=== PATIENT | female | born 1975 | race Two or more races ===

== ENCOUNTER 2020-05-11 10:35 | Outpatient (REF) | payer SELFPAY ==
--- NOTE | 2020-05-11 | MM_ITS ---
EXAMINATION: MM SCREENING DIGITAL BREAST TOMOSYNTHESIS, BILATERAL CLINICAL INFORMATION: Screening. Asymptomatic. Family history breast cancer (mother, aunt, grandmother). The lifetime risk of breast cancer based on the Tyrer-Cuzick Model is 21%. COMPARISON: Mammography: 05/06/2019, 04/30/2018, 12/28/2016 TECHNIQUE: Digital breast tomosynthesis is performed in both the craniocaudal and mediolateral oblique views along with computer-aided detection (CAD). Synthesized 2D images are generated from the tomosynthesis. Additional left CC and right MLO views are provided. FINDINGS: There are scattered areas of fibroglandular density (ACR BI-RADS breast composition Category b). There are no significant masses, abnormal calcifications, or other abnormalities. Parenchymal pattern is similar to prior exams. There is no developing density. No significant changes. MM/MM tomosynthesis screening BI IMPRESSION: No mammographic evidence of malignancy. ASSESSMENT: BI-RADS 1: Negative RECOMMENDATION: Routine annual mammography screening. This patient's information was entered into a reminder system with a target due date for their next mammogram.
== END 2020-05-11 10:36 | disposition home or self-care (01) ==
LOC: HO.MAMMO 10:35
PROVIDERS: PCP Internal Medicine; Visit Provider Internal Medicine
DX: Z12.31 Encounter for screening mammogram for malignant neoplasm of breast (principal)
CPT/HCPCS: 77063; 77067

== ENCOUNTER 2020-09-14 10:17 | Outpatient (REF) | payer OTHER, SELFPAY ==
[2020-09-14 11:02] LABS: MANUAL DIFF FLAG NO
[2020-09-14 11:10] LABS: Basophils Absolute Auto 0.1 X10*3/uL (0.0-0.2); Basophils Percent Auto 0.7 % (0-2); Eosinophils Absolute Auto 0.1 X10*3/uL (0.0-0.4); Eosinophils Percent Auto 0.8 % (0-4); Hematocrit 43.8 % (37-47); Hemoglobin 14.3 g/dl (12.0-16.0); Imm Gran Abs Auto 0.02 X10*3/uL (0.00-0.03); Imm Gran Pct Auto 0.3 % (0.0-0.4); Lymphocytes Absolute Auto 2.1 X10*3/uL (1.2-4.9); Lymphocytes Percent Auto 28.4 % (20-40); Mean Corpuscular HGB Conc 32.6 g/dl (31.0-35.0); Mean Corpuscular Hemoglobin 29.9 pg (27.0-33.0); Mean Corpuscular Volume 91.6 fL (80-98); Mean Platelet Volume 10.9 fL (9.4-12.3); Monocytes Absolute Auto 0.6 X10*3/uL (0.1-1.2); Monocytes Percent Auto 7.4 % (2-11); Neutrophils Absolute Auto 4.7 X10*3/uL (2.0-8.3); Neutrophils Percent Auto 62.4 % (45-73); Platelet Count 270 X10*3/uL (160-400); Red Blood Count 4.78 X10*6/uL (4.20-5.50); Red Cell Distribution Width 14.2 % (11.0-16.0); White Blood Count 7.4 X10*3/uL (4.8-10.8)
[2020-09-14 11:27] LABS: Estimated Average Glucose 88 mg/dL; Hemoglobin A1c % 4.7 %
[2020-09-14 11:29] LABS: Alanine Aminotransferase 11 U/L (0-31); Albumin Level 4.4 g/dL (3.5-5.0); Alkaline Phosphatase 61 U/L (39-117); Anion Gap 13 (12-20); Aspartate Amino Transferase 13 U/L (5-31); Bilirubin Direct 0.3 mg/dL (0.0-0.5); Bilirubin Total 1.1 mg/dL (0.0-1.0); Blood Urea Nitrogen 12 mg/dL (9-16); Calcium 9.4 mg/dL (8.4-10.2); Carbon Dioxide 24 mmol/L (22-29); Chloride 108 mmol/L (96-108); Cholesterol 199 mg/dL; Estimated Glomerular Filt Rate > 60; Glucose Random 99 mg/dL (60-115); HDL Cholesterol 50 mg/dL; LDL Cholesterol Calculated 129 mg/dl; Potassium 4.7 mmol/L (3.3-5.1); Sodium 140 mmol/L (135-145); Total Protein 7.8 g/dL (6.5-8.0); Triglycerides 102 mg/dL
[2020-09-14 11:50] LABS: TSH reflex Free T4 1.44 uIU/mL (0.32-4.0); Vitamin D 25-OH Total 18.8 ng/mL (>30)
== END 2020-09-14 10:18 | disposition home or self-care (01) ==
LOC: HO.LAB 10:17
PROVIDERS: PCP Internal Medicine; Visit Provider Internal Medicine
DX: Z00.00 Encounter for general adult medical examination without abnormal findings (principal)
CPT/HCPCS: 36415; 80048; 80061; 80076; 82306; 83036; 84443; 85025

== ENCOUNTER 2021-07-19 08:55 | Outpatient (REF) | payer OTHER, SELFPAY ==
--- NOTE | ~2021-07-19 | MM_ITS ---
EXAMINATION: MM SCREENING DIGITAL BREAST TOMOSYNTHESIS, BILATERAL CLINICAL INFORMATION: Screening. Asymptomatic. The lifetime risk of breast cancer based on the Tyrer-Cuzick Model is 15%. COMPARISON: Mammography: 05/11/2020, 05/06/2019, 04/30/2018 TECHNIQUE: Digital breast tomosynthesis is performed in both the craniocaudal and mediolateral oblique views along with computer-aided detection (CAD). Synthesized 2D images are generated from the tomosynthesis. FINDINGS: There are scattered areas of fibroglandular density (ACR BI-RADS breast composition Category b). There are no significant masses, abnormal calcifications, or other abnormalities. Parenchymal pattern is similar to prior studies. There is no developing density or architectural abnormality. The axilla and skin contours are unremarkable. No significant changes. MM/MM tomosynthesis screening BI IMPRESSION: No mammographic evidence of malignancy. ASSESSMENT: BI-RADS 1: Negative RECOMMENDATION: Routine annual mammography screening. This patient's information was entered into a reminder system with a target due date for their next mammogram.
== END 2021-07-19 08:56 | disposition home or self-care (01) ==
LOC: HO.MAMMO 08:55
PROVIDERS: PCP Internal Medicine; Visit Provider Internal Medicine
DX: Z12.31 Encounter for screening mammogram for malignant neoplasm of breast (principal)
CPT/HCPCS: 77063; 77067

== ENCOUNTER 2022-07-25 08:52 | Outpatient (REF) | payer OTHER, SELFPAY ==
--- NOTE | ~2022-07-25 | MM_ITS ---
EXAMINATION: MM SCREENING DIGITAL BREAST TOMOSYNTHESIS, BILATERAL CLINICAL INFORMATION: Screening. Asymptomatic. The lifetime risk of breast cancer based on the Tyrer-Cuzick Model is 18%. COMPARISON: Mammography: 07/19/2021, 05/11/2020, 05/06/2019 TECHNIQUE: Digital breast tomosynthesis is performed in both the craniocaudal and mediolateral oblique views along with computer-aided detection (CAD). Synthesized 2D images are generated from the tomosynthesis. Additional right CC view is provided. FINDINGS: There are scattered areas of fibroglandular density (ACR BI-RADS breast composition Category b). There are no significant masses, abnormal calcifications, or other abnormalities. No architectural abnormality or developing density or significant change from prior studies. The axilla are unremarkable. Skin contours are smooth. MM/MM tomosynthesis screening BI IMPRESSION: No mammographic evidence of malignancy. ASSESSMENT: BI-RADS 1: Negative RECOMMENDATION: Routine annual mammography screening. This patient's information was entered into a reminder system with a target due date for their next mammogram.
== END 2022-07-25 08:53 | disposition home or self-care (01) ==
LOC: HO.MAMMO 08:52
PROVIDERS: Visit Provider Internal Medicine
DX: Z12.31 Encounter for screening mammogram for malignant neoplasm of breast (principal)
CPT/HCPCS: 77063; 77067

== ENCOUNTER 2023-01-30 09:10 | Outpatient (REF) | payer OTHER, SELFPAY ==
[2023-01-30 09:28] LABS: MANUAL DIFF FLAG NO
[2023-01-30 09:50] LABS: Basophils Absolute Auto 0.1 X10*3/uL (0.0-0.2); Basophils Percent Auto 0.7 % (0-2); Eosinophils Absolute Auto 0.2 X10*3/uL (0.0-0.4); Eosinophils Percent Auto 2.3 % (0-4); Hematocrit 44.2 % (37.0-47.0); Hemoglobin 14.3 g/dl (12.0-16.0); Imm Gran Abs Auto 0.02 X10*3/uL (0.00-0.03); Imm Gran Pct Auto 0.2 % (0.0-0.4); Lymphocytes Absolute Auto 2.1 X10*3/uL (1.2-4.9); Lymphocytes Percent Auto 24.5 % (20-40); Mean Corpuscular HGB Conc 32.4 g/dl (31.0-35.0); Mean Corpuscular Hemoglobin 29.9 pg (27.0-33.0); Mean Corpuscular Volume 92.3 fL (80.0-98.0); Mean Platelet Volume 10.4 fL (9.4-12.3); Monocytes Absolute Auto 0.6 X10*3/uL (0.1-1.2); Monocytes Percent Auto 7.5 % (2-11); Neutrophils Absolute Auto 5.4 x10*3/uL (2.0-8.3); Neutrophils Percent Auto 64.8 % (45-73); Platelet Count 294 X10*3/uL (160-400); Red Blood Count 4.79 X10*6/uL (4.20-5.50); White Blood Count 8.4 X10*3/uL (4.8-10.8)
[2023-01-30 09:57] LABS: Estimated Average Glucose 91 mg/dL; Hemoglobin A1c % 4.8 % (<6.0)
[2023-01-30 10:28] LABS: Alanine Aminotransferase 11 U/L (0-31); Albumin Level 4.2 g/dL (3.5-5.0); Alkaline Phosphatase 65 U/L (39-117); Anion Gap 14 (12-20); Aspartate Amino Transferase 13 U/L (5-31); Bilirubin Direct 0.2 mg/dL (0.0-0.5); Bilirubin Total 0.9 mg/dL (0.0-1.0); Blood Urea Nitrogen 14 mg/dL (9-16); Calcium 9.6 mg/dL (8.4-10.2); Carbon Dioxide 24 mmol/L (22-29); Chloride 106 mmol/L (96-108); Cholesterol 216 mg/dL (<200); Estimated Glomerular Filt Rate > 60; Glucose Random 93 mg/dL (60-115); HDL Cholesterol 52 mg/dL (>40); LDL Cholesterol Calculated 143 mg/dL (<100); Potassium 4.3 mmol/L (3.3-5.1); Sodium 140 mmol/L (135-145); Total Protein 7.7 g/dL (6.5-8.0); Triglycerides 106 mg/dL (<150)
[2023-01-30 10:46] LABS: Thyroid Stimulating Hormone 2.35 uIU/mL (0.32-4.0)
[2023-02-05 15:29] LABS: Anti Nuclear Antibody Screen NEGATIVE (NEGATIVE)
== END 2023-01-30 09:11 | disposition home or self-care (01) ==
LOC: HO.LAB 09:10
PROVIDERS: PCP Internal Medicine; Visit Provider Internal Medicine
DX: R53.82 Chronic fatigue, unspecified (principal)
CPT/HCPCS: 36415; 80048; 80061; 80076; 83036; 84443; 85025; 86038

== ENCOUNTER 2023-05-07 10:44 | Outpatient (AMB) | payer OTHER, SELFPAY ==
--- NOTE | 2023-05-07 10:48 | A.OFFVIS_ITS ---
Intake Vital Signs 05/07/23 10:50 Height 5 ft 3 in Weight 248 lb 7.375 oz BMI 44.0 BP 112/70 Blood Pressure Location Lt brachial Position Sitting Pulse 80 Pulse Source Pulse Oximeter Temp 97 F Temp Source Skin Pulse Oximetry (%) 98 Oxygen Delivery Method Room Air Intake Visit Reasons: + JIM Intake Note: New pt presents today for +JIM consult. C/o joint pain, fatigue, difficulty staying asleep due to pain, feels the pain in her bones, hip pain. Pain started approx at age 14. Former rheum patient in [place] where she was diagnosed with JIM. States seen by our department 4-5 years ago. 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 C/o joint pain, fatigue, difficulty staying asleep due to pain, feels the pain in her bones, hip pain. Pain started approx at age 14. Former rheum patient in [place] where she was diagnosed with JIM. States seen by our department 4-5 years ago.? Patient snores loudly. Has difficulty falling and staying asleep. Her pain is most severe at night. 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, 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 Female Reproductive History Menstrual Total pregnancies: 3 Ab spontaneous: 1 Review of Systems Const Reports fatigue, Reports headache(s) and Reports weight gain ENT Reports headache(s) Musc Reports arthralgias, Reports joint swelling and Reports stiffness Skin/Breast Reports pruritus and Reports rash Neuro Reports headache(s) Psych Reports abnormal sleep pattern, Reports anxiety and Reports depression Endo Reports fatigue Physical Exam Vital Signs: Last Vital Signs Temp 97 F 05/07/23 10:50 Pulse 80 05/07/23 10:50 BP 112/70 05/07/23 10:50 Pulse Ox 98 05/07/23 10:50 Oxygen Delivery Method Room Air 05/07/23 10:50 BMI result Body Mass Index 44.0 Const General: cooperative, healthy appearing and comfortable Nutritional Appearance: obese morbidly obese Orientation/consciousness: patient oriented x3 Limitations: no limitations HEENT Head: Yes normocephalic and Yes atraumatic Mouth: moist mucous membranes Resp Effort & Inspection: normal respiratory effort and able to speak in complete sentences Auscultation: clear to auscultation bilaterally Cardio Rate: regular rate Rhythm: regular rhythm Skin Other: Dry skin on knuckles General skin exam: no rashes or lesions noted Neuro General: patient oriented x3 Extrem Other: Multiple fibromyalgia tender points Normal nailfold capillaroscopy No active synovitis Results Reviewed Results Reviewed: Labs 03/2022? Positive JIM direct ESR 9 Labs 01/2023? JIM by IFA negative Basic metabolic normal? HbA1c 4.8% CBC unremarkable? TSH 2.35 Collection Date - 03/30/2017)?ANTIBODY TO SS-A ANTIGEN? <1.0? <1.0 - AI?ANTIBODY TO SS-B ANTIBODY? <1.0? <1.0 - AI?Clinical Info: Negative lab? Lab:14-3-3 ETA PROTEIN (Order Date - 03/30/2017) (Collection Date - 03/30/2017)?14-3-3 ETA PROTEIN <0.2? <0.2 - ng/mL?Clinical Info: Negative lab? Lab:CPK (Order Date - 03/30/2017) (Collection Date - 03/30/2017)?CPK? 87? 26-140 - U/L?Clinical Info: Normal lab? Lab:LYME IGM & IGG RFLX WB (Order Date - 03/30/2017) (Collection Date - 03/30/2017)?LYME IGM NEGATIVE? NEGATIVE -?LYME IGG NEGATIVE? NEGATIVE -?Clinical Info: Negative lab? Lab:SCLERODERMA AB (Order Date - 03/30/2017) (Collection Date - 03/30/2017)?SCLERODERMA AB? <1.0? <1.0 - AI?Clinical Info: Negative lab? Lab:DNA,DOUBLE STRANDED AB ([place]) (Order Date - 03/30/2017) (Collection Date - 03/30/2017)?DNA DOUBLE STRANDED? 6 AA <=4 - IU/mL?Clinical Info: Indeterminate lab? Lab:CYCLIC CITRULINATED PEPTIDE AB ([facility]) (Order Date - 03/30/2017) (Collection Date - 03/30/2017)?CYCLIC CITRULINATED PEPTIDE AB <16? <20 - Units?Clinical Info: Negative lab? Assessment & Plan Assessment & Plan (1) JIM positive: Code(s): R76.8 - Other specified abnormal immunological findings in serum Plan: This is a 47-year-old female presents for evaluation of positive JIM. Apparently patient had a positive JIM since 2016. In 2021 I see a positive JIM direct, when JIM was repeated by IFA in 01/2023 it was negative. I do not see any signs of an autoimmune rheumatic disease upon my evaluation. Positive JIM can be seen in up to 20% of the population with no autoimmune rheumatic disease. Follow-up with PCP Plan I spent 25 minutes reviewing patient's chart, evaluating patient, counseling patient and documenting in the chart Coding Level of Care Code New Pt Level 3 (05000) Diagnoses JIM positive R76.8
[2023-05-07 10:50] VITALS: BP 112/70; PULSE 80; TEMP 36.1; O2SAT 98; BMI 44.0
== END 2023-05-07 11:21 | disposition home or self-care (01) ==
PROVIDERS: PCP Internal Medicine; Visit Provider Student in an Organized Health Care Education/Training Program
DX: R76.8 Other specified abnormal immunological findings in serum (principal)
CPT/HCPCS: 99203

== ENCOUNTER → 2023-05-07 10:44 | Outpatient (BNVA) | payer OTHER, SELFPAY | PROVIDERS: PCP Internal Medicine; Visit Provider Student in an Organized Health Care Education/Training Program | DX: R76.8 Other specified abnormal immunological findings in serum (principal) | CPT/HCPCS: 99202 ==

== ENCOUNTER 2023-07-31 08:54 | Outpatient (REF) | payer OTHER, SELFPAY | END 2023-07-31 08:55 | disposition home or self-care (01) | LOC: HO.MAMMO 08:54 | PROVIDERS: PCP Internal Medicine; Visit Provider Internal Medicine | DX: Z12.31 Encounter for screening mammogram for malignant neoplasm of breast (principal) | CPT/HCPCS: 77063; 77067 ==

== ENCOUNTER → 2023-07-31 09:00 | Outpatient (BNV) | payer OTHER, SELFPAY | PROVIDERS: PCP Internal Medicine; Visit Provider Radiology Diagnostic Radiology | DX: Z12.31 Encounter for screening mammogram for malignant neoplasm of breast (principal) | CPT/HCPCS: 77063; 77067 ==

== ENCOUNTER 2024-01-05 09:44 | Outpatient (REF) | payer OTHER, SELFPAY ==
--- NOTE | ~2024-01-05 | XR_ITS ---
EXAMINATION: XR SHOULDER, LEFT CLINICAL INFORMATION: M25.512 - Pain in left shoulder COMPARISON: Shoulder radiographs 06/04/2019 TECHNIQUE: Three views of the shoulder. FINDINGS: No acute fracture or dislocation. Mild osteoarthritis of the shoulder, possibly slightly progressed from prior. Soft tissues are unremarkable. XR/XR shoulder LT min 2V IMPRESSION: Mild osteoarthritis of the shoulder, possibly slightly progressed from prior. Electronically signed by: Ness High MD 02/09/2024 12:42 PM EDT
== END 2024-01-05 09:45 | disposition home or self-care (01) ==
LOC: HO.HOSX 09:44
PROVIDERS: Visit Provider Physician Assistant
DX: M25.512 Pain in left shoulder (principal); M75.82 Other shoulder lesions, left shoulder; M54.2 Cervicalgia; G89.29 Other chronic pain
CPT/HCPCS: 20610; 73030; 99202; J1010

== ENCOUNTER 2024-01-05 15:29 | Outpatient (AMB) | payer OTHER, SELFPAY ==
--- NOTE | 2024-01-05 15:46 | A.OFFVIS_ITS ---
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 She states she has pain in her left shoulder that is aggravated with reaching back, lifting, and sleeping at night. She also reports pain in her neck with turning to the left. She works at [employer]. [facility] Medical History (Updated 01/05/24 @ 15:56 by Mumtaz Gomes PA-C) Angioedema Chronic low back pain Urinary incontinence Pain in joint, multiple sites Fatigue JIM positive Surgical History (System 12/07/23 @ 12:19 by Mamta Rincon) H/O foot surgery No history of previous surgery Family History Mother JIM positive Arthritis Social History (System 12/07/23 @ 12:19 by Mamta Rincon) Household Members: Spouse and Children Alcohol intake: current Alcohol intake frequency: holidays/special occasions only Alcohol type: wine Patient Tobacco Use Status: Never used Tobacco Current occupational status: employed 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, 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 Review of Systems Const All systems reviewed & are unremarkable except as noted in HPI and below Physical Exam Vital Signs: BMI result Body Mass Index 40.7 Const General: cooperative, healthy appearing, comfortable, no acute distress, well developed and alert Orientation/consciousness: patient oriented x3 HEENT Head: Yes normal to inspection, Yes normocephalic and Yes atraumatic Eyes General: appearance normal, both eyes and all related structures Resp Effort & Inspection: normal respiratory effort and able to speak in complete sentences Cardio Rate: regular rate Peripheral pulses: Peripheral pulses 2+ throughout GI Palpation (GI): Soft to palpation Skin Lesions: no lesions Rashes: no rashes Neuro General: patient oriented x3 Extrem Other: Left shoulder: Normal to inspection. Tenderness over the bicipital groove and along the deltoid region of the shoulder. Forward flexion to 175, external rotation to 90, internal rotation to S1. 5/5 RTC strength. Positive O?Abraham?s. NVI. Office Procedures Joint Injection/Aspiration Joint Injection/Aspiration Primary Site: left shoulder Prep: site was prepped using aseptic technique, ethochloride spray was applied and injection warnings given Injected: 80 mg of, DepoMedrol, with 8 mL of, 1% plain lidocaine and in the joint Approach Used: anterolateral Procedure: The patient tolerated the procedure well and there was some relief with the local anesthesia Coding - Glenohumeral/Tronchanteric Bursa/Intraarticular Procedure code (CPT) selection complete Results Reviewed Results Reviewed: Xrays were obtained in the office today and personally reviewed by me of the left shoulder show mild ac oa Assessment & Plan Assessment & Plan (1) Tendonitis of left rotator cuff: Code(s): M75.82 - Other shoulder lesions, left shoulder Category: Medical (2) Myofascial neck pain: Code(s): M54.2 - Cervicalgia Category: Medical Plan We discussed options today, which include steroid injection. The patient did consent to move forward with the left shoulder injection, which was tolerated well. I recommended rest, ice, and elevation and OTC anti-inflammatories as needed for discomfort. If symptoms persist or worsen, patient will contact the office, otherwise follow-up as needed. Orders: Orders XR shoulder LT min 2V 01/05/24 M25.512 - Pain in left shoulder PT Evaluation and Treatment 01/05/24 M75.82 - Other shoulder lesions, left shoulder, M54.2 - Cervicalgia Patient Instructions: Scribed for Mumtaz Gomes PA-C, by Isac Thompson claim review medical director, on 01/05/2024 at 3:30 PM EST.? I, Mumtaz Gomes PA-C, have personally reviewed and agree with the information entered by the scribe. Coding Level of Care Code New Pt Level 3 (43439) Diagnoses Tendonitis of left rotator cuff M75.82 Myofascial neck pain M54.2 CPT Codes Coding - Joint 7: - Glenohumeral/Tronchanteric Bursa/Intraarticular ([id number])
[2024-01-05 15:47] VITALS: BMI 40.7
== END 2024-01-05 16:17 | disposition home or self-care (01) ==
PROVIDERS: PCP Internal Medicine; Visit Provider Physician Assistant
DX: M75.82 Other shoulder lesions, left shoulder (principal); M54.2 Cervicalgia
CPT/HCPCS: 20610; 99203

== ENCOUNTER 2024-06-12 15:02 | Outpatient (REF) | payer OTHER, SELFPAY ==
[2024-06-16 14:26] LABS: H Pylori Breath Test Negative (Negative)
== END 2024-06-12 15:03 | disposition home or self-care (01) ==
LOC: HO.LNP 15:02
PROVIDERS: PCP Internal Medicine; Visit Provider Internal Medicine
DX: K21.9 Gastro-esophageal reflux disease without esophagitis (principal); R19.4 Change in bowel habit; R13.10 Dysphagia, unspecified; R11.10 Vomiting, unspecified; E78.5 Hyperlipidemia, unspecified; Z11.2 Encounter for screening for other bacterial diseases
CPT/HCPCS: 83013; 99202

== ENCOUNTER 2024-06-12 15:02 | Outpatient (AMB) | payer OTHER, SELFPAY ==
--- NOTE | 2024-06-12 15:04 | MHC.OFFVIS ---
Vital Signs 06/12/24 15:05 Height 5 ft 3 in Weight 240 lb 4.862 oz BMI 42.6 BP 140/73 H Blood Pressure Location Lt brachial Position Sitting Pulse 79 Intake Visit Reasons: Gastroesophageal reflux disease (GERD) Intake Note: Aura presents in the office as a new patient for GERD. CC: She is here today because of acid reflux - she diarrhea. She gets a strange feeling - after COVID everything seems to have changed. She gets a hot feeling in her throat after eating or drinking. 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 Describes this as burning sensation coming up to her throat. Has regurgitation occasionally. Sometimes also has sensation of food stuck in throat, has to neisha with liquids. Sx occur at least once a month. Takes PPI as needed. EGD done more than 10 years ago in [place]. Additionally, also has constipation. Reprots for hte past 4-5 years also has been having liquid/mushy stools. NO blood in stool. No unintentional weight loss. No fam hx of CRC. Mother has breast ca. PFSH Medical History Angioedema Chronic low back pain Urinary incontinence Pain in joint, multiple sites Fatigue JIM positive Surgical History History of esophagogastroduodenoscopy (EGD) H/O foot surgery No history of previous surgery Family History Mother IJM positive Arthritis Social History Household Members: Spouse and Children Alcohol intake: current Alcohol intake frequency: holidays/special occasions only Alcohol type: wine Patient Tobacco Use Status: Never used Tobacco Current occupational status: employed Current occupation: [employer], 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 Review of Systems Const All systems reviewed & are unremarkable except as noted in HPI and below Physical Exam Vital Signs: Last Vital Signs Pulse 79 06/12/24 15:05 BP 140/73 H 06/12/24 15:05 BMI result Body Mass Index 42.6 No apparent distress Nonicteric Abdomen soft, nondistended Alert and oriented x3, normal gait Assessment & Plan Assessment & Plan (1) Change in bowel habit: Code(s): R19.4 - Change in bowel habit Category: Medical (2) Dysphagia: Code(s): R13.10 - Dysphagia, unspecified Category: Medical (3) Regurgitation of food: Code(s): R11.10 - Vomiting, unspecified Category: Medical (4) GERD (gastroesophageal reflux disease): Code(s): K21.9 - Gastro-esophageal reflux disease without esophagitis Category: Medical Plan 1. Abd pain/reflux/regurgitation Ddx include GERD, esophagitis, EoE, dysmotility. Plan: - Check H Pylori in office - Labs as below - Barium swallow - Reviewed that PPI not as effective as PRN med. Can take pepcid as needed instead. 2. Change in bowel habits Ddx include IBD, celiac, IBS, microscopic colitis, SIBO, gallstones. Plan: - LAbs as below - EGD/colo to be booked for further evaluation Follow up after scopes Orders: Orders Hemoglobin A1c Today E78.5 - Hyperlipidemia, unspecified Lipid Panel Today E78.5 - Hyperlipidemia, unspecified Calprotectin, Fecal Today R19.4 - Change in bowel habit Liver Panel Today R19.4 - Change in bowel habit FL barium swallow Today R13.10 - Dysphagia, unspecified Transglutaminase IgA Today R19.4 - Change in bowel habit Immunoglobulin A Today R19.4 - Change in bowel habit Medications: New peg 3350-electrolytes 236-22.74-6.74 -5.86 gram (Golytely) as per split prep instructions, until fecal effluent is clear 240 mL PO Q10M 4,000 mL 0RF colonoscopy famotidine (Pepcid) 20 mg PO BEDTIME 90 tabs 0RF Coding Level of Care Code New Pt Level 4 (10505) Complex EM visit Add On G2211 Diagnoses Change in bowel habit R19.4 Dysphagia R13.10 Regurgitation of food R11.10 GERD (gastroesophageal reflux disease) K21.9
[2024-06-12 15:05] VITALS: BP 140/73; PULSE 79; BMI 42.6
== END 2024-06-12 15:51 | disposition home or self-care (01) ==
PROVIDERS: PCP Internal Medicine; Visit Provider Internal Medicine
DX: R19.4 Change in bowel habit (principal); R13.10 Dysphagia, unspecified; R11.10 Vomiting, unspecified; K21.9 Gastro-esophageal reflux disease without esophagitis
CPT/HCPCS: 99204; G2211

== ENCOUNTER 2024-08-21 08:03 | Outpatient (REF) | payer MEDICAID, SELFPAY ==
[2024-08-21 09:01] LABS: Estimated Average Glucose 100 mg/dL; Hemoglobin A1c % 5.1 % (<6.0); Total Hemoglobin (HGBA1C) 3810.5149 umol/L
[2024-08-21 09:13] LABS: Alanine Aminotransferase 12 U/L (0-31); Albumin Level 4.1 g/dL (3.5-5.0); Alkaline Phosphatase 70 U/L (39-117); Aspartate Amino Transferase 15 U/L (5-31); Bilirubin Direct 0.2 mg/dL (0.0-0.5); Bilirubin Total 0.5 mg/dL (0.0-1.0); Cholesterol 222 mg/dL (<200); HDL Cholesterol 68 mg/dL (>40); LDL Cholesterol Calculated 139 mg/dL (<100); Total Protein 7.5 g/dL (6.5-8.0); Triglycerides 78 mg/dL (<150)
[2024-08-22 07:34] LABS: Immunoglobulin A 277 mg/dL (47-310)
[2024-08-24 07:38] LABS: Transglutaminase IgA <1.0 U/mL
== END 2024-08-21 08:04 | disposition home or self-care (01) ==
LOC: HO.LAB 08:03
PROVIDERS: Visit Provider Internal Medicine
DX: E78.5 Hyperlipidemia, unspecified (principal); R19.4 Change in bowel habit
CPT/HCPCS: 36415; 80061; 80076; 82784; 83036; 86364

== ENCOUNTER 2024-08-23 08:42 | Outpatient (REF) | payer MEDICAID, SELFPAY ==
[2024-08-30 20:18] LABS: Calprotectin, Fecal 22 mcg/g
== END 2024-08-23 08:43 | disposition home or self-care (01) ==
LOC: HO.LNP 08:42
PROVIDERS: Visit Provider Internal Medicine
DX: R19.4 Change in bowel habit (principal)
CPT/HCPCS: 83993

== ENCOUNTER 2024-08-24 18:27 | Outpatient (REF) | payer MEDICAID, SELFPAY ==
[2024-08-29 14:54] LABS: HPV Genotype 16 Negative (Negative); HPV Genotype 18 Negative (Negative); HPV High Risk Negative (Negative)
== END 2024-08-24 18:28 | disposition home or self-care (01) ==
LOC: HO.LNP 18:27
PROVIDERS: Visit Provider Internal Medicine
DX: Z12.4 Encounter for screening for malignant neoplasm of cervix (principal); Z11.51 Encounter for screening for human papillomavirus (HPV)
CPT/HCPCS: 87626; 88175

== ENCOUNTER 2024-08-29 14:53 | Outpatient (REF) | payer MEDICAID, SELFPAY ==
--- OUTSIDE RECORDS SUMMARY | 2024-08-29 17:44 | XMS_ITS | Encounter Summary ---
Author Organization [employer] Address [address] [facility] [address] [address] Care Team Providers Care Digital X Ray Service Engineer Name Role Phone Beth Donnelly MD Primary Care Provide r Encounter Details Date Type Department Care Team ([facility] st Contact Info) Description 08/24/2024 Orders Only [facility] MEDICINE [address] [place], [place] [phone] Beth Donnelly MD [address] [place], [place] [phone] Social History Tobacco Use Types Packs/Day Years [...] Care Team (Late st Contact Info) Description 09/01/2024 2:45 PM EDT Office Visit [facility] MEDICINE [address] [place] [address] Beth Donnelly MD [address] [place] [address] 01/30/2025 3:00 PM EDT Office Visit [facility] ADULT DENTAL [address] [place] [address] Alma Tellez documented as of this encounter Procedures Procedure Name Priority Date/Time Associated Diagnosis Comments HPV DNA, LOW/HIGH RISK Routine 08/24/2024 11:34 AM EDT documented in this encounter Results * HPV DNA, Low/High Risk (08/24/2024 11:34 AM EDT) HPV High Risk Negative Negative [facility] HPV Genotype 16 Negative Negative [facility] HPV Genotype 18 Negative Negative [facility] Comment:HPV testing performe d at [facility] (CLIA#[id number]), [address] [place] [address].Testing for HPV was performed using the Tai AMARILIS 6800system. The presence of HPV in the female genital tract isassociated with a number of diseases, including cervicalcarcinoma. The HPV DNA high risk pool tests for HPV 31, 33,35, 39, 45, 51, 52, 56, 58, 59, 66 and 68. The testing forHPV 16 and 18 genotypes has also been performed. A positiveresult indicates detection of nucleic acid sequences fromone or more subtypes, whereas a negative result indicatessuch sequences were not detected. 08/24/2024 11:3 4 AM EDT 08/25/2024 6:50 AM EDT us Beth Gomez MD LAB BLOOD ORDERABLES Final Result [facility] [address] [place] [address] [phone] documented in this encounter Visit Diagnoses Not on filedocumented in this encounter Additional Health Concerns Assessment Noted Time PHQ-9 Depression Total Score: 0 01/21/20 23 3:27 PM EDT documented as of this encounter Care Teams Digital X Ray Service Engineer Relationship Specialty Start Date End Date Beth Donnelly MD [address] [place] [phone] PCP - General Family Medicine 05/01/19 documented as of this encounter
--- OUTSIDE RECORDS SUMMARY | 2024-08-29 17:44 | XMS_ITS | Encounter Summary ---
Author Organization [employer] Address [address] [facility] 7[facility] [place] [address] Care Team Providers Care Air Pollution Compliance Inspector Name Role Phone Beth Donnelly MD Primary Care Provide r Encounter Details Date Type Department Care Team (Latest Contact Info) Description 08/24/2024 Travel Social History Tobacco Use Types Packs/Day Years Used Date Smoking Tobacco: Never Passive Smoke Exposure: Never Smokeless Tobacco: Never Depression Answer Date Recorded Patient Health Questionnaire-9 Score 0 01/20/2023 Housing Stability Answer Date Recorded What is your housing situation today? I have junidavina arreola 03/17/[address] you [...] Description 09/01/2024 2:45 PM EDT Office Visit [facility] MEDICINE [address] [place] [address] Beth Donnelly MD [address] [place] [address] 01/30/2025 3:00 PM EDT Office Visit [facility] ADULT DENTAL [address] [place] [address] Alma Tellez documented as of this encounter Visit Diagnoses Not on filedocumented in this encounter Additional Health Concerns Assessment Noted Time PHQ-9 Depression Total Score: 0 01/21/20 23 3:27 PM EDT documented as of this encounter Care Teams Air Pollution Compliance Inspector Relationship Specialty Start Date End Date Beth Donnelly MD [address] [place] [address] [phone] PCP - General Family Medicine 05/01/19 documented as of this encounter
--- OUTSIDE RECORDS SUMMARY | 2024-08-29 17:44 | XMS_ITS | Clinical Summary ---
Author Organization [facility] Address [address] [place] [address] Phone Care Team Providers Care Financial Management Consultant Name Role Phone Frankie Ambriz MD Primary Care Provider [phone] Allergies Active Allergy Reactions Criticality Noted Date Comments Ibuprofen Angioedema High 08/20/2024 Medications No known medications Active Problems No known active problems Encounters Date Type Department Care Team Description 08/20/2024 9:44 AM EDT - 08/20/2024 2:10 PM EDT Emergency Emergency [address] [place] [address] Lux Palacios MD RSV infection (Primary Dx); Acute nonintractable headache, unspecified headache type Discharge Disposition: Home or Self Care from Last 3 Months Social History Tobacco Use Types Packs/Day Years Used Date Smoking Tobacco: Never Smokeless Tobacco: Never Tobacco Cessation:Counseling Given: Not Answered Comments Unknown Sex and Gender Information Value Date Recorded Sex Assigned at Female 08/20/2024 10:30 AM EDT Legal Sex Female 7:33 PM EST Gender Identity Female 08/20/2024 10:30 AM EDT Sexual Orientation Straight 08/20/2024 10 :30 AM EDT Obstetrics History Last Filed Vital Signs Vital Sign Reading Time Taken Comments Blood Pressure 149/75 08/20/2024 1:03 PM EDT Pulse 72 08/20/2024 1:03 PM EDT Temperature 36.5 ??C (97.7 ??F) 08/20/2024 1:03 PM ED T Respiratory Rate 17 08/20/2024 1:03 PM EDT Oxygen Saturation 99% 08/20/2024 1:03 PM EDT Inhaled Oxygen Concentration - - Weight 109 kg (240 lb) 08/20/2024 9:21 AM EDT Height 160 cm (5' 3 ) 08/20/2024 9:21 AM EDT Body Mass Index 42.51 08/20/2024 9:21 AM EDT Plan of Treatment Health Maintenance Due Date Last Done Comments Breast Cancer Screening 1974 DTaP,Tdap,and Td Vaccines (1 - Tdap) 1993 Hepatitis B Vaccines (1 of 3 - 19+ 3-dose series) 1993 Cervical Cancer Screening: Pap Smear 08/20/1995 Colorectal Cancer Screening: Colonoscopy 05/02/2022 HIV Screening 05/02/2022 Hepatitis C Screening 05/02/2022 Social Influencers of Health Screening 05/02/2022 Depression Screening 01/21/2024 01/20/2023 COVID-19 Vaccine ( season) 2024 04/28/2021, 07/26/2020, 07/05/2020 Pneumococcal Vaccine: 50+ Years (1 of 1 - PCV) 2024 Zoster Vaccines (1 of 2) 2024 Cholesterol Screening (Lipid Panel) 01/31/2028 01/30/2023 Influenza Vaccine Completed 03/02/2024, , 03/27/2020, Additional [...] 64 Years) Aged Out No longer eligible based on patient's age to complete this topic RSV Immunization Patients Under 20 months Aged Out No longer eligible based on patient's age to complete this topic Varicella Vaccines Aged Out No longer eligible based on patient's age to complete this topic Procedures Procedure Name Priority Date/Time Associated Diagnosis Comments CBC WITH AUTO DIFFERENTIAL STAT 08/20/2024 11:37 AM EDT BASIC METABOLIC PANEL STAT 08/20/2024 11:37 AM EDT CBC AND DIFFERENTIAL STAT 08/20/2024 11:37 AM EDT RESPIRATORY VIRUS PANEL MOLECULAR STUDY STAT 08/20/2024 11:[address] HEAD WO CONTRAST STAT 08/20/2024 1 1:31 AM EDT from Last 3 Months Results * (ABNORMAL) Respiratory virus panel molecular study (08/20/2024 11:37 AM EDT) Adenovirus Detection by PCR Not Detected Not Detected LAB MICROBIOLOGY METHOD 08/20/2024 1:28 PM EDT [facility] Influenza A PCR Not Detected Not Detected LAB MICROBIOLOGY METHOD 08/20/2024 1:28 PM EDT [facility] Influenza B PCR Not Detected Not Detected LAB MICROBIOLOGY METHOD 08/20/2024 1:28 PM EDT [facility] Coronavirus 229E Not Detected Not Detected LAB MICROBIOLOGY METHOD 08/20/2024 1:28 PM EDT [facility] Coronavirus HKU1 Not Detected Not Detected LAB MICROBIOLOGY METHOD 08/20/2024 1:28 PM EDT [facility] Coronavirus OC43 Not Detected Not Detected LAB MICROBIOLOGY METHOD 08/20/2024 1:28 PM EDT [facility] Coronavirus NL63 Not Detected Not Detected LAB MICROBIOLOGY METHOD 08/20/2024 1:28 PM EDT [facility] Parainfluenza Virus 1 Not Detected Not Detected LAB MICROBIOLOGY METHOD 08/20/2024 1:28 PM EDT [facility] Parainfluenza Virus 2 Not Detected Not Detected LAB MICROBIOLOGY METHOD 08/20/2024 1:28 PM EDT [facility] Parainfluenza Virus 3 Not Detected Not Detected LAB MICROBIOLOGY METHOD 08/20/2024 1:28 PM EDT [facility] Parainfluenza Virus 4 Not Detected Not Detected LAB MICROBIOLOGY METHOD 08/20/2024 1:28 PM EDT [facility] RSV PCR Detected(A ) Not Detected LAB MICROBIOLOGY METHOD 08/20/2024 1:28 PM EDT [facility] Human Metapneumovirus A and B Not Detected Not Detected LAB MICROBIOLOGY METHOD 08/20/2024 1:28 PM EDT [facility] Rhinovirus/Entero virus Not Detected Not Detected LAB MICROBIOLOGY METHOD 08/20/2024 1:28 PM EDT [facility] Bordetella pertussis Not Detected Not Detected LAB MICROBIOLOGY METHOD 08/20/2024 1:28 PM EDT [facility] Bordetella parapertussis Not Detected Not Detected LAB MICROBIOLOGY METHOD 08/20/2024 1:28 PM EDT [facility] Mycoplasma pneumo by PCR Not Detected Not Detected LAB MICROBIOLOGY METHOD 08/20/2024 1:28 PM EDT [facility] Chlamydia pneumoniae Not Detected Not Detected LAB MICROBIOLOGY METHOD 08/20/2024 1:28 PM EDT [facility] SARS COV-2 Not Detected Not Detected LAB MICROBIOLOGY METHOD 08/20/2024 1:28 PM EDT [facility] Swab Both anterior nares / Unknown Non-blood Collection / Unknown 08/20/2024 11:37 AM EDT 08/20/2024 12:10 PM EDT [facility] - 08/20/2024 1:28 PM EDT Testing was performed using the Outcome Referrals Respiratory Pathogen PCR Assay. All results must be correlated with the clinical findings. Results should not be used as the sole basis for diagnosis. False Negative results may occur from the presence of sequence variants in the region targeted by the assay or the presence of inhibitors. Results may be affected by concurrent antiviral/antimicrobial therapy or levels of organisms that are below the limit of detection. us Reynold TRUJILLO LAB MICROBIOLOGY - GENERAL ORDER SANG Final Result [facility] [address] [place] [address], * (ABNORMAL) CBC auto differential (08/20/2024 11:37 AM EDT) Pathologist [facility] WBC 7.3 4.8 - 10.8 K/mcL LAB HEMETOLOGY METHOD 08/20/2024 12:15 PM EDT [facility] RBC 5.10(H) 3.80 - 4.80 M/mcL LAB HEMETOLOGY METHOD 08/20/2024 12:15 PM EDT [facility] Hemoglobin 15.1 11.5 - 16.0 g/dL LAB HEMETOLOGY METHOD 08/20/2024 12:15 PM EDT [facility] Hematocrit 47.2(H) 35.0 - 47.0 % LAB HEMETOLOGY METHOD 08/20/2024 12:15 PM EDT [facility] MCV 93.3 79.0 - 98.0 FL LAB HEMETOLOGY METHOD 08/20/2024 12:15 PM EDT [facility] MCH 29.8 27.0 - 32.0 pcg LAB HEMETOLOGY METHOD 08/20/2024 12:15 PM EDT [facility] MCHC 32.0 32.0 - 37.0 g/dL LAB HEMETOLOGY METHOD 08/20/2024 12:15 PM EDT [facility] RDW 13.8 11.0 - 15.0 % LAB HEMETOLOGY METHOD 08/20/2024 12:15 PM EDT [facility] Platelets 253 130 - 400 K/mcL LAB [facility]EMETOLOGY [facility] MPV 11.5(H) 7.0 - 11.0 FL LAB HEMETOLOGY METHOD 08/20[facility]2024 [facility] NRBC 0.0 <1.0 % LAB HEMETOLOGY METHOD 08/20/2024 12:15 PM [facility] NRBC Absolute 0.00 <0.10 K/mcL LAB HEMETOLOGY METHOD 08/20/2024 12:15 PM [facility] Neutrophils Relative 66.3 % LAB HEMETOLOGY METHOD 08/20/2024 12:15 PM [facility] Lymphocytes Relative 23.6 % LAB HEMETOLOGY METHOD 08/20/2024 12:15 PM [facility] Monocytes Relative 7.7 % LAB HEMETOLOGY METHOD 08/20/2024 12:15 PM [facility] Eosinophils Relative 1.6 % LAB HEMETOLOGY METHOD 08/20/2024 12:15 PM [facility] Basophils Relative 0.5 % LAB HEMETOLOGY METHOD 08/20/2024 12:15 PM [facility] Immature Granulocytes Relative 0.3 % LAB HEMETOLOGY METHOD 08/20/2024 12:15 PM [facility] Neutrophils Absolute 4.83 1.50 - 7.00 K/mcL LAB HEMETOLOGY METHOD 08/20/2024 12:15 PM EDT [facility] Lymphocytes Absolute 1.72 1.00 - 5.00 K/mcL LAB HEMETOLOGY METHOD 08/20[facility]24 [facility] Monocytes Absolute 0.56 0.20 - 1.00 K/mcL LAB HEMETOLOGY METHOD 08/20/2024 12:15 PM [facility] Eosinophils Absolute 0.12 0.00 - 0.50 K/mcL LAB HEMETOLOGY METHOD 08/20/2024 12:15 PM EDT [facility] Basophils Absolute 0.04 0.00 - 0.20 K/mcL LAB HEMETOLOGY METHOD 08/20/2024 12:15 PM EDT [facility] Immature Granulocytes Absolute 0.02 0.00 - 0.03 K/mcL LAB HEMETOLOGY METHOD 08/20/2024 12:15 PM EDT [facility] Blood Venous blood specimen / Unknown Venipuncture / Unknown 08/20/2024 11:37 AM EDT 08/20/2024 12:09 PM EDT us Reynold TRUJILLO LAB BLOOD ORDERABLES Final Resul t [facility] [address] [place] [address], * (ABNORMAL) Basic metabolic panel (08/20/2024 11:37 AM EDT) Sodium 136 133 - 145 mmol/L LAB CHEMISTRY METHOD 08/20/2024 12:38 PM [facility] Potassium 4.3 3.5 - 5.5 mmol/L LAB CHEMISTRY METHOD 08/20/2024 12:38 PM [facility] Chloride 105 96 - 110 mmol/L LAB CHEMISTRY METHOD 08/20/2024 12:38 PM [facility] CO2 27 21 - 32 mmol/L LAB CHEMISTRY METHOD 08/20/2024 12:38 PM [facility] Anion Gap 4 3 - 11 LAB CHEMISTRY METHOD 08/20/2024 12:38 PM [facility] Glucose 101(H) 70 - 100 mg/dL LAB CHEMISTRY METHOD 08/20/2024 12:38 PM [facility] BUN 12 5 - 25 mg/dL LAB CHEMISTRY METHOD 08/20/2024 12:38 PM [facility] Creatinine 0.70 0.50 - 1.10 mg/dL LAB CHEMISTRY METHOD 08/20/2024 12:38 PM EDT [facility] eGFR 106 >=60 mL/min/1. 73m2 LAB CHEMISTRY METHOD 08/20/2024 12:38 PM EDT [facility] Comment:Calculation based on the??Chronic Kidney Disease Epidemiology Collaboration (CKD-EPI) equation refit??without adjustment for race. BUN/Creatinine Ratio 17.1 LAB CHEMISTRY METHOD 08/20/2024 12:38 PM EDT [facility] Calcium 10.0 8.5 - 10.5 mg/dL LAB CHEMISTRY METHOD 08/20/2024 12:38 PM EDT [facility] Blood Venous blood specimen / Unknown Venipuncture / Unknown 08/20/2024 11:37 AM EDT 08/20/2024 12:09 PM EDT us Reynold TRUJILLO LAB BLOOD ORDERABLES Final Resul t [facility] [address] [place] [address], * CT Head wo Contrast (08/20/2024 11:31 AM EDT) Anatomical Region Laterality Modality Head and Neck Computed Tomogra phy 08/20/2024 11:5 0 AM EDT Impressions 08/20/2024 11:55 AM EDT Impression: 1. Cerebral volume loss, particularly in the frontal lobes, appearing more than would be expected for the stated age. 2. No acute hemorrhage or intracranial mass effect. 3. Sinusitis. Telerad RONNIE ([id number]) -------- FINAL REPORT -------- Dictated By: Lilia Agarwal Dictated Date: 08/20/2024 11:50 ET Assigned Physician: Lilia Agarwal Reviewed and Electronically Signed By: Lilia Agarwal Signed Date: 08/20/2024 11:55 ET Workstation ID: [id number] Transcribed By: Self Edit Transcribed Date: 08/20/2024 11:50 ET Narrative 08/20/2024 11:55 AM EDT History: New headache. Comparison: No comparison imaging at this institution. Technique: Contiguous axial images were obtained at 2.5 mm intervals through the posterior fossa and at 5 mm intervals through the remainder of the brain without intravenous contrast. DLP: 808.85 mGy/cm GE LightSpeed VCT Iterative reconstruction technique Findings: The ventricular system is normal in size and configuration. Leon-white differentiation is maintained. There are cortical involutional changes, particularly in the frontal lobes, which are more than would be expected for the stated age. No abnormal intra- or extra-axial masses or fluid collections are seen. There is no evidence of acute intracranial hemorrhage. Mucoperiosteal thickening is seen within the sphenoid and partially imaged left maxillary sinuses. The left ethmoid sinus is nearly completely opacified. The mastoids are well pneumatized. The calvarium is intact. Procedure Note Lilia Agarwal MD - 08/20/2024 History: New headache. Comparison: No comparison imaging at this institution. Technique: Contiguous axial images were obtained at 2.5 mm intervalsthrough the posterior fossa and at 5 mm intervals through the remainder ofthe brain without intravenous contrast. DLP: 808.85 mGy/cm GE LightSpeed VCT Iterative reconstruction technique Findings: The ventricular system is normal in size and configuration. Leon- whitedifferentiation is maintained. There are cortical involutional changes,particularly in the frontal lobes, which are more than would be expectedfor the stated age. No abnormal intra- or extra-axial masses or fluid collections are seen.There is no evidence of acute intracranial hemorrhage. Mucoperiosteal thickening is seen within the sphenoid and partially imagedleft maxillary sinuses. The left ethmoid sinus is nearly completelyopacified. The mastoids are well pneumatized. The calvarium is intact. IMPRESSION: Impression: 1. Cerebral volume loss, particularly in the frontal lobes, appearing morethan would be expected for the stated age. 2. No acute hemorrhage or intracranial mass effect. 3. [place] ([id number]) -------- FINAL REPORT -------- Dictated By: Lilia Agarwal Dictated Date: 08/20/2024 11:50 ET Assigned Physician: Lilia Agarwal Reviewed and Electronically Signed By: Lilia Agarwal Signed Date: 08/20/2024 11:55 ET Workstation ID: [id number] Transcribed By: Self Edit Transcribed Date: 08/20/2024 11:50 ET Reynold TRUJILLO IMG CT PROCEDURES Final Result from Last 3 Months Additional Health Concerns Infection Onset Date Last Indicated RSV 08/20/2024 08/20/2024 Insurance PLAN Care Teams Financial Management Consultant Relationship Specialty Start Date End Date Frankie Ambriz MD [address] [phone] PCP - General Gastroenterology 11/25/16
--- OUTSIDE RECORDS SUMMARY | 2024-08-29 17:44 | XMS_ITS | Encounter Summary ---
Author Organization [employer] Address [address] [place] [phone] Care Team Providers Care Pc Tech Name Role Phone Beth Donnelly MD Primary Care Provide r Reason for Visit * Reason Comments Pre-visit Planning (Unable to reach for PVP screening, LVM) Encounter Details Date Type Department Care Team ([facility] st Contact Info) Description 08/24/2024 Patient Outreach [facility] [address] [place], [place] [phone] Beth Donnelly MD [address] [place], [place] [phone] Pre-visit Planning ((Unable to reach for PVP screening, LVM)) Social History Tobacco Use Types Packs/Day Years [...] AM EDT documented as of this encounter Progress Notes * Paula Eldridge - 08/24/2024 10:21 AM EDT CC Paula. Placed outbound call to patient to complete pre-visit planning. No answer at this time. Patient name and were not confirmed. CC left voicemail requesting return call. Direct contact information provided. documented in this encounter Plan of Treatment Upcoming Encounters Date Type Department Care Team (Late st Contact Info) Description 09/01/2024 2:45 PM EDT Office Visit [facility] [address] [place] [phone] Beth Donnelly MD [address] [place] [phone] 01/30/2025 3:00 PM EDT Office Visit [facility] ADULT DENTAL [address] [place] [phone] Alma Tellez documented as of this encounter Visit Diagnoses Not on filedocumented in this encounter Additional Health Concerns Assessment Noted Time PHQ-9 Depression Total Score: 0 01/21/20 23 3:27 PM EDT documented as of this encounter Care Teams Pc Tech Relationship Specialty Start Date End Date Beth Donnelly MD [address] [place] [phone] PCP - General Family Medicine 05/01/19 documented as of this encounter
--- OUTSIDE RECORDS SUMMARY | 2024-08-29 17:44 | XMS_ITS | Encounter Summary ---
Author Organization [facility] Address [address] [place] [phone] Care Team Providers Care Valve And Regulator Repairer Name Role Phone Beth Donnelly MD Primary Care Provide r Encounter Details Date Type Department Care Team (Latest Contact Info) Description 07/28/2021 Abstract [facility] Dental, Provider, DDS Social History [...] Care Team ( st Contact Info) Description 09/01/2024 2:45 PM EDT Office Visit [facility] [address] [place] [address] Beth Donnelly MD [address] [place] [address] 01/30/2025 3:00 PM EDT Office Visit [facility] ADULT [facility] [address] [place], [place] [phone] Alma Tellez documented as of this encounter Visit Diagnoses Not on filedocumented in this encounter Care Teams Valve And Regulator Repairer Relationship Specialty Start Date End Date Beth Donnelly MD [address] [place] [address] PCP - General Family Medicine 05/01/19 documented as of this encounter
--- OUTSIDE RECORDS SUMMARY | 2024-08-29 17:44 | XMS_ITS | Clinical Summary ---
Author Organization [employer] Address [address] [place] [address] [address], [place] [address] Care Team Providers Care Vocal Teacher Name Role Phone Beth Donnelly MD Primary Care Provide r Allergies Active Allergy Reactions Criticality Noted Date Comments Aspirin 02/18/2016 Other reaction(s): Bruising Ibuprofen 12/03/2023 Prednisone 11/23/2017 Other reaction(s): Rash, Rash Medications famotidine (Pepcid) 20 MG tabletIndicatio ns:Gastroesopha geal reflux disease, unspecified whether esophagitis present Take 1 tablet (20 mg) by mouth 2 times daily. 60 tablet 11 12/03/19 24 025 Active Additional Information Patient not taking.Reported on 07/25/2024 methocarbamol (Robaxin) 750 MG tabletIndicatio ns:Chronic midline low back pain with left-sided sciatica Take 1 tablet (750 mg) by mouth 4 times daily for 10 days. 40 tablet 12/03/19 24 Active cyclobenzaprine (Flexeril) 10 MG tablet Take 1 tablet (10 mg) by mouth 3 times daily for 20 days. 60 tablet 06/26/19 25 Active losartan-hydroC HLOROthiazide (Hyzaar) 50-12.5 MG tabletIndicatio ns:Uncontrolled hypertension Take 1 tablet by mouth Once per day. 30 tablet 11 08/25/19 25 026 Active Blood Pressure Monitoring (Blood Pressure Cuff) miscIndications :Uncontrolled hypertension 1 each Once daily. 1 each 08/25/19 25 Active Blood Pressure Monitoring (Blood Pressure Cuff) miscIndications :Uncontrolled hypertension 1 each Once daily. 1 each 08/25/19 025 Discontinued Hospital, Clinic, or Other Facility Administered Medication Ordered Dose Route Frequency Start Date End Date Status cloNIDine (Catapres) tablet 0.2 mgIndications:Uncontrolled hypertension 0.2 mg PO Once 08/24/2024 08/24/2024 Ended Active Problems Problem Noted Date Diagnosed Date Uncontrolled hypertension 08/24/2024 Assessment & Plan (08/24/2024 12:32 PM EDT): Patient diagnosed with hypertension today I will give at office clonidine 0.2 mg blood pressure was recheck and it went down to 159/100 I advised low-sodium diet and weight reduction I will start her on p.o. combination of losartan hydrochlorothiazide 50/12.5 mg daily I will also prescribe for her blood pressure monitor, I instructed her to log her BP and plan is if blood pressure is not at goal to increase the dose to 100/25 mg, she has coming appointment with me for a physical ED precautions were reviewed with patient, if he starts experiencing chest pain, shortness of breath, dizziness, palpitations, weakness or numbness to go to the emergency room immediately Pap smear for cervical cancer screening 08/25/19 Assessment & Plan (08/24/2024 12:31 PM EDT): Pap and pelvic exam done today patient will be contacted with results Chronic left shoulder pain 12/03/2023 Dermatitis of face 12/03/2023 GERD (gastroesophageal reflux disease) Assessment & Plan (12/03/2023 1:18 PM EDT): [...] Encounters Date Type Department Care Team Description 08/24/2024 10:15 AM EDT Procedure Visit [address] [address] Beth Donnelly MD Uncontrolled hypertension (Primary Dx); Pap smear for cervical cancer screening 08/24/2024 Orders Only [address] [address] Beth Donnelly MD 08/24/2024 Patient Outreach [address] [address] Beth Donnelly MD Pre-visit Planning ((Unable to reach for PVP screening, LVM)) 08/24/2024 Travel 07/25/2024 1:00 PM EST Office Visit [facility] [address] [place] [address] Alma Tellez Dental plaque (Primary Dx); Dental calculus; Encounter for dental examination 07/13/[address] [address] Beth Donnelly MD No Show 06/26/2024 11:20 AM EST Office Visit [facility] [address] [place] [phone] Name, MD Cameron Neck pain, chronic (Primary [...] Sign Reading Time Taken Comments Blood Pressure 159/100 08/24/2024 11:20 AM EDT Pulse 77 08/24/2024 10:27 AM EDT Temperature 35.4 ??C (95.7 ??F) 08/24/2024 10:27 AM E DT Respiratory Rate 16 08/24/2024 10:27 AM EDT Oxygen Saturation 98% 08/24/2024 10:27 AM EDT Inhaled Oxygen Concentration - - Weight 112 kg (246 lb) 08/24/2024 10:27 AM EDT Height 160 cm (5' 3 ) 08/24/2024 10:27 AM EDT Body Mass Index 43.58 08/24/2024 10:27 AM EDT Plan of Treatment Upcoming Encounters Date Type Department Care Team (Late st Contact Info) Description 09/01/2024 2:45 PM EDT Office Visit [facility] [address] [place] [address] Beth Donnelly MD [address] [place] [address] 01/30/2025 3:00 PM EDT Office Visit [facility] [address] [place] [address] Alma Tellez Health Maintenance Due Date Last Done Comments CT Colonography 1974 Colonoscopy 1974 Colorectal Cancer Screening 1974 FIT DNA/Cologuard 1974 FIT 1974 FOBT 1974 Sigmoidoscopy 1974 Family Planning (PISQ) 1989 Hepatitis C Screening 1992 DTaP/Tdap/Td Vaccines (1 - Tdap) 1993 Hepatitis B Vaccines (1 of 3 - 19+ 3-dose series) 1993 Pap Smear 08/20/1995 Depression Screening 01/21/2024 01/20/2023, 01/21/20 23 COVID-19 Vaccine ( season) 2024 04/28/2021, 07/26/2020, 07/05/2020 Dental X-Ray: Full Mouth 07/29/2024 07/28/2021, 01/30 Mammogram 07/30/2024 07/31/2023, 07/02, 07/25/2022, Additional history exists Pneumococcal Vaccine: 50+ Years (1 of 1 - PCV) 2024 Zoster Vaccines (1 of 2) 2024 SDOH Screening 11/22/2024 11/23/2023 Dental X-Ray: Bitewings 11/25/2024 11/25/19 24, 07/28/2021, 10/11/2018, Additional history exists Dental Oral Exam 01/23/2025 07/25/2024, , 07/28/2021, Additional history exists Dental Prophylaxis 01/23/2025 07/25/2024, 0 11/25/2023, 04/20/2022, Additional history exists Alcohol/Substance Use Screening 08/24/2025 08/24/2024 Tobacco Screening 08/24/2025 08/24/2024 Lipid Panel 01/31/2028 01/30/2023 Cervical Cancer Screening 08/24/2029 HPV/Cotest 08/24/2029 08/24/2024, 07/20/2019 RSV Patients and Patients Aged 60 years [...] Diagnosis Comments HPV DNA, LOW/HIGH RISK Routine 11:34 AM EDT COMPREHENSIVE PERIODONTAL EVALUATION - NEW OR ESTABLISHED [...] Routine 07/28/2021 12:00 AM EST ZZZ HISTORICAL HIV AB/AG Routine 06/24/2019 9:00 AM EST from Last 3 Months or Most Recently Relevant to Health Maintenance Results * HPV DNA, Low/High Risk (08/24/2024 11:34 AM EDT) HPV High Risk Negative Negative [facility] HPV Genotype 16 Negative Negative [facility] HPV Genotype 18 Negative Negative [facility] Comment:HPV testing performe d at [facility] (CLIA#[id number]), [address] [place] [phone].Testing for HPV was performed using the [employer]0system. The presence of HPV in the female [...] BLOOD ORDERABLES Final Result Performing Organization Address [facility] de Phone Number [facility] [address] [place] [phone] * Helicobacter pylori, Urea Breath Test (06/12/2024 4:02 PM EST) H. pylori Breath Test Negative Negative [facility] Comment:Antimicrobials, prot on pump inhibitors and bismuthpreparations are known to suppress H. pylori. Ingestingthese medications within two weeks prior to performing thebreath test may produce negative test results. A positiveresult is still clinically valid. 06/12/2024 4:02 PM EST 06/14/2024 2:45 PM EST us Generic External Data Provider LAB BLOOD ORDERAB LES Final Result Performing Organization Address [facility] de Phone Number [facility] [address] [place] [phone] * BI Mammogram Screening Tomosynthesis Bilateral (07/31/2023 9:12 AM EST) Anatomical Region Laterality Modality Breast Bilateral Mammography 07/31/2023 9:12 AM EST Narrative 08/12/2023 5:48 AM EDT ? [facility] [place] ? [address] ?[place] [address] ? Mammography Report ? Signed ? Patient: Monroe Hernandez,Aura A ? MR#: [id number] ? : 1975 ?Acct:[id number] ? Age/Sex: 47 / F ?ADM Date: /02/24 ? Loc: HO.MAMMO ? Attending Dr: Beth Gomez MD ? Ordering Physician: Beth Donnelly MD ?Results: ?? 1Negative ? Date of Service: 07/31/23 ?Follow Up: 1 Year From Orig ?? inal Mammogram ? Procedure(s): MM tomosynthesis screening BI ?? Accession Number(s): [id number] ? cc: Beth Donnelly MD ? EXAMINATION: [...] by Grace Valladares MD in OV> ? 08/12/2344 ? DD/ 1 ? TD/TT: ? Speech Lang Path Therapist: ? Procedure Note Donotuseinterpreter, Image - 08/12/2023 [place] [facility] [address] [place] [address] Mammography Report Signed Patient: Aura Conti MR#: [id number] : 1975Acct:[id number] Age/Sex: 47 / FADM Date: 07/31/23 Loc: HO.MAMMO Attending Dr: Beth Gomez MD Ordering Physician: Beth Donnelly [facility] 1Negative Date of Service: 07/31/23Follow Up: 1 Year From Orig inal Mammogram Procedure(s): MM tomosynthesis screening BI Accession Number(s): [id number] cc: Beth Donnelly MD EXAMINATION: MM SCREENING [...] signed by Grace Valladares MD in OV> 08/12/23 0544 DD/ 0912 TD/TT: Speech Lang Path Therapist: us Beth Gomez MD IMG BI PROCEDURES Fin al Result * (ABNORMAL) Lipid Panel, Standard (01/30/2023 9:26 AM EDT) Triglycerides 106 <150 mg/dL [facility] Comment:Desirable Triglyceri de: less than 150 mg/dLBorderline High Triglyceride 150-199 mg/dLHigh Triglyceride: 200-499 mg/dLVery High Triglyceride: greater than or equal to 5OO mg/dL Cholesterol 216(H) <200 mg/dL [facility] Comment:Desirable Cholestero l: less than 200 mg/dLBorderline High Cholesterol: 200-239 mg/dLHigh Cholesterol: greater than 239 mg/dL LDL Cholesterol Calculated 143(H) <100 mg/dL [facility] Comment:Desirable LDL: less than 100 mg/dLNear Optimal/Above Optimal LDL: 110- 129 mg/dLBorderline High LDL: 130-159 mg/dLHigh LDL: 160-189 mg/dLVery High LDL: greater than or equal to 190 mg/dL HDL Cholesterol 52 >40 mg/dL [facility] Comment:Desirable HDL: great er than 40 mg/dL Note: This HDL assay may give artificially low results in patients with liver disease. Blood Venous blood specimen / Unknown 01/30/2023 9:26 AM EDT 01/30/2023 9:26 AM EDT us Beth Gomez MD LAB BLOOD ORDERABLES Final Result [facility] [address] [place] [phone] * HIV AB/AG (06/24/2019 9:00 AM EST) [...] detection of this assay. ?? The [employer] Entry Level Drafter HIV Ag/Ab Combo assay result and supplemental assay results should be interpreted in conjunction with the patient's clinical presentation, history and other laboratory results. ??If the results are inconsistent with clinical evidence, additional testing is suggested to confirm the result. 06/24/2019 9:00 AM EST us Beth Gomez MD HISTORICAL/NON ORDERA BLE LABS Final Result [facility] [place] [address], from Last 3 Months or Most Recently Relevant to Health Maintenance Insurance [address] [address] [facility]ID[facility] Care Teams Vocal Teacher Relationship Specialty Start Date End Date Beth Donnelly MD [address] [place] [phone] PCP - General Family Medicine 05/01/19
--- OUTSIDE RECORDS SUMMARY | 2024-08-29 17:44 | XMS_ITS | Encounter Summary ---
Author Organization [employer] Address [address] [facility] [address] [address] Care Team Providers Care Product Development Worker Name Role Phone Beth Donnelly MD Primary Care Provide r Encounter Details Date Type Department Care Team (Latest Contact Info) Description 08/24/2024 10:15 AM EDT Procedure Visit [facility] [address] [place], [place] [phone] Beth Donnelly MD [address] [place], [place] [phone] Uncontrolled hypertension (Primary Dx); Pap smear for cervical cancer screening Social History Tobacco Use Types Packs/Day Years [...] Mass Index 43.58 08/24/2024 10:27 AM EDT documented in this encounter Progress Notes * Beth Gomez MD - 08/24/2024 10:15 AM EDT SUBJECTIVE: Aura Childress is a 49 y.o. year old female who presents for Pap . 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 and she has been having severe headaches, every time she checks her blood pressure with the nurse is high, she also tells me she has been having order appointments with other providers and all the time the blood pressure is high, today she reports she has about headache her blood pressure was 200/107, she currently denies chest pain, shortness of breath, dizziness, palpitation, weakness or numbness Social History Social History Narrative Not on file Patient Active Problem List Diagnosis Spasm of cervical paraspinous muscle Sialoadenitis Edema of face Chronic low back pain Ankle pain Acute back pain with sciatica Angioedema Mixed stress and urge urinary incontinence Chronic fatigue Polyarthralgia Loud snoring Positive JIM (antinuclear antibody) Class 3 severe obesity due to excess calories without serious comorbidity in adult (CMS/HCC) Fibromyalgia Elevated blood pressure reading Chronic left shoulder pain Dermatitis of face GERD (gastroesophageal reflux disease) Heartburn Uncontrolled hypertension Pap smear for cervical cancer screening No family history on file. Review of Systems Constitutional: Negative. HENT: Negative. Respiratory: Negative. Cardiovascular: Negative. Genitourinary: Negative. Neurological: Positive for headaches. OBJECTIVE: Vitals: 08/24/24 1027 08/24/24 1120 BP: (!) 200/107 (!) 159/100 BP Location: Right arm Right arm Patient Position: Sitting Sitting BP Cuff Size: Large adult Large adult Pulse: 77 Resp: 16 Temp: 95.7 ??F (35.4 ??C) TempSrc: Temporal SpO2: 98% Weight: 246 lb (112 kg) Height: 5' 3 (1.6 m) Physical Exam Constitutional: Appearance: Normal appearance. Cardiovascular: Rate and Rhythm: Normal rate and regular rhythm. Pulmonary: Effort: Pulmonary effort is normal. Breath sounds: Normal breath sounds. Abdominal: General: Abdomen is flat. Palpations: Abdomen is soft. Musculoskeletal: Right lower leg: No edema. Left lower leg: No edema. Neurological: Mental Status: She is alert. Follow Up: No follow-ups on file. Current Outpatient Medications on File Prior to Visit Medication Sig Dispense Refill cyclobenzaprine (Flexeril) 10 [...] daily for 10 days. 40tablet 0 No current facility-administered medications on file prior to visit. Problem List Items Addressed This Visit Uncontrolled hypertension - Primary Patient diagnosed with hypertension today I will give at office clonidine 0.2 mg blood pressure wasrecheck and it went down to 159/100 I advised low-sodium diet and weight reduction I will start her on p.o. combination of losartan hydrochlorothiazide 50/12.5 mg daily I will also prescribe for her blood pressure monitor, I instructed her to log her BP and come back for nurse visit in 2 weeks plan is if blood pressure is not at goal to increase the dose to 100/25 mg ED precautions were reviewed with patient, if he starts experiencing chest pain, shortness of breath, dizziness, palpitations, weakness or numbness to go to the emergency room immediately Relevant Medications cloNIDine (Catapres) tablet 0.2 mg (Completed) losartan-hydroCHLOROthiazide (Hyzaar) 50-12.5 MG tablet Blood Pressure Monitoring (Blood Pressure Cuff) misc Pap smear for cervical cancer screening Pap and pelvic exam done today patient will be contacted with results Relevant Orders Pap Smear documented in this encounter Miscellaneous Notes * Assessment & Plan Note - Beth Gomez MD - 08/24/2024 12:31 PM EDT Associated Problem(s): Pap smear for cervical cancer screening Pap and pelvic exam done today patient will be contacted with results * Assessment & Plan Note - Beth Gomez MD - 08/24/2024 12:30 PM EDT Associated Problem(s): Uncontrolled hypertension Patient diagnosed with hypertension today I will give at office clonidine 0.2 mg blood pressure wasrecheck and it went down to 159/100 I [...] to go to the emergency room immediately documented in this encounter Plan of Treatment Upcoming Encounters Date Type Department Care Team (Late st Contact Info) Description 09/01/2024 2:45 PM EDT Office Visit [facility] [address] [place] [address] Beth Donnelly MD [address] [place] [address] 01/30/2025 3:00 PM EDT Office Visit [facility] [address] [place] [phone] Alma Tellez Scheduled Orders Name Type Priority Associated Diagnoses Orde r Schedule Pap Smear Pathology and Cytology Routine Pap smear for cervical cancer screening Ordered: 08/24/2024 documented as of this encounter Visit Diagnoses Diagnosis Uncontrolled hypertension- Primary Pap smear for cervical cancer screening Screening for malignant neoplasm of the cervix documented in this encounter Administered Medications Inactive Administered Medications - up to 3 most recent administrations Medication Order MAR Action Action Date Dose Rate Site cloNIDine (Catapres) tablet 0.2 mg 0.2 mg, Oral, Once, On Thi 08/24/24 at 1030, For 1 doseIndications:Uncontrolled hypertension Given 08/24/2024 10:30 AM EDT 0.2 mg documented in this encounter Additional Health Concerns Assessment Noted Time PHQ-9 Depression Total Score: 0 01/21/20 23 3:27 PM EDT documented as of this encounter Care Teams Product Development Worker Relationship Specialty Start Date End Date Beth Donnelly MD [address] [place] [phone] PCP - General Family Medicine 05/01/19 documented as of this encounter
--- OUTSIDE RECORDS SUMMARY | 2024-08-29 17:45 | XMS_ITS | Encounter Summary ---
Author Organization [facility] Address [address] [place] [phone] Care Team Providers Care Teacher Emotionally Impaired Name Role Phone Beth Donnelly MD Primary Care Provide r Encounter Details Date Type Department Care Team (Latest Contact Info) Description 10/11/2018 Abstract [facility] Dental, Provider, DDS Social History Tobacco [...] Description 09/01/2024 2:45 PM EDT Office Visit [facility] [address] [place] [address] Beth Donnelly MD [address] [place] [address] 01/30/2025 3:00 PM EDT Office Visit [facility] [address] [place], [place] [phone] Alma Tellez documented as of this encounter Visit Diagnoses Not on filedocumented in this encounter Care Teams Teacher Emotionally Impaired Relationship Specialty Start Date End Date Beth Donnelly MD [address] [place], [place] [phone] PCP - General Family Medicine 05/01/19 documented as of this encounter
--- OUTSIDE RECORDS SUMMARY | 2024-08-29 17:45 | XMS_ITS | Encounter Summary ---
Author Organization [facility] [facility] Address [address] [place] [address] Care Team Providers Care Dough Braker Name Role Phone Beth Donnelly MD Primary Care Provide r Encounter Details Date Type Department Care Team (Late st Contact Info) Description 04/22/[address] [facility] [address] [place] [address] Dental, Provider, DDS Social History Tobacco Use [...] Description 09/01/2024 2:45 PM EDT Office Visit [facility] [address] [place] [address] Beth Donnelly MD [address] [place] [address] 01/30/2025 3:00 PM EDT Office Visit [facility] [address] [place] [address] Alma Tellez documented as of this encounter [...] on filedocumented in this encounter Care Teams Dough Braker Relationship Specialty Start Date End Date Beth Donnelly MD [address] [place] [phone] PCP - General Family Medicine 05/01/19 documented as of this encounter
== END 2024-08-29 14:54 | disposition home or self-care (01) ==
LOC: HO.MAMMO 14:53
PROVIDERS: PCP Internal Medicine; Visit Provider Internal Medicine
DX: Z12.31 Encounter for screening mammogram for malignant neoplasm of breast (principal)
CPT/HCPCS: 77063; 77067

== ENCOUNTER → 2024-08-29 15:15 | Outpatient (BNV) | payer MEDICAID, SELFPAY | PROVIDERS: PCP Internal Medicine; Visit Provider Internal Medicine | DX: Z12.31 Encounter for screening mammogram for malignant neoplasm of breast (principal) | CPT/HCPCS: 77063; 77067 ==

== ENCOUNTER 2024-09-05 07:31 | Outpatient (REF) | payer MEDICAID, SELFPAY ==
--- NOTE | ~2024-09-05 | FL_ITS ---
EXAMINATION: XR BARIUM SWALLOW CLINICAL INFORMATION: Trachea COMPARISON: None available. TECHNIQUE: Routine upright barium swallow was performed following oral administration of thick barium and barium coated saltine crackers. Subsequently thin barium was administered in prone lying position. FINDINGS: Following oral administration of thick barium and barium coated saltine crackers or solid food there is normal oral mastication with solid food. There is normal perfusion bolus from the oral cavity through the pharynx, esophagus into stomach without any evidence of obstruction, narrowing or stricture. No extrinsic compression or mass effect seen. The mucosal esophagus is normal. On placing patient in prone position and oral administration of thin barium there is widely patent and distended esophagus without any intrinsic or extrinsic compression. There is no gastroesophageal reflux or hiatal hernia seen in supine and prone position. FLUOROSCOPY TIME: 2 minutes 34 seconds DOSE AREA PRODUCT: 210.6 uGy-m2 (microgray-meter squared) FL/FL barium swallow IMPRESSION: Unremarkable barium swallow exam Electronically signed by: Gera Brown MD 09/05/2024 10:31 AM EDT
--- OUTSIDE RECORDS SUMMARY | 2024-09-05 07:34 | XMS_ITS | Encounter Summary ---
Author Organization [employer] [facility] Address [address] [place] [address] Care Team Providers Care Motion Picture Equipment Supervisor Name Role Phone Beth Donnelly MD Primary Care Provide r Encounter Details Date Type Department Care Team (Latest Contact Info) Description 07/28/2021 Abstract [facility] Dental, Provider, DDS Social History Tobacco [...] Care Team (Late st Contact Info) Description 01/30/2025 3:00 PM EDT Office Visit [facility] [address] [place] [address] Alma Tellez documented as of this encounter Visit Diagnoses Not on filedocumented in this encounter Care Teams Motion Picture Equipment Supervisor Relationship Specialty Start Date End Date Beth Donnelly MD [address] [place] [address] PCP - General Family Medicine 05/01/19 documented as of this encounter
--- OUTSIDE RECORDS SUMMARY | 2024-09-05 07:34 | XMS_ITS | Clinical Summary ---
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 famotidine (Pepcid) 20 MG tabletIndicatio ns:Gastroesopha geal [...] Once daily. 1 each 08/25/19 25 Active venlafaxine XR (Effexor XR) 37.5 MG 24 hr capsuleIndicati ons:Anxiety with depression Take 1 capsule (37.5 mg) by mouth Once per day. Do not crush or chew. 30 capsule 1 09/02/19 25 026 Active Blood Pressure Monitoring (Blood Pressure Cuff) miscIndications :Uncontrolled hypertension 1 each Once daily. 1 each 08/25/19 25 025 Discontinued Hospital, Clinic, or Other Facility Administered Medication Ordered Dose Route Frequency Start Date End Date Status cloNIDine (Catapres) tablet 0.2 mgIndications:Uncontrolled hypertension 0.2 mg PO Once 08/24/2024 08/24/2024 Ended Active Problems Problem Noted Date Diagnosed Date Palpitations 09/01/2024 Assessment & Plan (09/01/2024 4:41 PM EDT): Patient referred to cardiology, TSH will be checked with labs SOB (shortness of breath) 09/01/2024 Assessment & Plan (09/01/2024 4:41 PM EDT): Patient referred to cardiology Primary hypertension 09/01/2024 Assessment & Plan (09/01/2024 4:41 PM EDT): Blood pressure is now under control I advised to continue with mixed pill of losartan with hydrochlorothiazide, I advised low-sodium diet I will refer patient to cardiology Anxiety with depression 09/01/2024 Assessment & Plan (09/01/2024 4:41 PM EDT): Most likely grievingLEE ANN was called today Patient is also having vasomotor symptoms from menopause, I will prescribe her patient venlafaxine to treat both anxiety depression and menopausal symptoms Class 3 severe obesity due t o excess calories with serious comorbidity and body mass index (BMI) of 40.0 to 44.9 in adult 09/01/2024 Tuberculosis screening 09/01/2024 Encounter for preventive care 09/01/2024 Assessment & Plan (09/01/2024 4:40 PM EDT): See HPI Bereavement 09/01/2024 Depression, unspecified 09/01/2024 Assessment & Plan (09/04/2024 9:32 AM EDT): During IBH Consult Aura presenting with depressed mood, Tearful, crying spells , hopelessness, irritable mood, loss of interests/pleasure , sense of isolation/loneliness , isolating, change in appetite or weight overeating, changes in sleep difficulty falling asleep, psychomotor retardation, fatigue/loss of energy, worthlessness, inappropriate/excessive guilt , difficulty concentrating, indecisiveness; for a period of 0-6 mo, for most or all symptoms in the context of . Aura reported the loss of her sister in July 05 this year was devastated and difficult to manage. Pt is coping by keeping herself busy at work and spending time with her family. Pt will follow-up with clinician for grief counseling. Declined OP external referral for now. Pt will continue to embrace her emotions while navigating through her healing process. Uncontrolled hypertension 08/24/2024 Assessment & Plan (08/24/2024 [...] back pain 04/10/2015 Ankle pain 04/10/2015 Encounters * This document contains information received from the source organization and may not represent a complete record from that organization. Date Type Department Care Team Description 09/01/2024 2:45 PM EDT Office Visit [facility] [address] [place] [phone] Beth Donnelly MD Palpitations (Primary Dx); SOB (shortness of breath); Primary hypertension; Chronic left shoulder pain; Anxiety with depression; Class 3 severe obesity due to excess calories with serious comorbidity and body mass index (BMI) of 40.0 to 44.9 in adult ([facility]); Tuberculosis screening; Encounter for preventive care 09/01/2024 Travel 08/30/[address] [address] Nilda Pierre, RN Results 08/24/2024 10:15 AM EDT Procedure Visit [address] [address] Beth Donnelly MD Uncontrolled hypertension (Primary Dx); Pap smear for cervical cancer screening 08/24/2024 Orders Only [address] [address] Beth Donnelly MD 08/24/2024 Patient Outreach [address] [address] Beth Donnelly MD Pre-visit Planning ((Unable to reach for PVP screening, LVM)) 08/24/2024 Travel 07/25/2024 1:00 PM EST Office Visit [facility] [address] [place] [phone] GeoffAlma Dental plaque (Primary Dx); Dental calculus; Encounter for dental examination 07/13/[address] [address] Beth Donnelly MD No Show 06/26/2024 11:20 AM EST Office Visit [facility] [address] [place] [phone] Cameron Monaco MD Neck pain, chronic (Primary Dx); Pain of [...] Answer Date Recorded Patient Health Questionnaire-9 Score 12 09/04/2024 Patient Health Questionnaire-9 Score 12 09/04/2024 Last PHQ-9: Questionnaire Data Not on file 0 09/04/2024 Housing Stability Answer Date Recorded What is [...] Answer Date Recorded Patient Health Questionnaire-2 Score 4 09/04/2024 Internet Access Answer Date Recorded Internet Access [...] Sign Reading Time Taken Comments Blood Pressure 124/79 09/01/2024 2:44 PM EDT Pulse 88 09/01/2024 2:44 PM EDT Temperature 36.2 ??C (97.2 ??F) 09/01/2024 2:44 PM ED T Respiratory Rate 15 09/01/2024 2:44 PM EDT Oxygen Saturation 96% 09/01/2024 2:44 PM EDT Inhaled Oxygen Concentration - - Weight 111 kg (245 lb 9.6 oz) 09/01/2024 2:44 PM EDT Height 160 cm (5' 3 ) 09/01/2024 2:44 PM EDT Body Mass Index 43.51 09/01/2024 2:44 PM EDT Plan of Treatment Upcoming Encounters Date Type Department Care Team (Late st Contact Info) Description 01/30/2025 3:00 PM EDT Office Visit [facility] [address] [place] [address] Alma Tellez Health Maintenance Due Date Last Done Comments CT Colonography 1975 Colonoscopy 1974 Colorectal Cancer Screening 1974 FIT DNA/Cologuard 1974 FIT 1974 FOBT 1974 Sigmoidoscopy 1974 Family Planning (PISQ) 1989 Hepatitis C Screening 1992 DTaP/Tdap/Td Vaccines (1 - Tdap) 1993 Hepatitis B Vaccines (1 of 3 - 19+ 3-dose series) 1993 COVID-19 Vaccine ( - season) 2024 04/28/2021, 07/26/2020, 07/05/2020 Dental X-Ray: Full Mouth 07/29/2024 07/28/2021, 01/30 Pneumococcal Vaccine: 50+ Years (1 of 1 - PCV) 2024 Zoster Vaccines (1 of 2) 2024 SDOH Screening 11/22/2024 11/23/2023 Dental X-Ray: Bitewings 11/25/2024 11/25/19 24, 07/28/2021, 10/11/2018, Additional history exists Dental Oral Exam 01/23/2025 07/25/2024, , 07/28/2021, Additional history exists Dental Prophylaxis 01/23/2025 07/25/2024, 0 11/25/2023, 04/20/2022, Additional history exists Depression Monitoring (PHQ-9) 03/06/2025 09/04/2024, 09/04/2024 Alcohol/Substance Use Screening 08/24/2025 08/24/2024 Mammogram 08/29/2025 08/29/2024, 03/0 07/2023, 07/25/2022, Additional history exists Tobacco Screening 09/01/2025 09/01/2024 Depression Screening 09/04/2025 09/04/2024, 09/05/19 Lipid Panel 01/31/2028 01/30/2023 Cervical Cancer Screening 08/24/2029 HPV/Cotest 08/24/2029 08/24/2024, 07/20/2019 Pap Smear 08/24/2029 08/24/2024 RSV Patients and Patients Aged 60 years [...] Procedure Name Priority Date/Time Associated Diagnosis Comments BI MAMMOGRAM SCREENING TOMOSYNTHESIS BILATERAL Routine 08/29/2024 2:56 PM EDT PAP SMEAR Routine 08/24/2024 11:34 AM EDT Pap smear for cervical cancer screening HPV DNA, LOW/HIGH RISK Routine 11:34 AM [...] RADIOGRAPHIC IMAGES Routine 11/25/2023 3:00 PM EDT LIPID PANEL, STANDARD Routine 01/30/2023 9:26 AM EDT Chronic fatigue INTRAORAL - COMPLETE SERIES OF RADIOGRAPHIC IMAGES Routine 07/28/2021 12:00 AM EST ZZZ HISTORICAL HIV AB/AG Routine 06/24/2019 9:00 AM EST from Last 3 Months or Most Recently Relevant to Health Maintenance Results * BI Mammogram Screening Tomosynthesis Bilateral (08/29/2024 2:56 PM EDT) Anatomical Region Laterality Modality Breast Bilateral Mammography 08/29/2024 2:56 PM EDT Narrative 09/03/2024 8:11 PM EDT ? [facility] ? [address] ?[place] [address] ?[phone] ? Mammography Report ? Signed ? Patient: Monroe,Aura A ?MR#: [id number] ?? [id number] ? : 1975 ?Acct:[id number] ? Age/Sex: 49 / F ?ADM Date: //25 ? Loc: HO.MAMMO ? Attending Dr: Beth Gomez MD ? Ordering Physician: Beth Donnelly MD ?Results: ?? 1Negative ? Date of Service: //25 ?Follow Up: 1 Year From Orig ?? inal Mammogram ? Procedure(s): MM tomosynthesis screening BI ?? Accession Number(s): [id number] ? cc: Beth Donnelly MD ? EXAMINATION: ?? MM SCREENING DIGITAL BREAST TOMOSYNTHESIS, BILATERAL ? CLINICAL INFORMATION: ? Screening. Asymptomatic. ? COMPARISON: ?? Mammography: Comparison is made with available priors ? TECHNIQUE: ?? Digital breast mammography with tomosynthesis is performed in both the ?? craniocaudal and mediolateral oblique views along with computer-aided ?? detection (CAD). ? FINDINGS: ?? There are scattered areas of fibroglandular density (ACR BI-RADS breast ?? composition Category b). ? There are no significant masses, abnormal [...] due date for their next mammogram. ? Electronically signed by: ??Bibi Centeno DO ??09/03/2024 08:08 PM EDT ? Dictated By: ?Bibi Centeno DO ? Signed By: ?<Electronically signed by Bibi Centeno, DO in OV> ? 09/03/24 2008 ? DD/ 1456 ? TD/TT: 08/29/24 1518 ? Box Builder: ? Procedure Note Nilo Rudolph - 09/03/2024 [facility] [address] [place] [address] Dr. Diego, JUAN [address] Mammography Report Signed Patient: MonroeShaAura [facility]#: [id number] : 1975Acct:[id number] Age/Sex: 49 / FADM Date: 08/29/24 Loc: HO.MAMMO Attending Dr: Beth Gomez MD Ordering Physician: Beth Donnelly MDResults: 1Negative Date of Service: 08/29/24Follow Up: 1 Year From Orig ina Mammogram Procedure(s): MM tomosynthesis screening BI Accession Number(s): [id number] cc: Beth Donnelly MD EXAMINATION: MM SCREENING DIGITAL BREAST TOMOSYNTHESIS, BILATERAL CLINICAL INFORMATION: Screening. Asymptomatic. COMPARISON: Mammography: Comparison is made with available priors TECHNIQUE: Digital breast mammography with tomosynthesis is performed in both the craniocaudal and mediolateral oblique views along with computer-aided detection (CAD). FINDINGS: There are scattered areas of fibroglandular density (ACR BI-RADS breast composition Category b). There are no significant masses, abnormal calcifications, [...] target due date for their next mammogram. Electronically signed by: Bibi Centeno DO 09/03/2024 08:08 PM EDT Dictated By: Bibi Centeno DO Signed By: <Electronically signed by Bibi Centeno DO in OV> 09/03/242007 DD/ 1456 TD/TT: 08/29/24 1518 Box Builder: us Beth Gomez MD IMG BI PROCEDURES Rhett elliott Result - Final * HPV DNA, Low/High Risk (08/24/2024 11:34 AM EDT) HPV High Risk Negative Negative [facility] HPV Genotype 16 Negative Negative [facility] HPV Genotype 18 Negative Negative [facility] Comment:HPV testing performe d at [facility] (CLIA#[id number]), [address] [place] [phone].Testing for HPV was performed using the Tai [...] BLOOD ORDERABLES Final Result Performing Organization Address City/State/[facility] Co de Phone Number [facility] [address] [place] [phone] * Pap Smear (08/24/2024 11:34 AM EDT) Swab 08/24/2024 11:3 4 AM EDT 08/25/2024 6:50 AM EDT Gabriele [facility] - 08/30/2024 9:34 AM EDT ----- ------- Name: Aura Childress ? Age/Sex: 49/F ? : 1975 Unit#: [id number] ?? Attend Dr: Beth Donnelly MD ?Re08/24/24 ?Status: DEP REF ? Location: HO.LNP ?Disch: ? ----- ------- SPEC : [id number] ? RECD: 08/25/24 ? STATUS: ??SOUT ? REQ NUM: [id number] ? KAREN: 08/24/24-1134 ? SUBM DR: Beth Donnelly MD ? ENTERED: ??08/25/24 ?SP TYPE: Pap Smr ?OTHR DR: ? ORDERED: ??Pap Smear ? Interpretation ?? Satisfactory for evaluation. ?? Negative for intraepithelial lesion or malignancy. ? HPV High Risk: ??Negative ? HPV Genotyping 16: ??Negative ?? HPV Genotyping 18: ??Negative ?Clinical Information LMP:UNKOWN Previous PAP test:NORMAL Other surgery: Other history: ----- ------- Signed (signature on file) AUREA Yoder ([facility]) 08/30/24 0934 ? ----- ------- ? END OF REPORT ? us Beth Gomez MD LAB CYTOLOGY ORDERABL ES Final Result Performing Organization Address [facility] Co de Phone Number [facility] [address] [place] [phone] * Helicobacter pylori, Urea Breath Test (06/12/2024 4:02 PM EST) Pathologist [facility] H. pylori Breath Test Negative Negative [facility] [...] ORDERAB LES Final Result Performing Organization Address [facility]/ZIP Co de Phone Number [facility] [address] [place] [address] [phone] * (ABNORMAL) Lipid Panel, Standard (01/30/2023 9:26 AM EDT) Triglycerides 106 <150 mg/dL [facility] Comment:Desirable Triglyceri de: less than 150 [...] 190 mg/dL HDL Cholesterol 52 >40 mg/dL [facility] Comment:Desirable HDL: great er than 40 mg/dL Note: This HDL assay may give artificially low results in patients with liver disease. Blood Venous blood specimen / Unknown 01/30/2023 9:26 AM EDT 01/30/2023 9:26 AM EDT Beth Gomez MD LAB BLOOD ORDERABLES Final Result [facility] [address] [place] [address] [phone] * HIV AB/AG (06/24/2019 9:00 AM [...] detection of this assay. ?? The [employer] HIV Ag/Ab Combo assay result and supplemental assay results should be interpreted in conjunction with the patient's clinical presentation, history and other laboratory results. ??If the results are inconsistent with clinical evidence, additional testing is suggested to confirm the result. 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
--- OUTSIDE RECORDS SUMMARY | 2024-09-05 07:34 | XMS_ITS | Encounter Summary ---
Author Organization [employer] Address [address] [place] [id number] Care Team Providers Care Software Release Engineer Name Role Phone Beth Donnelly MD Primary Care Provide r Reason for Referral * Consultation (Routine) - Authorized Specialty Diagnoses / Procedures Referred By Contac t Referred To Contact Nutrition Diagnoses Class 3 severe obesity due to excess calories with serious comorbidity and body mass index (BMI) of 40.0 to 44.9 in adult (CMS/[facility]) Beth Donnelly MD [address] [place] [address] Phone: tel: fax: Referral ID Status Reason Start Date Expiration Date Visits Requested Visits Authorized [id number] Authorized Specialty Services Required 09/01/2024 09/01/2025 1 1 * Consultation (Routine) - Pending Review Specialty Diagnoses / Procedures Referred By Contac t Referred To Contact Orthopaedic Surgery Diagnoses Chronic left shoulder pain Beth Donnelly MD [address] [place] [address] Phone: tel: fax: Referral ID Status Reason Start Date Expiration Date Visits Requested Visits Authorized [id number] Pending Review Specialty Services Required 09/01/2024 09/01/2025 1 1 * Consultation (Routine) - Authorized Specialty Diagnoses / Procedures Referred By Janee t Referred To Contact Cardiology Diagnoses Palpitations SOB (shortness of breath) Primary hypertension Beth Donnelly MD [address] [place] [address] Phone: tel: fax: [facility] Referral ID Status Reason Start Date Expiration Date Visits Requested Visits Authorized [id number] Authorized Specialty Services Required 09/01/2024 09/01/2025 1 1 Reason for Visit * Reason Comments Annual Exam Encounter Details Date Type Department Care Team (Late st Contact Info) Description 09/01/2024 2:45 PM EDT Office Visit [facility] [address] [place] [address] Beth Donnelly MD [address] [place] [phone] Palpitations (Primary Dx); SOB (shortness of breath); Primary hypertension; Chronic left shoulder pain; Anxiety with depression; Class 3 severe obesity due to excess calories with serious comorbidity and body mass index (BMI) of 40.0 to 44.9 in adult (CMS/HCC); Tuberculosis screening; Encounter for preventive care Social History Tobacco Use Types Packs/Day Years [...] Mass Index 43.51 09/01/2024 2:44 PM EDT documented in this encounter Progress Notes * Beth Gomez MD - 09/01/2024 2:45 PM EDT SUBJECTIVE: Aura Childress is a 49 y.o. year old female who presents for Physical . 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 Diet:regular Exercise:sedentary LMP:05/2024 (perimenopause) Pap Smear:up to date Colonoscopy:upcoming appointment 09/07/24 Hospitalizations/Surgeries: none Eye Care:Patient will set up her appointment Dental Care:up to date PMHx:see below Immunizations: COVID Influenza - DUE ? - Acute Concerns: Palpitation with SOB with exertion Anxiety, depression Left shoulder pain persistent, patient already tried physical therapy and local injections Social History Social History Narrative Not on file Patient Active Problem List Diagnosis Spasm of cervical paraspinous muscle Sialoadenitis Edema of face Chronic low back pain Ankle pain Acute back pain with sciatica Angioedema Mixed stress and urge urinary incontinence Chronic fatigue Polyarthralgia Loud snoring Positive JIM (antinuclear antibody) Class 3 severe obesity due to excess calories without serious comorbidity in adult ([facility]) Fibromyalgia Elevated blood pressure reading Chronic left shoulder pain Dermatitis of face GERD (gastroesophageal reflux disease) Heartburn Uncontrolled hypertension Pap smear for cervical cancer screening Palpitations SOB (shortness of breath) Primary hypertension Anxiety with depression Class 3 severe obesity due to excess calories with serious comorbidity and body mass index (BMI) of40.0 to 44.9 in adult ([facility]) Tuberculosis screening Encounter for preventive care No family history on file. Review of Systems Constitutional: Negative. HENT: Negative. Respiratory: Positive for shortness of breath. Negative for apnea, cough, choking, chest tightness,wheezing and stridor. Cardiovascular: Positive for palpitations. Negative for chest pain and leg swelling. Musculoskeletal: Positive for arthralgias and myalgias. OBJECTIVE: Vitals: 09/01/24 1444 BP: 124/79 BP Location: Right arm Patient Position: Sitting BP Cuff Size: Adult Pulse: 88 Resp: 15 Temp: 97.2 ??F (36.2 ??C) TempSrc: Temporal SpO2: 96% Weight: 245 lb 9.6 oz (111 kg) Height: 5' 3 (1.6 m) Physical Exam Constitutional: Appearance: Normal appearance. Cardiovascular: Rate and Rhythm: Normal rate and regular rhythm. Pulmonary: Effort: Pulmonary effort is normal. Breath sounds: Normal breath sounds. Abdominal: General: Abdomen is flat. Palpations: Abdomen is soft. Musculoskeletal: Right lower leg: No edema. Left lower leg: No edema. Neurological: Mental Status: She is alert. Follow Up: Follow up for 6 weeks televisit anxiety with depression . Current Outpatient Medications on File Prior to Visit Medication Sig Dispense Refill Blood Pressure Monitoring (Blood Pressure Cuff) misc 1 each Once daily. 1 each 0 cyclobenzaprine (Flexeril) 10 MG tablet Take 1 tablet (10 mg) by mouth 3 times daily for 20 days. 60 tablet 0 famotidine (Pepcid) 20 MG tablet Take 1 tablet (20 mg) by mouth 2 times daily. (Patient not taking:Reported on 07/25/2024) 60 tablet 11 losartan-hydroCHLOROthiazide (Hyzaar) 50-12.5 MG tablet Take 1 tablet by mouth Once per day. 30 tablet 11 methocarbamol (Robaxin) 750 MG tablet Take 1 tablet (750 mg) by mouth 4 times daily for 10 days. 40tablet 0 No current facility-administered medications on file prior to visit. Problem List Items Addressed This Visit Palpitations - Primary Patient referred to cardiology, TSH will be checked with labs Relevant Orders Referral to Cardiology TSH W/Reflex to FT4 SOB (shortness of breath) Patient referred to cardiology Relevant Orders Referral to Cardiology Primary hypertension Blood pressure is now under control I advised to continue with mixed pill of losartan with hydrochlorothiazide, I advised low-sodium diet I will refer patient to cardiology Relevant Orders Referral to Cardiology Comprehensive Metabolic Panel CBC auto differential Lipid Panel, Standard Chronic left shoulder pain Relevant Orders Referral to Orthopaedic Surgery Anxiety with depression Most likely grieving, [facility] was called today Patient is also having vasomotor symptoms from menopause, I will prescribe her patient venlafaxine to treat both anxiety depression and menopausal symptoms Relevant Medications venlafaxine XR (Effexor XR) 37.5 MG 24 hr capsule Class 3 severe obesity due to excess calories with serious comorbidity and body mass index (BMI) of40.0 to 44.9 in adult ([facility]) Relevant Orders Referral to Nutrition Services, Internal Tuberculosis screening Relevant Orders T-SPOT??.TB Encounter for preventive care See HPI documented in this encounter Miscellaneous Notes * Assessment & Plan Note - Beth Gomez MD - 09/01/2024 4:41 PM EDT Associated Problem(s): SOB (shortness of breath) Patient referred to cardiology * Assessment & Plan Note - Beth Gomez MD - 09/01/2024 4:41 PM EDT Associated Problem(s): Palpitations Patient referred to cardiology, TSH will be checked with labs * Assessment & Plan Note - Beth Gomez MD - 09/01/2024 4:41 PM EDT Associated Problem(s): Primary hypertension Blood pressure is now under control I advised to continue with mixed pill of losartan with hydrochlorothiazide, I advised low-sodium diet I will refer patient to cardiology * Assessment & Plan Note - Beth Gomez MD - 09/01/2024 4:41 PM EDT Associated Problem(s): Anxiety with depression Most likely LEE ANN landeros was called today Patient is also having vasomotor symptoms from menopause, I will prescribe her patient venlafaxine to treat both anxiety depression and menopausal symptoms * Assessment & Plan Note - Beth Gomez MD - 09/01/2024 4:40 PM EDT Associated Problem(s): Encounter for preventive care See HPI documented in this encounter Plan of Treatment Upcoming Encounters Date Type Department Care Team (Late st Contact Info) Description 01/30/2025 3:00 PM EDT Office Visit [facility] [address] [place] [address] Alma Tellez Scheduled Orders Name Type Priority Associated Diagnoses Orde r Schedule Comprehensive Metabolic Panel Lab Routine Primary hypertension Expected: 09/01/2024 (Approximate), Expires: 09/01/2025 CBC auto differential Lab Routine Primary hypertension Expected: 09/01/2024 (Approximate), Expires: 09/01/2025 Lipid Panel, Standard Lab Routine Primary hypertension Expected: 09/01/2024 (Approximate), Expires: 09/01/2025 TSH W/Reflex to FT4 Lab Routine Palpitations Expected: 09/01/2024 (Approximate), Expires: 09/01/2025 T-SPOT??.TB Lab Routine Tuberculosis screening Expected: 09/01/2024 (Approximate), Expires: 09/01/2025 Scheduled Referrals Name Type Priority Associated Diagnoses Orde r Schedule Referral to Cardiology Outpatient Referral Routine Palpitations SOB (shortness of breath) Primary hypertension Expected: 09/01/2024 (Approximate), Expires: 09/01/2025 Referral to Orthopaedic Surgery Outpatient Referral Routine Chronic left shoulder pain Expected: 09/01/2024 (Approximate), Expires: 09/01/2025 Referral to Nutrition Services, Internal Outpatient Referral Routine Class 3 severe obesity due to excess calories with serious comorbidity and body mass index (BMI) of 40.0 to 44.9 in adult ([facility]) Expected: 09/01/2024 (Approximate), Expires: 09/01/2025 documented as of this encounter Visit Diagnoses Diagnosis Palpitations- Primary SOB (shortness of breath) Shortness of breath Primary hypertension Unspecified essential hypertension Chronic left shoulder pain Pain in joint, shoulder region Anxiety with depression Class 3 severe obesity due to excess calories with serious comorbidity and body mass index (BMI) of 40.0 to 44.9 in adult ([facility]) Tuberculosis screening Screening examination for pulmonary tuberculosis Encounter for preventive care documented in this encounter Additional Health Concerns Assessment Noted Time PHQ-9 Depression Total Score: 0 01/21/20 23 3:27 PM EDT documented as of this encounter Care Teams Software Release Engineer Relationship Specialty Start Date End Date Beth Donnelly MD [address] [place] [address] PCP - General Family Medicine 05/01/19 documented as of this encounter
--- OUTSIDE RECORDS SUMMARY | 2024-09-05 07:34 | XMS_ITS | Encounter Summary ---
Author Organization [employer] Address [address] [facility] [address] [place] [address] Care Team Providers Care Community Manager Name Role Phone Beth Donnelly MD Primary Care Provide r Encounter Details Date Type Department Care Team (Latest Contact Info) Description 09/01/2024 Travel Social History Tobacco Use Types Packs/Day [...] Description 01/30/2025 3:00 PM EDT Office Visit [facility] [address] [place] [address] Alma Tellez documented as of this encounter Visit Diagnoses Not on filedocumented in this encounter Additional Health Concerns Assessment Noted Time PHQ-9 Depression Total Score: 0 01/21/20 23 3:27 PM EDT documented as of this encounter Care Teams Community Manager Relationship Specialty Start Date End Date Beth Donnelly MD [address] [place] [address] PCP - General Family Medicine 05/01/19 documented as of this encounter
--- OUTSIDE RECORDS SUMMARY | 2024-09-05 07:34 | XMS_ITS | Encounter Summary ---
Author Organization [employer] [facility] Address [address] [place] [address] Care Team Providers Care Greenkeeper Name Role Phone Beth Donnelly MD Primary Care Provide r Encounter Details Date Type Department Care Team (Latest Contact Info) Description 10/11/2018 Abstract [facility] Dental, Provider, DDS Social History [...] Description 01/30/2025 3:00 PM EDT Office Visit [facility] [address] [place] [address] Alma Tellez documented as of this encounter Visit Diagnoses Not on filedocumented in this encounter Care Teams Greenkeeper Relationship Specialty Start Date End Date Beth Donnelly MD [address] [place] [address] PCP - General Family Medicine 05/01/19 documented as of this encounter
--- OUTSIDE RECORDS SUMMARY | 2024-09-05 07:34 | XMS_ITS | Encounter Summary ---
Author Organization [employer] Address [address] [place] [id number] Care Team Providers Care Appointment Manager Name Role Phone Beth Donnelly MD Primary Care Provide r Encounter Details Date Type Department Care Team (Late st Contact Info) Description 04/22/2022 Abstract [facility] [address] [place] [address] Dental, Provider, DDS Social History Tobacco Use [...] Description 01/30/2025 3:00 PM EDT Office Visit [facility] [address] [place] [address] Alma Tellez documented as of this encounter [...] on filedocumented in this encounter Care Teams Appointment Manager Relationship Specialty Start Date End Date Beth Donnelly MD [address] [place] [address] PCP - General Family Medicine 05/01/19 documented as of this encounter
--- OUTSIDE RECORDS SUMMARY | 2024-09-05 07:34 | XMS_ITS | Clinical Summary ---
Author Organization [facility] Address [address] [place] [address] Phone Care Team Providers Care Individual Pension Consultant Name Role Phone Frankie Ambriz MD Primary Care Provider [phone] Allergies Active Allergy Reactions Criticality Noted Date Comments Ibuprofen Angioedema High 08/20/2024 Medications No known medications Active Problems No known active problems Encounters Date Type Department Care Team Description 08/20/2024 9:44 AM EDT - 08/20/2024 2:10 PM EDT [facility] Emergency [address] [place] [address] Lux Palacios MD RSV infection [...] age to complete this topic Meningococcal B Vaccine Aged Out No l onger eligible based on patient's age to complete [...] LAB MICROBIOLOGY METHOD 08/20/2024 1:28 PM EDT [facility] Influenza A PCR Not Detected Not Detected LAB MICROBIOLOGY METHOD 08/20/2024 1:28 PM EDT [facility] Influenza B PCR Not Detected Not Detected LAB MICROBIOLOGY METHOD 08/20/2024 1:28 PM EDT [facility] Coronavirus 229E Not Detected Not Detected LAB MICROBIOLOGY METHOD 08/20/2024 1:28 PM EDT [facility] Coronavirus HKU1 Not Detected Not Detected LAB MICROBIOLOGY METHOD 08/20/2024 1:28 PM EDT [facility] Coronavirus OC43 Not Detected Not Detected LAB MICROBIOLOGY METHOD 08/20/2024 1:28 PM EDT [facility] Coronavirus NL63 Not Detected Not Detected LAB MICROBIOLOGY METHOD 08/20/2024 1:28 PM EDT [facility] Parainfluenza Virus 1 Not Detected Not Detected LAB MICROBIOLOGY METHOD 08/20/2024 1:28 PM EDT [facility] Parainfluenza Virus 2 Not Detected Not Detected LAB MICROBIOLOGY METHOD 08/20/2024 1:28 PM EDT [facility] Parainfluenza Virus 3 Not Detected Not Detected LAB MICROBIOLOGY METHOD 08/20/2024 1:28 PM EDT [facility] Parainfluenza Virus 4 Not Detected Not Detected LAB MICROBIOLOGY METHOD 08/20/2024 1:28 PM EDT [facility] RSV PCR Detected(A ) Not Detected LAB MICROBIOLOGY METHOD 08/20/2024 1:28 PM EDT [facility] Human Metapneumovirus A and B Not Detected Not Detected LAB MICROBIOLOGY METHOD 08/20/2024 1:28 PM EDT [facility] Rhinovirus/Entero virus Not Detected Not Detected LAB MICROBIOLOGY METHOD 08/20/2024 1:28 PM EDT [facility] Bordetella pertussis Not Detected Not Detected LAB MICROBIOLOGY METHOD 08/20/2024 1:28 PM EDT [facility] Bordetella parapertussis Not Detected Not Detected LAB MICROBIOLOGY METHOD 08/20/2024 1:28 PM EDT [facility] Mycoplasma pneumo by PCR Not Detected Not Detected LAB MICROBIOLOGY METHOD 08/20/2024 1:28 PM EDT [facility] Chlamydia pneumoniae Not Detected Not Detected LAB MICROBIOLOGY METHOD 08/20/2024 1:28 PM EDT [facility] SARS COV-2 Not Detected Not Detected LAB MICROBIOLOGY METHOD 08/20/2024 1:28 PM EDT [facility] Swab Both anterior nares / Unknown Non-blood Collection / Unknown 08/20/2024 11:37 AM EDT 08/20/2024 12:10 PM EDT [facility] - 08/20/2024 1:28 PM EDT Testing was performed using the Cerephex Respiratory Pathogen PCR Assay. All results must [...] MICROBIOLOGY - GENERAL ORDER SANG Final Result [facility] [address] [place] [address], * (ABNORMAL) CBC auto differential (08/20/2024 11:37 AM EDT) Pathologist [facility] WBC 7.3 4.8 - 10.8 K/mcL LAB HEMETOLOGY METHOD 08/20/2024 12:15 PM EDT [facility] RBC 5.10(H) 3.80 - 4.80 M/mcL LAB HEMETOLOGY METHOD 08/20/2024 12:15 PM EDT [facility] Hemoglobin 15.1 11.5 - 16.0 g/dL LAB HEMETOLOGY METHOD 08/20/2024 12:15 PM EDT [facility] Hematocrit 47.2(H) 35.0 - 47.0 % LAB HEMETOLOGY METHOD 08/20/2024 12:15 PM EDT [facility] MCV 93.3 79.0 - 98.0 FL LAB HEMETOLOGY METHOD 08/20/2024 12:15 PM EDT [facility] MCH 29.8 27.0 - 32.0 pcg LAB HEMETOLOGY METHOD 08/20/2024 12:15 PM EDT [facility] MCHC 32.0 32.0 - 37.0 g/dL LAB HEMETOLOGY METHOD 08/20/2024 12:15 PM EDT [facility] RDW 13.8 11.0 - 15.0 % LAB HEMETOLOGY METHOD 08/20/2024 12:15 PM EDT [facility] Platelets 253 130 - 400 K/mcL LAB HEMETOLOGY METHOD 08/20/2024 12:15 PM EDT [facility] MPV 11.5(H) 7.0 - 11.0 FL LAB HEMETOLOGY METHOD 08/20/2024 12:15 PM EDT [facility] NRBC 0.0 <1.0 % LAB HEMETOLOGY METHOD 08/20/2024 12:15 PM EDT [facility] NRBC Absolute 0.00 <0.10 K/mcL LAB HEMETOLOGY METHOD 08/20/2024 12:15 PM EDT [facility] Neutrophils Relative 66.3 % LAB HEMETOLOGY METHOD 08/20/2024 12:15 PM EDT [facility] Lymphocytes Relative 23.6 % LAB HEMETOLOGY METHOD 08/20/2024 12:15 PM EDT [facility] Monocytes Relative 7.7 % LAB HEMETOLOGY METHOD 08/20/2024 12:15 PM EDT [facility] Eosinophils Relative 1.6 % LAB HEMETOLOGY METHOD 08/20/2024 12:15 PM EDT [facility] Basophils Relative 0.5 % LAB HEMETOLOGY METHOD 08/20/2024 12:15 PM EDT [facility] Immature Granulocytes Relative 0.3 % LAB HEMETOLOGY METHOD 08/20/2024 12:15 PM EDT [facility] Neutrophils Absolute 4.83 1.50 - 7.00 K/mcL LAB HEMETOLOGY METHOD 08/20/2024 12:15 PM EDT [facility] Lymphocytes Absolute 1.72 1.00 - 5.00 K/mcL LAB HEMETOLOGY METHOD 08/20/2024 12:15 PM EDT [facility] Monocytes Absolute 0.56 0.20 - 1.00 K/mcL LAB HEMETOLOGY METHOD 08/20/2024 12:15 PM EDT [facility] Eosinophils Absolute 0.12 0.00 - 0.50 K/mcL LAB HEMETOLOGY METHOD 08/20/2024 12:15 PM EDT [facility] Basophils Absolute 0.04 0.00 - 0.20 K/mcL LAB HEMETOLOGY METHOD 08/20/2024 12:15 PM EDT [facility] Immature Granulocytes Absolute 0.02 0.00 - 0.03 K/mcL LAB HEMETOLOGY METHOD 08/20/2024 12:15 PM EDT [facility] Blood Venous blood specimen / Unknown Venipuncture / Unknown 08/20/2024 11:37 AM EDT 08/20/2024 12:09 PM EDT us Reynold TRUJ[facility]O LAB BLOOD ORDERABLES Final Resul t [facility] [address] [place] [address], [place] [phone] * (ABNORMAL) Basic metabolic panel (08/20/2024 11:37 AM EDT) Sodium 136 133 - 145 mmol/L LAB CHEMISTRY METHOD 08/20/2024 12:[address] [facility] Potassium 4.3 3.5 - 5.5 mmol/L LAB CHEMISTRY METHOD 08/20/2024 12:[address] [facility] Chloride 105 96 - 110 mmol/L LAB CHEMISTRY METHOD 08/20/2024 12:[address] [facility] CO2 27 21 - 32 mmol/L LAB CHEMISTRY METHOD 08/20/2024 12:[address] [facility] Anion Gap 4 3 - 11 LAB CHEMISTRY METHOD 08/20/2024 12:[address] [facility] Glucose 101(H) 70 - 100 mg/dL LAB CHEMISTRY METHOD 08/20/2024 12:[address] [facility] BUN 12 5 - 25 mg/dL LAB CHEMISTRY METHOD 08/20/2024 12:[address] [facility] Creatinine 0.70 0.50 - 1.10 mg/dL LAB CHEMISTRY METHOD 08/20/2024 12:38 PM EDT [facility] eGFR 106 >=60 mL/min/1. 73m2 LAB CHEMISTRY METHOD 08/20/2024 12:38 PM EDT [facility] Comment:Calculation based on the??Chronic Kidney Disease Epidemiology Collaboration (CKD-EPI) equation refit??without adjustment for race. BUN/Creatinine Ratio 17.1 LAB CHEMISTRY METHOD 08/20/2024 12:38 PM EDT [facility] Calcium 10.0 8.5 - 10.5 mg/dL LAB CHEMISTRY METHOD 08/20/2024 12:38 PM EDT [facility] Blood Venous blood specimen / Unknown Venipuncture / Unknown 08/20/2024 11:37 AM EDT 08/20/2024 12:09 PM EDT us [facility]old TRUJILL[facility] LAB BLOOD ORDERABLES Final Resul t [facility] [address] [place] [address], * CT Head wo Contrast (08/20/2024 11:31 AM EDT) Anatomical Region Laterality Modality Head and Neck Computed Tomogra phy 08/20/2024 11:5 0 AM EDT Impressions 08/20/2024 11:55 AM EDT Impression: 1. Cerebral volume loss, particularly in the frontal lobes, appearing more than would be expected for the stated age. 2. No acute hemorrhage or intracranial mass effect. 3. Sinusitis. Telekishore TRUJILLO ([id number]) -------- FINAL REPORT -------- Dictated By: Lilia Agarwal Dictated Date: 08/20/2024 11:50 ET Assigned Physician: Lilia Agarwal Reviewed and Electronically Signed By: Lilia Agarwal Signed Date: 08/20/2024 11:55 ET Workstation ID: [id number] Transcribed By: Self Edit Transcribed Date: 08/20/2024 [...] or intracranial mass effect. 3. Sinusitis[place] ([id number]) -------- FINAL REPORT -------- Dictated By: Lilia Agarwal Dictated Date: 08/20/2024 11:50 ET Assigned Physician: Lilia Agarwal Reviewed and Electronically Signed By: Lilia Agarwal Signed Date: 08/20/2024 11:55 ET Workstation ID: [id number] Transcribed By: Self Edit Transcribed Date: 08/20/2024 11:50 ET [facility]old TRUJILLO IMG CT PROCEDURES Final Result from Last 3 Months Additional Health Concerns Infection Onset Date Last Indicated RSV 08/20/2024 08/20/2024 [place] [address] Care Teams Individual Pension Consultant Relationship Specialty Start Date End Date Frankie Ambriz MD [address] [address] PCP - General Gastroenterology 11/25/16
== END 2024-09-05 07:32 | disposition home or self-care (01) ==
LOC: HO.XRAY 07:31
PROVIDERS: PCP Internal Medicine; Visit Provider Internal Medicine
DX: R13.10 Dysphagia, unspecified (principal)
CPT/HCPCS: 74220

== ENCOUNTER → 2024-09-05 07:33 | Outpatient (BNV) | payer MEDICAID, SELFPAY | PROVIDERS: PCP Internal Medicine; Visit Provider Radiology Diagnostic Radiology | DX: J39.8 Other specified diseases of upper respiratory tract (principal) | CPT/HCPCS: 74220 ==

== ENCOUNTER 2024-09-13 09:26 | Outpatient (REF) | payer OTHER, SELFPAY ==
--- OUTSIDE RECORDS SUMMARY | 2024-09-13 10:24 | XMS_ITS | Encounter Summary ---
Author Organization [employer] Address [address] [address] Care Team Providers Care Transition Mgr Name Role Phone Beth Donnelly MD Primary Care Provide r Reason for Visit * Reason Onset Date Comments Call Back Request 09/05/2024 Encounter Details Date Type Department Care Team ([facility] st Contact Info) Description 09/05/2024 Telephone [facility] MEDICINE [address] [place], [place] [phone] Beth Donnelly MD [address] [place] [address] Call Back Request Social History Tobacco Use Types Packs/Day Years [...] encounter Miscellaneous Notes * Telephone Encounter - Nilda Pierre RN - 09/12/2024 10:49 AM EDT TC returned to [facility] nurse's line, no answer, left detailed VM advising PCP has reviewed message and has no concerns about pt. Undergoing endoscopy/ colonoscopy and gives clearance to proceed * Telephone Encounter - Nilda Pierre RN - 09/05/2024 3:40 PM EDT TC returned to [facility] and advised of recommendation to delay procedure until PCP can ultimately make decision based on pt.'s condition, they agree to plan Please advise on this when you are back in office next week, thank you! * Telephone Encounter - Brandy Barboza MD - 09/05/2024 3:28 PM EDT Regarding new cardiac?/respiratory? symptoms, please call GI and tell them that I do not have enough information and have not seen the patient in this regard so that I am able to say whether she is on an fairly acceptable condition to undergo a procedure, her PCP should be able to make a better recommendation. Due to proximity of the colonoscopy, I will advise to reschedule until PCP is back and she can make further recommendations, unless it is an emergency. * Telephone Encounter - Nilda Pierre RN - 09/05/2024 10:23 AM EDT Covering provider- please advise Pt. Seen by PCP 09/01/24 and c/o palpitations and sob, PCP placed referral to cardiology however appthas not yet been scheduled, and placed some bloodwork orders that have not yet been done. [facility] inquiring if pt. Can proceed with colonoscopy/ endoscopy on 09/07/24 * Telephone Encounter - Wilfredo Childress - 09/05/2024 10:12 AM EDT TC from Nani with [facility] [place] Dept stating that pt has a colonoscopy and a Upper endoscopy scheduled for 09/07/24. But they noticed that she was referred to cardiology s they are wondering if they are stillclear to proceed. Contact Nani at [phone] Option 5 documented in this encounter Plan of Treatment Upcoming Encounters Date Type Department Care Team (Late st Contact Info) Description 09/27/2024 2:30 PM EDT Immunization [facility] MEDICINE [address] [place] [address] 09/27/2024 3:00 PM EDT Immunization [facility] MEDICINE [address] [place] [address] 10/09/2024 3:00 PM EDT Nutrition [facility] DIABETES/NUTRITION [address] [place] [address] Makayla Weinstein, CONCHA [address] [place] [address] 10/17/2024 2:30 PM EDT Telemedicine [facility] MEDICINE [address] [place] [address] Beth Donnelly MD [address] [place] [address] 01/30/2025 3:00 PM EDT Office Visit [facility] ADULT DENTAL [address] [place] [address] Alma Tellez documented as of this encounter Visit Diagnoses Not on filedocumented in this encounter Additional Health Concerns Assessment Noted Time PHQ-9 Depression Total Score: 12 025 9:20 AM EDT documented as of this encounter Care Teams Transition Mgr Relationship Specialty Start Date End Date Beth Donnelly MD [address] [place] [address] PCP - General Family Medicine 05/01/19 documented as of this encounter
--- OUTSIDE RECORDS SUMMARY | 2024-09-13 10:25 | XMS_ITS | Encounter Summary ---
Author Organization [employer] Address [address] [place] [id number] Care Team Providers Care Leasing Consultant Name Role Phone Beth Donnelly MD Primary Care Provide r Encounter Details Date Type Department Care Team (Latest Contact Info) Description 10/11/2018 Abstract [facility] CONVERSIONS Dental, Provider, DDS Social History [...] Care Team ( st Contact Info) Description 09/27/2024 2:30 PM EDT Immunization [facility] MEDICINE [address] [place] [address] 09/27/2024 3:00 PM EDT Immunization [facility] MEDICINE [address] [place] [address] 10/09/2024 3:00 PM EDT Nutrition [facility] DIABETES/NUTRITION [address] [place] [address] [place] [address] 10/17/2024 2:30 PM EDT Telemedicine [facility] MEDICINE [address] [place] [address] Beth Donnelly MD [address] [place] [address] 01/30/2025 3:00 PM EDT Office Visit [facility] ADULT DENTAL [address] [place], [place] [phone] Alma Tellez documented as of this encounter Visit Diagnoses Not on filedocumented in this encounter Care Teams Leasing Consultant Relationship Specialty Start Date End Date Beth Donnelly MD [address] [place] [address] PCP - General Family Medicine 05/01/19 documented as of this encounter
--- OUTSIDE RECORDS SUMMARY | 2024-09-13 10:25 | XMS_ITS | Clinical Summary ---
Author Organization [facility] Address [address] [place] [address] Phone Care Team Providers Care Digital Campaign Manager Name Role Phone Frankie Ambriz MD Primary Care Provider [phone] Allergies Active Allergy Reactions Criticality Noted Date Comments Ibuprofen Angioedema High 08/20/2024 Medications No known medications Active Problems No known active problems Encounters Date Type Department Care Team Description 08/20/2024 9:44 AM EDT - 08/20/2024 2:[address] [facility] [address] [place] [address] Lux Palacios MD RSV infection [...] LAB MICROBIOLOGY METHOD 08/20/2024 1:28 PM EDT [facility] Influenza A PCR Not Detected Not Detected LAB MICROBIOLOGY METHOD 08/20/2024 1:28 PM EDT [facility] Influenza B PCR Not Detected Not Detected LAB MICROBIOLOGY METHOD 08/20/2024 1:28 PM EDT [facility] Coronavirus 229E Not Detected Not Detected LAB MICROBIOLOGY METHOD 08/20/2024 1:28 PM EDT [facility] Coronavirus HKU1 Not Detected Not Detected LAB MICROBIOLOGY METHOD 08/20/2024 1:28 PM EDT [facility] Coronavirus OC43 Not Detected Not Detected LAB MICROBIOLOGY METHOD 08/20/2024 1:28 PM EDT [facility] Coronavirus NL63 Not Detected Not Detected LAB MICROBIOLOGY METHOD 08/20/2024 1:28 PM EDT [facility] Parainfluenza Virus 1 Not Detected Not Detected LAB MICROBIOLOGY METHOD 08/20/2024 1:28 PM EDT [facility] Parainfluenza Virus 2 Not Detected Not Detected LAB MICROBIOLOGY METHOD 08/20/2024 1:28 PM EDT [facility] Parainfluenza Virus 3 Not Detected Not Detected LAB MICROBIOLOGY METHOD 08/20/2024 1:28 PM EDT [facility] Parainfluenza Virus 4 Not Detected Not Detected LAB MICROBIOLOGY METHOD 08/20/2024 1:28 PM EDT [facility] RSV PCR Detected(A ) Not Detected LAB MICROBIOLOGY METHOD 08/20/2024 1:28 PM EDT [facility] Human Metapneumovirus A and B Not Detected Not Detected LAB MICROBIOLOGY METHOD 08/20/2024 1:28 PM EDT [facility] Rhinovirus/Entero virus Not Detected Not Detected LAB MICROBIOLOGY METHOD 08/20/2024 1:28 PM EDT [facility] Bordetella pertussis Not Detected Not Detected LAB MICROBIOLOGY METHOD 08/20/2024 1:28 PM EDT [facility] Bordetella parapertussis Not Detected Not Detected LAB MICROBIOLOGY METHOD 08/20/2024 1:28 PM EDT [facility] Mycoplasma pneumo by PCR Not Detected Not Detected LAB MICROBIOLOGY METHOD 08/20/2024 1:28 PM EDT [facility] Chlamydia pneumoniae Not Detected Not Detected LAB MICROBIOLOGY METHOD 08/20/2024 1:28 PM EDT [facility] SARS COV-2 Not Detected Not Detected LAB MICROBIOLOGY METHOD 08/20/2024 1:28 PM EDT [facility] Swab Both anterior nares / Unknown Non-blood Collection / Unknown 08/20/2024 11:37 AM EDT 08/20/2024 12:10 PM EDT [facility] - 08/20/2024 1:28 PM EDT Testing was performed using the [employer] Respiratory Pathogen PCR Assay. All results must [...] MICROBIOLOGY - GENERAL ORDER SANG Final Result [facility] [address] [place] [address], * (ABNORMAL) CBC auto differential (08/20/2024 11:37 AM EDT) Pathologist [facility] WBC 7.3 4.8 - 10.8 K/mcL LAB HEMETOLOGY METHOD 08/20/2024 12:15 PM EDT [facility] RBC 5.10(H) 3.80 - 4.80 M/mcL LAB HEMETOLOGY METHOD 08/20/2024 12:15 PM EDT [facility] Hemoglobin 15.1 11.5 - 16.0 g/dL LAB HEMETOLOGY METHOD 08/20/2024 12:15 PM EDT [facility] Hematocrit 47.2(H) 35.0 - 47.0 % LAB HEMETOLOGY METHOD 08/20/2024 12:15 PM EDT [facility] MCV 93.3 79.0 - 98.0 FL LAB HEMETOLOGY METHOD 08/20/2024 12:15 PM EDT [facility] MCH 29.8 27.0 - 32.0 pcg LAB HEMETOLOGY METHOD 08/20/2024 12:15 PM EDT [facility] MCHC 32.0 32.0 - 37.0 g/dL LAB HEMETOLOGY METHOD 08/20/2024 12:15 PM EDT [facility] RDW 13.8 11.0 - 15.0 % LAB HEMETOLOGY METHOD 08/20/2024 12:15 PM EDT [facility] Platelets 253 130 - 400 K/mcL LAB HEMETOLOGY METHOD 08/20/2024 12:15 PM EDT [facility] MPV 11.5(H) 7.0 - 11.0 FL LAB HEMETOLOGY METHOD 08/20/2024 12:15 PM EDT [facility] NRBC 0.0 <1.0 % LAB HEMETOLOGY METHOD 08/20/2024 12:15 PM EDT [facility] NRBC Absolute 0.00 <0.10 K/mcL LAB HEMETOLOGY METHOD 08/20/2024 12:15 PM EDT [facility] Neutrophils Relative 66.3 % LAB HEMETOLOGY METHOD 08/20/2024 12:15 PM EDT [facility] Lymphocytes Relative 23.6 % LAB HEMETOLOGY METHOD 08/20/2024 12:15 PM EDT [facility] Monocytes Relative 7.7 % LAB HEMETOLOGY METHOD 08/20/2024 12:15 PM EDT [facility] Eosinophils Relative 1.6 % LAB HEMETOLOGY METHOD 08/20/2024 12:15 PM EDT [facility] Basophils Relative 0.5 % LAB HEMETOLOGY METHOD 08/20/2024 12:15 PM EDT [facility] Immature Granulocytes Relative 0.3 % LAB HEMETOLOGY METHOD 08/20/2024 12:15 PM EDT [facility] Neutrophils Absolute 4.83 1.50 - 7.00 K/mcL LAB HEMETOLOGY METHOD 08/20/2024 12:15 PM EDT [facility] Lymphocytes Absolute 1.72 1.00 - 5.00 K/mcL LAB HEMETOLOGY METHOD 08/20/2024 12:15 PM EDT [facility] Monocytes Absolute 0.56 0.20 - 1.00 K/mcL LAB HEMETOLOGY METHOD 08/20/2024 12:15 PM EDT [facility] Eosinophils Absolute 0.12 0.00 - 0.50 K/mcL LAB HEMETOLOGY METHOD 08/20/2024 12:15 PM EDT [facility] Basophils Absolute 0.04 0.00 - 0.20 K/mcL LAB HEMETOLOGY METHOD 08/20/2024 12:15 PM EDT [facility] Immature Granulocytes Absolute 0.02 0.00 - 0.03 K/mcL LAB HEMETOLOGY METHOD 08/20/2024 12:15 PM EDT [facility] Blood Venous blood specimen / Unknown Venipuncture / Unknown 08/20/2024 11:37 AM EDT 08/20/2024 12:09 PM EDT us Reynold TRUJILLO LAB BLOOD ORDERABLES Final Resul t [facility] [address] [place] [address], [place] [phone] * (ABNORMAL) Basic metabolic panel (08/20/2024 11:37 AM EDT) Sodium 136 133 - 145 mmol/L LAB CHEMISTRY METHOD 08/20/2024 12:38 PM [facility] Potassium 4.3 3.5 - 5.5 mmol/L LAB CHEMISTRY METHOD 08/20/2024 12:38 PM [facility] Chloride 105 96 - 110 mmol/L LAB CHEMISTRY METHOD 08/20/2024 12:38 PM [facility] CO2 27 21 - 32 mmol/L LAB CHEMISTRY METHOD 08/20/2024 12:38 PM [facility] Anion Gap 4 3 - 11 LAB CHEMISTRY METHOD 08/20/2024 12:38 PM [facility] Glucose 101(H) 70 - 100 mg/dL LAB CHEMISTRY METHOD 08/20/2024 12:38 PM [facility] BUN 12 5 - 25 mg/dL LAB CHEMISTRY METHOD 08/20/2024 12:38 PM [facility] Creatinine 0.70 0.50 - 1.10 mg/dL LAB CHEMISTRY METHOD 08/20/2024 12:38 PM EDT [facility] eGFR 106 >=60 mL/min/1. 73m2 LAB CHEMISTRY METHOD 08/20/2024 12:38 PM EDT [facility] Comment:Calculation based on the??Chronic Kidney Disease Epidemiology Collaboration (CKD-EPI) equation refit??without adjustment for race. BUN/Creatinine Ratio 17.1 LAB CHEMISTRY METHOD 08/20/2024 12:38 PM EDT [facility] Calcium 10.0 8.5 - 10.5 mg/dL LAB CHEMISTRY METHOD 08/20/2024 12:38 PM EDT [facility] Blood Venous blood specimen / Unknown Venipuncture / Unknown 08/20/2024 11:37 AM EDT 08/20/2024 12:09 PM EDT us Reynold TRUJILLO LAB BLOOD ORDERABLES Final Resul t [facility] [address] [place] [address], * CT Head wo Contrast (08/20/2024 11:31 AM EDT) Anatomical Region Laterality Modality Head and Neck Computed Tomogra phy 08/20/2024 11:5 0 AM EDT Impressions 08/20/2024 11:55 AM EDT Impression: 1. Cerebral volume loss, particularly in the frontal lobes, appearing more than would be expected for the stated age. 2. No acute hemorrhage or intracranial mass effect. 3. Sinusitis. Telekishore TRUJILLO ([id number]) -------- FINAL REPORT -------- Dictated By: Lilia Agarwal Dictated Date: 08/20/2024 11:50 ET Assigned Physician: Lilia Agarwal Reviewed and Electronically Signed By: Lilia Agarwal Signed Date: 08/20/2024 11:55 ET Workstation ID: [id number] Transcribed By: Self Edit Transcribed Date: 08/20/2024 [...] or intracranial mass effect. 3. Sinusitis. [place] ([id number]) -------- FINAL REPORT -------- Dictated By: Lilia Agarwal Dictated Date: 08/20/2024 11:50 ET Assigned Physician: Lilia Agarwal Reviewed and Electronically Signed By: Lilia Agarwal Signed Date: 08/20/2024 11:55 ET Workstation ID: [id number] Transcribed By: Self Edit Transcribed Date: 08/20/2024 11:50 ET Reynold TRUJILLO IMG CT PROCEDURES Final Result from Last 3 Months Additional Health Concerns Infection Onset Date Last Indicated RSV 08/20/2024 08/20/2024 Insurance PLAN Care Teams Digital Campaign Manager Relationship Specialty Start Date End Date Frankie Ambriz MD [address] [address] PCP - General Gastroenterology 11/25/16
--- OUTSIDE RECORDS SUMMARY | 2024-09-13 10:25 | XMS_ITS | Encounter Summary ---
Author Organization [email or web address] Address [address] [place] [address] Care Team Providers Care Manager Cosmetic Name Role Phone Beth Donnelly MD Primary Care Provide r Encounter Details Date Type Department Care Team (Late st Contact Info) Description 04/22/2022 Abstract [facility] ADULT DENTAL [address] [place] [address] Dental, Provider, DDS Social History Tobacco Use [...] Info) Description 09/27/2024 2:30 PM EDT Immunization [facility] MEDICINE [address] [place] [address] 09/27/2024 3:00 PM EDT Immunization [facility] MEDICINE [address] [place] [address] 10/09/2024 3:00 PM EDT Nutrition [facility] DIABETES/NUTRITION [address] [place] [address] Makayla Weinstein, CONCHA [address] [place] [address] 10/17/2024 2:30 PM EDT Telemedicine [facility] MEDICINE [address] [place] [address] Beth Donnelly MD [address] [place] [address] 01/30/2025 3:00 PM EDT Office Visit [facility] ADULT DENTAL [address] [place] [address] Alma Tellez documented as of this encounter [...] on filedocumented in this encounter Care Teams Manager Cosmetic Relationship Specialty Start Date End Date Beth Donnelly MD [address] [place] [address] PCP - General Family Medicine 05/01/19 documented as of this encounter
--- OUTSIDE RECORDS SUMMARY | 2024-09-13 10:25 | XMS_ITS | Clinical Summary ---
Author Organization [employer] Address [address] [place] [address] [address] [address] Care Team Providers Care Particle Board Supervisor Name Role Phone Beth Donnelly MD [...] organization. Date Type Department Care Team Description 09/13/2024 Telephone [facility] [address] [place] [address] Beth Donnelly MD 09/05/2024 Orders Only [facility] External Provider, [facility] 09/05/2024 Telephone [facility] [address] [place] [address] Beth Donnelly MD Call Back Request 09/01/2024 2:45 PM EDT Office Visit [address] [address] Beth Donnelly MD Palpitations (Primary Dx); SOB (shortness of breath); Primary hypertension; Chronic left shoulder pain; Anxiety with depression; Class 3 severe obesity due to excess calories with serious comorbidity and body mass index (BMI) of 40.0 to 44.9 in adult; Tuberculosis screening; Encounter for preventive care 09/01/2024 Travel 08/30/[address] [address] Nilda Pierre, RN Results 08/24/2024 10:15 AM EDT Procedure Visit [address] [address] Beth Donnelly MD Uncontrolled hypertension (Primary Dx); Pap smear for cervical cancer screening 08/24/2024 Orders Only [address] [address] Beth Donnelly MD 08/24/2024 Patient Outreach [address] [address] Beth Donnelly MD Pre-visit Planning ((Unable to reach for PVP screening, LVM)) 08/24/2024 Travel 07/25/2024 1:00 PM EST Office Visit [facility] [address] [place] [address] Alma Tellez Dental plaque (Primary Dx); Dental calculus; Encounter for dental examination 07/13/[address] [address] Beth Donnelly MD No Show 06/26/2024 11:20 AM EST Office Visit [facility] [address] [place] [address] Cameron Monaco MD Neck pain, chronic (Primary [...] Info) Description 09/27/2024 2:30 PM EDT Immunization [facility] [address] [place] [address] 09/27/2024 3:00 PM EDT Immunization [facility] [address] [place] [address] 10/09/2024 3:00 PM EDT Nutrition [facility] DIABETES/NUTRITION [address] [place] [address] Makayla Weinstein, RD [address] [place] [address] 10/17/2024 2:30 PM EDT Telemedicine [facility] [address] [place] [address] Beth Donnelly MD [address] [place] [address] 01/30/2025 3:00 PM EDT Office Visit [facility] [address] [place] [address] Alma Tellez Health Maintenance Due Date Last Done Comments CT Colonography 1974 Colonoscopy 1974 Colorectal Cancer Screening 1974 FIT DNA/Cologuard 1974 FIT 1974 FOBT 1974 Sigmoidoscopy 1974 Family Planning (PISQ) 1989 Hepatitis C Screening 1992 DTaP/Tdap/Td Vaccines (1 - Tdap) 1993 Hepatitis B Vaccines (1 of 3 - 19+ 3-dose series) 1993 COVID-19 Vaccine (4 - 2024-25 season) 2024 04/28/2021, 07/26/2020, 07/05/2020 Dental X-Ray: [...] 11/25/2023, 04/20/2022, Additional history exists Depression Monitoring 03/06/2025 09/04/2024, 025 Alcohol/Substance Use Screening 08/24/2025 08/24/2024 Mammogram 08/29/2025 08/29/2024, 03/0 07/2023, 07/25/2022, Additional history exists Tobacco Screening 09/01/2025 09/01/2024 Depression Screening 09/04/2025 09/04/2024, 09/05/19 25 Lipid Panel 01/31/2028 01/30/2023 Cervical Cancer Screening [...] Procedure Name Priority Date/Time Associated Diagnosis Comments FL ESOPHAGUS BARIUM SWALLOW Routine 09/05/2024 7:33 AM EDT BI MAMMOGRAM SCREENING TOMOSYNTHESIS BILATERAL Routine 08/29/2024 [...] :00 PM EST Dental plaque Dental calculus BITEWINGS - 4 RADIOGRAPHIC IMAGES Routine 11/25/2023 3:00 PM EDT LIPID PANEL, STANDARD Routine 01/30/2023 9:26 AM EDT Chronic fatigue INTRAORAL - COMPLETE SERIES OF RADIOGRAPHIC IMAGES Routine 07/28/2021 12:00 AM EST ZZZ HISTORICAL HIV AB/AG Routine 06/24/2019 9:00 AM EST from Last 3 Months or Most Recently Relevant to Health Maintenance Results * FL Esophagus Barium Swallow (09/05/2024 7:33 AM EDT) Anatomical Region Laterality Modality Head, Neck Radiographic Sonal ging 09/05/2024 7:33 AM EDT Narrative 09/05/2024 10:35 AM EDT ? [facility] ?[address] ?[place] [address] ? Fluoroscopy Report ? Signed ? Patient: Monroe,Aura A ?MR#: [id number] ?? [id number] ? : 1975 ?Acct:[id number] ? Age/Sex: 49 / F ?ADM Date: 09/05/24 ? Loc: HO.XRAY ? Attending Dr: Angeles Walker MD ? Ordering Physician: Angeles Walker MD ?? Date of Service: 09/05/24 ?? Procedure(s): FL barium swallow ?? Accession Number(s): [id number] ? cc: Beth Donnelly MD; Angeles Walker MD ? EXAMINATION: ?? XR BARIUM SWALLOW ? CLINICAL INFORMATION: ?? Trachea ? COMPARISON: ?? None available. ? TECHNIQUE: ?? Routine upright barium swallow was performed following oral ?? administration of thick barium and barium coated saltine crackers. ?? Subsequently thin barium was administered in prone lying position. ? FINDINGS: ?? Following oral administration of thick barium and barium coated saltine ?? crackers or solid food there is normal oral mastication with solid ?? food. There is normal perfusion bolus from the oral cavity through the ?? pharynx, esophagus into stomach without any evidence of obstruction, ?? narrowing or stricture. No extrinsic compression or mass effect seen. ?? The mucosal esophagus is normal. ? On placing patient in prone position and oral administration of thin ?? barium there is widely patent and distended esophagus without any ?? intrinsic or extrinsic compression. There is no gastroesophageal reflux ?? or hiatal hernia seen in supine and prone position. ? FLUOROSCOPY TIME: ?? 2 minutes 34 seconds ? DOSE AREA PRODUCT: ?? 210.6 uGy-m2 (microgray-meter squared) ? FL/FL barium swallow ?? IMPRESSION: ?? Unremarkable ??barium swallow exam ? Electronically signed by: ??Gera Stephanie MD ??09/05/2024 10:31 AM EDT RP ? Dictated By: ?Stephanie,Gera S MD ? Signed By: ?<Electronically signed by Gera S Stephanie, MD in OV> ?09/05/24 1031 ? DD/ 0733 ? TD/TT: 09/05/24 0800 ? Warehouse Receiving Supervisor: MSM ? Procedure Note Donotuseinterpreter, Image - 09/05/[address] [address] Fluoroscopy Report Signed Patient: Aura Childress [facility]R#: [id number] : 1975Acct:[id number] Age/Sex: 49 / FADM Date: 09/05/24 Loc: HO.XRAY Attending Dr: Angeles Walker MD Ordering Physician: Angeles Walker MD Date of Service: 09/05/24 Procedure(s): FL barium swallow Accession Number(s): [id number] cc: Beth Donnelly MD; Angeles Walker MD EXAMINATION: XR BARIUM SWALLOW CLINICAL INFORMATION: Trachea COMPARISON: None available. TECHNIQUE: Routine upright barium swallow was performed following oral administration of thick barium and barium coated saltine crackers. Subsequently thin barium was administered in prone lying position. FINDINGS: Following oral administration of thick barium and barium coated saltine crackers or solid food there is normal oral mastication with solid food. There is normal perfusion bolus from the oral cavity through the pharynx, esophagus into stomach without any evidence of obstruction, narrowing or stricture. No extrinsic compression or mass effect seen. The mucosal esophagus is normal. On placing patient in prone position and oral administration of thin barium there is widely patent and distended esophagus without any intrinsic or extrinsic compression. There is no gastroesophageal reflux or hiatal hernia seen in supine and prone position. FLUOROSCOPY TIME: 2 minutes 34 seconds DOSE AREA PRODUCT: 210.6 uGy-m2 (microgray-meter squared) FL/FL barium swallow IMPRESSION: Unremarkable barium swallow exam Electronically signed by: Gera Brown MD 09/05/2024 10:31 AM EDT Dictated By: Gera Brown MD Signed By: <Electronically signed by Gera Brown MD in OV> 09/05/24 1031 DD/ 0733 TD/TT: 09/05/24 0800 Warehouse Receiving Supervisor: MUKESH [facility] External Provider IMG FLU OROSCOPY PROCEDURES Final Result * BI Mammogram Screening Tomosynthesis Bilateral (08/29/2024 2:56 PM EDT) Anatomical Region Laterality Modality Breast Bilateral Mammography 08/29/2024 2:56 PM EDT Narrative 09/03/2024 8:11 PM EDT ? [facility] ? [address] [facility] ?[place] [address] ?[phone] ? Mammography Report ? Signed ? Patient: Monroe,Aura A ?MR#: [id number] ?? [id number] ? : 1975 ?Acct:[id number] ? Age/Sex: 49 / F ?ADM Date: 08/29/24 ? Loc: HO.MAMMO ? Attending Dr: Beth Gomez MD ? Ordering Physician: Beth Donnelly MD ?Results: ?? 1Negative ? Date of Service: 08/29/24 ?Follow Up: 1 Year From Orig ?? inal Mammogram ? Procedure(s): MM tomosynthesis screening BI ?? Accession Number(s): [id number] ? cc: Beth Donnelly MD ? EXAMINATION: [...] by Bibi Centeno, DO in OV> ? 09/03/242007 ? DD/ 1456 ? TD/TT: 08/29/24 1518 ? Warehouse Receiving Supervisor: ? Procedure Note Klaudia, Nilo - 09/03/2024 [facility] [address] [place], [place] [address] Mammography Report Signed Patient: Aura Childress [facility]#: [id number] : 1975Acct:[id number] Age/Sex: 49 / FADM Date: 08/29/24 Loc: HO.MAMMO Attending Dr: Beth Gomez MD Ordering Physician: Beth Donnelly MDResults: 1Negative Date of Service: 08/29/24Follow Up: 1 Year From Orig inal Mammogram Procedure(s): MM tomosynthesis screening BI Accession Number(s): [id number] cc: eBth Donnelly MD EXAMINATION: MM SCREENING DIGITAL BREAST [...] Bibi Centeno DO 09/03/2024 08:08 PM EDT RP Dictated By: Bibi Centeno DO Signed By: <Electronically signed by Bibi Centeno DO in OV> 09/03/242007 DD/ 1456 TD/TT: 08/29/24 1518 Warehouse Receiving Supervisor: us Beth Gomez MD IMG BI PROCEDURES Rhett elliott Result - Final * HPV DNA, Low/High Risk (08/24/2024 11:34 AM EDT) HPV High Risk Negative Negative [facility] HPV Genotype 16 Negative Negative [facility] HPV Genotype 18 Negative Negative [facility] Comment:HPV testing performe d at [facility] (CLIA#[id number]), [address] [place] [address].Testing for HPV was performed using the Tai [...] Gomez MD LAB BLOOD ORDERABLES Final Result [facility] [address] [place] [phone] * Pap Smear (08/24/2024 11:34 AM EDT) Swab 08/24/2024 11:3 4 AM EDT 08/25/2024 6:50 AM EDT Narrative [facility] - 08/30/2024 9:34 AM EDT ----- ------- Name: Aura Childress ? Age/Sex: 49/F ? : 1975 Unit#: [id number] ?? Attend Dr: Beth Donnelly MD ?Re08/24/24 ?Status: DEP REF ? Location: HO.LNP ?Disch: ? ----- ------- SPEC : [id number] ? RECD: 08/25/24 ? STATUS: ??SOUT ? REQ NUM: [id number] ? KAREN: 08/24/24 ? SUBM DR: Beth Donnelly MD ? ENTERED: ??08/25/24 ?SP TYPE: Pap Smr ?OTHR : ? ORDERED: ??Pap Smear ? Interpretation ?? Satisfactory for evaluation. ?? Negative for intraepithelial lesion or malignancy. ? HPV High Risk: ??Negative ? HPV Genotyping 16: ??Negative ?? HPV Genotyping 18: ??Negative ?Clinical Information LMP:UNKOWN Previous PAP test:NORMAL Other surgery: Other history: ----- ------- Signed (signature on file) AUREA Yoder (ASCP) 08/30/24 [id number] ? ----- ------- ? END OF REPORT ? us Beth Gomez MD LAB CYTOLOGY ORDERABL ES Final Result [facility] [address] [place] [address] [phone] * (ABNORMAL) Lipid Panel, Standard (01/30/2023 9:26 AM EDT) Triglycerides 106 <150 mg/dL [facility] Comment:Desirable Triglyceri de: less than 150 mg/dLBorderline High Triglyceride 150-199 mg/dLHigh Triglyceride: 200-499 mg/dLVery High Triglyceride: greater than or equal to 5OO mg/dL Cholesterol 216(H) <200 mg/dL [facility] Comment:Desirable Cholestero l: less than 200 mg/dLBorderline High Cholesterol: 200-239 mg/dLHigh Cholesterol: greater than 239 mg/dL LDL Cholesterol Calculated 143(H) <100 mg/dL [facility] Comment:Desirable LDL: less than 100 mg/dLNear Optimal/Above Optimal LDL: 110- 129 mg/dLBorderline High LDL: 130-159 mg/dLHigh LDL: 160-189 mg/dLVery High LDL: greater than or equal to 190 mg/dL HDL Cholesterol 52 >40 mg/dL [facility] Comment:Desirable HDL: great er than 40 mg/dL Note: This HDL assay may give artificially low results in patients with liver disease. Blood Venous blood specimen / Unknown 01/30/2023 9:26 AM EDT 01/30/2023 9:26 AM EDT us Beth Gomez MD LAB BLOOD ORDERABLES Final Result [facility] [address] [place] [address] [phone] * HIV AB/AG (06/24/2019 9:00 AM EST) [facility] HIV AG/AB NONREACTIVE NR FOUNDATI ON LAB [...] detection of this assay. ?? The [employer] HIV Ag/Ab Combo assay result and supplemental assay results should be interpreted in conjunction with the patient's clinical presentation, history and other laboratory results. ??If the results are inconsistent with clinical evidence, additional testing is suggested to confirm the result. 06/24/2019 9:00 AM EST us Beth Gomez MD HISTORICAL/NON ORDERA BLE LABS Final Result Performing Organization Address City/[facility] Co de Phone Number [facility] [address] from Last 3 Months or Most Recently Relevant to Health Maintenance [id number]MEDICAID) Care Teams Particle Board Supervisor Relationship Specialty Start Date End Date Beth Donnelly MD [address] [place] [phone] PCP - General Family Medicine 05/01/19
--- OUTSIDE RECORDS SUMMARY | 2024-09-13 10:25 | XMS_ITS | Encounter Summary ---
Author Organization [employer] Address [address] [address] Care Team Providers Care Marketing Content Specialist Name Role Phone Beth Donnelly MD Primary Care Provide r Encounter Details Date Type Department Care Team ([facility] st Contact Info) Description 09/13/2024 Telephone [facility] MEDICINE [address] [place], [place] [phone] Beth Donenlly MD [address] [place] [address] Social History Tobacco Use Types Packs/Day Years [...] Telephone Encounter - Nilda Pierre RN - 09/13/2024 9:50 AM EDT TC returned to pt. Advised pt. Message would be sent in regards to having referral sent to an alternative office other than [facility] as pt. Did not prefer their care in the past, and other than [facility] as requested as they don't take pt.'s insurance Please advise if ortho referral from 09/01/24 can be directed to another location or if new referral should be place, thank you! Otherwise, noted pt. Due for tetanus (no record of previous), shingles, pcv, and covid if desired. Pt. Reports she was already informed by the pharmacy that shingles is due and is waiting for a callback to schedule an appt. For it. Informed pt. To come to vaccine clinic for pcv, tetanus and covidif desired and pt. Reports she will do * Telephone Encounter - Jenelle Gamal - 09/13/2024 9:23 AM EDT PT walked in requesting a referral change for ortho. PT does NOT want to go to [address] States that she does not like the care given to her there. PT would also like to know if there is a possibility she left on 09/01/24 without getting a vaccine. documented in this encounter Plan of Treatment Upcoming Encounters Date Type Department Care Team (Late st Contact Info) Description 09/27/2024 2:30 PM EDT Immunization [facility] [address] [place] [address] 09/27/2024 3:00 PM EDT Immunization [facility] [address] [place] [address] 10/09/2024 3:00 PM EDT Nutrition [facility] DIABETES/NUTRITION [address] [place] [phone] [place] [address] 10/17/2024 2:30 PM EDT Telemedicine [facility] MEDICINE [address] [place] [address] Beth Donnelly MD [address] [place] [address] 01/30/2025 3:00 PM EDT Office Visit [facility] ADULT DENTAL [address] [place] [address] Alma Tellez documented as of this encounter Visit Diagnoses Not on filedocumented in this encounter Additional Health Concerns Assessment Noted Time PHQ-9 Depression Total Score: 12 025 9:20 AM EDT documented as of this encounter Care Teams Marketing Content Specialist Relationship Specialty Start Date End Date Beth Donnelly MD [address] [place] [address] PCP - General Family Medicine 05/01/19 documented as of this encounter
--- OUTSIDE RECORDS SUMMARY | 2024-09-13 10:25 | XMS_ITS | Encounter Summary ---
Author Organization [employer] Address [address] [place] [address] [address], [place] [address] Care Team Providers Care Director Of Online Education Name Role Phone Beth Donnelly MD Primary Care Provide r Encounter Details Date Type Department Care Team (Latest Contact Info) Description 07/28/2021 Abstract [facility] Dental, Provider, DDS Social History [...] Info) Description 09/27/2024 2:30 PM EDT Immunization [facility] [address] [place] [phone] 09/27/2024 3:00 PM EDT Immunization [facility] [address] [place] [address] 10/09/2024 3:00 PM EDT Nutrition [facility] DIABETES/NUTRITION [address] [place] [phone] [place] [address] 10/17/2024 2:30 PM EDT Telemedicine [facility] [address] [place] [phone] Beth Donnelly MD [address] [place] [address] 01/30/2025 3:00 PM EDT Office Visit [facility] ADULT DENTAL [address] [place], [place] [phone] Alma Tellez documented as of this encounter Visit Diagnoses Not on filedocumented in this encounter Care Teams Director Of Online Education Relationship Specialty Start Date End Date Beth Donnelly MD [address] [place] [address] PCP - General Family Medicine 05/01/19 documented as of this encounter
[2024-09-13 11:15] LABS: MANUAL DIFF FLAG NO
[2024-09-13 11:34] LABS: Basophils Percent Auto 0.4 % (0-2); Eosinophils Absolute Auto 0.2 X10*3/uL (0.0-0.4); Eosinophils Percent Auto 2.2 % (0-4); Hematocrit 45.3 % (37.0-47.0); Hemoglobin 15.1 g/dl (12.0-16.0); Imm Gran Abs Auto 0.02 X10*3/uL (0.00-0.03); Imm Gran Pct Auto 0.3 % (0.0-0.4); Lymphocytes Percent Auto 28.7 % (20-40); Mean Corpuscular HGB Conc 33.3 g/dl (31.0-35.0); Mean Corpuscular Hemoglobin 29.7 pg (27.0-33.0); Mean Corpuscular Volume 89.2 fL (80.0-98.0); Monocytes Absolute Auto 0.5 X10*3/uL (0.1-1.2); Monocytes Percent Auto 7.6 % (2-11); Neutrophils Absolute Auto 4.2 x10*3/uL (2.0-8.3); Neutrophils Percent Auto 60.8 % (45-73); Platelet Count 281 X10*3/uL (160-400); Red Blood Count 5.08 X10*6/uL (4.20-5.50); Red Cell Distribution Width 13.8 % (11.0-16.0); White Blood Count 6.9 X10*3/uL (4.8-10.8)
[2024-09-13 11:50] LABS: Alanine Aminotransferase 19 U/L (0-31); Albumin Level 4.3 g/dL (3.5-5.0); Alkaline Phosphatase 71 U/L (39-117); Anion Gap 13 (12-20); Aspartate Amino Transferase 28 U/L (5-31); Bilirubin Total 0.7 mg/dL (0.0-1.0); Blood Urea Nitrogen 14 mg/dL (9-16); Calcium 9.8 mg/dL (8.4-10.2); Carbon Dioxide 24 mmol/L (22-29); Chloride 106 mmol/L (96-108); Cholesterol 212 mg/dL (<200); Estimated Glomerular Filt Rate > 60; Glucose Random 95 mg/dL (60-115); HDL Cholesterol 51 mg/dL (>40); LDL Cholesterol Calculated 137 mg/dL (<100); Potassium 3.7 mmol/L (3.3-5.1); Sodium 139 mmol/L (135-145); Total Protein 7.7 g/dL (6.5-8.0); Triglycerides 122 mg/dL (<150)
[2024-09-13 12:09] LABS: TSH reflex Free T4 2.13 uIU/mL (0.32-4.0)
[2024-09-16 10:07] LABS: TS Negative Control Passed; TS Panel A 0; TS Panel B 0; TS Positive Control Passed; TSpotTB Negative (Negative)
== END 2024-09-13 09:27 | disposition home or self-care (01) ==
LOC: HO.HHCL 09:26
PROVIDERS: Visit Provider Internal Medicine
DX: I10 Essential (primary) hypertension (principal); R00.2 Palpitations; Z11.1 Encounter for screening for respiratory tuberculosis
CPT/HCPCS: 36415; 80053; 80061; 84443; 85025; 86481

== ENCOUNTER 2024-10-12 07:54 | Day surgery (SDC) | payer OTHER, SELFPAY ==
--- OUTSIDE RECORDS SUMMARY | 2024-08-10 16:25 | XMS_ITS | Encounter Summary ---
Author Organization [employer] Address [address] [place] [id number] Care Team Providers Care Senior Linux Unix Engineer Name Role Phone Beth Donnelly MD Primary Care Provide r Encounter Details Date Type Department Care Team (Latest Contact Info) Description 10/11/2018 Abstract [facility] Dental, Provider, DDS Social History Tobacco Use Types Packs/Day Years Used Date Smoking Tobacco: Never Assessed Comments Unknown Sex and Gender Information Value Date Recorded Sex Assigned at Female 03/30/2022 10:28 AM EDT Legal Sex Female 10:28 AM EDT Gender Identity Female 03/30/2022 10:28 AM EDT Sexual Orientation Straight 03/30/2022 10 :28 AM EDT documented as of this encounter Plan of Treatment Upcoming Encounters Date Type Department Care Team ( st Contact Info) Description 08/24/2024 10:15 AM EDT Procedure Visit [facility] [address] [place] [id number] Beth Donnelly MD [address] [place] [phone] 09/01/2024 2:45 PM EDT Office Visit [facility] [address] [place] [id number] Beth Donnelly MD [address] [place] [phone] 01/30/2025 3:00 PM EDT Office Visit [facility] [address] [place] [address] [place] [address] Alma Tellez documented as of this encounter Visit Diagnoses Not on filedocumented in this encounter Care Teams Senior Linux Unix Engineer Relationship Specialty Start Date End Date Beth Donnelly MD [address] [place] [address] PCP - General Family Medicine 05/01/19 documented as of this encounter
--- OUTSIDE RECORDS SUMMARY | 2024-08-10 16:25 | XMS_ITS | Encounter Summary ---
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 Name Role Phone Beth Donnelly MD Primary Care Provide r Reason for Visit * Reason Comments Routine Cleaning Encounter Details Date Type Department Care Team (Late st Contact Info) Description 07/25/2024 1:00 PM EST Office Visit [facility] [address] [place] [address] Alma Tellez Dental plaque (Primary Dx); Dental calculus; Encounter for dental examination Social History Tobacco Use Types Packs/Day Years Used Date Smoking Tobacco: Never Passive Smoke Exposure: Never Smokeless Tobacco: Never Depression Answer Date Recorded Patient Health Questionnaire-9 Score 0 01/20/2023 Housing Stability Answer Date Recorded What is your housing situation today? I have juni arreola 03/17/[address] you li ve. Do you have problems with any of the following? None of the above 03/17/2023 Food Insecurity Answer Date Recorded Within the past 12 months, y ou worried that your food would run out before you got money to buy more: Never True 03/17/2023 Within the past 12 months,th e food you bought just didn't last and you didn't have enough money to get more: Never True Transportation Answer Date Recorded In the past 12 months, has l ack of transportation kept you from medical appts, meetings, work or from getting things needed for daily living? No 03/17/2023 Utilities Answer Date Recorded In the past 12 months, has t he electric, gas, oil or water company threatened to shut off services in your home? No 03/17/2023 Depression Answer Date Recorded Patient Health Questionnaire-2 Score 0 01/20/2023 Internet Access Answer Date Recorded Internet Access Q1 Yes 01/31/2024 Internet Access Q2 Not on file 01/31/2024 Comments Unknown Sex and Gender Information Value Date Recorded Sex Assigned at Female 03/30/2022 10:28 AM EDT Legal Sex Female 10:28 AM EDT Gender Identity Female 03/30/2022 10:28 AM EDT Sexual Orientation Straight 03/30/2022 10 :28 AM EDT documented as of this encounter Last Filed Vital Signs Vital Sign Reading Time Taken Comments Blood Pressure 132/76 07/25/2024 12:59 PM EST Pulse - - Temperature - - Respiratory Rate - - Oxygen Saturation - - Inhaled Oxygen Concentration - - Weight - - Height - - Body Mass Index - - documented in this encounter Progress Notes * Alma Tellez - 07/25/2024 1:00 PM EST Patient ID: Aura Childress is a 48 y.o. female. Time Out: Timeout Date: 07/25/24, Timeout Time: 1300 (prophy and exam adult dental) Location: [facility] Tooth: Maxilla and Mandible Procedure: Exam and Prophylaxis Verified the above with patient, clinical assistant professor, and provider. Confirmed via patient's chart, intraorally and by radiographs. It Coordinator: not applicable Medical Hx: Vitals: Blood pressure 132/76. Medications, Med Hx reviewed with patient and updated in chart. Treatment Provided Dental procedures in this visit D1110 - PROPHYLAXIS - ADULT (Completed) Service provider: Alma Tellez [place] provider: Ivonne Rivera DDS D9450 - CASE PRESENTATION, DETAILED AND EXTENSIVE TREATMENT PLANNING (Completed) Service provider: Alma Tellez [place] provider: Ivonne Rivera DDS [id number] - ORAL HYGIENE INSTRUCTIONS (Completed) Service provider: Alma Tellez [place] provider: Ivonne Rivera DDS Instruments Used: Ultrasonic Scalers, Hand Scalers, and Prophy angle Fluoride: N/A Oral Cancer Screening: No lesions Head/Neck Exam: No Lesions Calculus: Moderate and Localized Plaque: Moderate and Generalized Stain: Light and Generalized Bleeding: Moderate and Localized Gingiva: Erythematous OH: Fair Perio Chart: Not Completed - patient not due Exam with Dr. Garvey Oral hygiene instructions provided to patient including brushing technique and flossing. Recommendations: [place] two times daily, modified avilez technique, Floss daily, Electric toothbrush, Soft bristle toothbrush, [place] Tongue, Anti-sensitivity toothpaste Recall Frequency: 6 mo NV: 6mrc, exam Hygienist: Alma Tellez RDH Cosigned by Ivonne Rivera DDS at 07/25/2024 2:31 PM EST Associated attestation - Ivonne Rivera DDS - 07/25/2024 2:31 PM EST I have reviewed the documentation and dental procedures made by the rendering provider, Alma Tellez RDH , and approve their chart entries for this visit. Ivonne Rivera DDS * Ivonne Rivera DDS - 07/25/2024 1:00 PM EST Dental procedures in this visit D1110 - PROPHYLAXIS - ADULT (Completed) Service provider: Alma Tellez Billing provider: Ivonne Rivera DDS D9450 - CASE PRESENTATION, DETAILED AND EXTENSIVE TREATMENT PLANNING (Completed) Service provider: Alma Tellez Billing provider: Ivonne Rivera DDS D1330 - ORAL HYGIENE INSTRUCTIONS (Completed) Service provider: Alma Tellez Billing provider: Ivonne Rivera DDS [id number] - PERIODIC ORAL EVALUATION - ESTABLISHED PATIENT (Completed) Service provider: Ivonne Rivera DDS Billing provider: Ivonne Rivera DDS [id number] - COMPREHENSIVE PERIODONTAL EVALUATION - NEW OR ESTABLISHED PATIENT (Completed) Service provider: Ivonne Rivera DDS Billing provider: Ivonne Rivera DDS Patient ID: Aura Childress is a 48 y.o. female. Time Out: Timeout Date: 07/25/24, Timeout Time: 1300 (prophy and exam adult dental) Location: [facility] Tooth: Maxilla and Mandible Procedure: Exam and Prophylaxis Verified the above with patient, clinical assistant professor, and provider. Confirmed via patient's chart, intraorally and by radiographs. It Coordinator: not applicable Chief Complaint Patient presents with Routine Cleaning Medical Hx: Vitals: Blood pressure 132/76. Past Medical History: Diagnosis Date Known health problems: none Medications: Outpatient Encounter Medications as of 07/25/2024 Medication Sig Dispense Refill cyclobenzaprine (Flexeril) 10 MG tablet Take 1 tablet (10 mg) by mouth 3 times daily for 20 days. 60 tablet 0 famotidine (Pepcid) 20 MG tablet Take 1 tablet (20 mg) by mouth 2 times daily. (Patient not taking:Reported on 07/25/2024) 60 tablet 11 methocarbamol (Robaxin) 750 MG tablet Take 1 tablet (750 mg) by mouth 4 times daily for 10 days. 40tablet 0 No facility-administered encounter medications on file as of 07/25/2024. Objective HPI Soft Tissue Exam No findings documented this visit Head and Neck Exam: Lymph Nodes, Lips, Palate, Buccal Mucosa, Floor of Mouth, Tongue, Tonsils, Alveolar Ridges, Oropharynx, Salivary Ducts, and Vestibules - no significant findings observed OCS: negative Dental Exam Radiographic Interpretation: Associated radiographs for today's visit were reviewed and finding(s) were discussed with the patient. Findings include: moderate dental plaque and calculus, no cavities, sensitivity - pt using Crest sensitivity toothpaste- for the last year. Pt to try another brand -3 mo Hard Tissue Exam: No decay Perio Dx: fair OH Oral Cancer Risk: Low Risk Oral Hygiene Instructions: [place] two times daily, modified avilez technique, Floss daily, Soft bristle toothbrush, [place] Tongue Caries Risk Assessment: Low- no risk factor Assessment/Plan 6 mo periodic exam PAD and perio eval Patient tolerated procedure well, all questions answered and expressed understanding. Dismissed in good condition. NV: 6 mo periodic exam PAD and perio eval Follow Up Specialist: Alma Tellez Dentist: Ivonne Rivera DDS documented in this encounter Plan of Treatment Upcoming Encounters Date Type Department Care Team (Late st Contact Info) Description 08/24/2024 10:15 AM EDT Procedure Visit [facility] [address] [place] [address] Beth Donnelly MD [address] [place] [address] 09/01/2024 2:45 PM EDT Office Visit [facility] [address] [place] [address] Beth Donnelly MD [address] [place] [address] 01/30/2025 3:00 PM EDT Office Visit [facility] [address] [place] [address] Alma Tellez Scheduled Orders Name Type Priority Associated Diagnoses Orde r Schedule PROPHYLAXIS - ADULT Dental Routine 1 Occ urrences starting 07/25/2024 PERIODIC ORAL EVALUATION - ESTABLISHED PATIENT Dental Routine 1 Occurren tammie starting 07/25/2024 BITEWINGS - 4 RADIOGRAPHIC IMAGES Dental Routine 1 Occurrence s starting 07/25/2024 INTRAORAL - PERIAPICAL FIRST RADIOGRAPHIC IMAGE Dental Routine 1 Occur rences starting 07/25/2024 INTRAORAL - PERIAPICAL EACH ADDITIONAL RADIOGRAPHIC IMAGE Dental Routine 1 Occurrences starting 07/25/2024 INTRAORAL - PERIAPICAL EACH ADDITIONAL RADIOGRAPHIC IMAGE Dental Routine 1 Occurrences starting 07/25/2024 documented as of this encounter Procedures Procedure Name Priority Date/Time Associated Diagnosis Comments PROPHYLAXIS - ADULT Routine 07/25/2024 1 :00 PM EST Dental plaque Dental calculus PERIODIC ORAL EVALUATION - ESTABLISHED PATIENT Routine 07/25/2024 1:00 PM EST Dental plaque Dental calculus Encounter for dental examination ORAL HYGIENE INSTRUCTIONS Routine 2024 1:00 PM EST Dental plaque Dental calculus COMPREHENSIVE PERIODONTAL EVALUATION - NEW OR ESTABLISHED PATIENT Routine 07/25/2024 1:00 PM EST Dental plaque Dental calculus Encounter for dental examination CASE PRESENTATION, DETAILED AND EXTENSIVE TREATMENT PLANNING Routine 07/25/2024 1:00 PM EST documented in this encounter Visit Diagnoses Diagnosis Dental plaque- Primary Accretions on teeth Dental calculus Accretions on teeth Encounter for dental examination documented in this encounter Additional Health Concerns Assessment Noted Time PHQ-9 Depression Total Score: 0 01/21/20 23 3:27 PM EDT documented as of this encounter Care Teams Ice Skating Coach Relationship Specialty Start Date End Date Beth Donnelly MD [address] [place] [id number] PCP - General Family Medicine 05/01/19 documented as of this encounter
--- OUTSIDE RECORDS SUMMARY | 2024-08-10 16:25 | XMS_ITS | Clinical Summary ---
Author Organization [employer] Address [address] [place] [address] Care Team Providers Care Contact Center Engineer Name Role Phone Beth Donnelly MD Primary Care Provide r Allergies Active Allergy Reactions Criticality Noted Date Comments Aspirin 02/18/2016 Other reaction(s): Bruising Ibuprofen 12/03/2023 Prednisone 11/23/2017 Other reaction(s): Rash, Rash Medications famotidine (Pepcid) 20 MG tabletIndication s:Gastroesophage al reflux disease, unspecified whether esophagitis present Take 1 tablet (20 mg) by mouth 2 times daily. 60 tablet 11 4 12/03/19 25 Active Additional Information Patient not taking.Reported on 07/25/2024 methocarbamol (Robaxin) 750 MG tabletIndication s:Chronic midline low back pain with left-sided sciatica Take 1 tablet (750 mg) by mouth 4 times daily for 10 days. 40 tablet 4 Active cyclobenzaprine (Flexeril) 10 MG tablet Take 1 tablet (10 mg) by mouth 3 times daily for 20 days. 60 tablet 5 Active Active Problems Problem Noted Date Diagnosed Date Chronic left shoulder pain 12/03/2023 Dermatitis of face 12/03/2023 GERD (gastroesophageal reflux disease) 4 Assessment & Plan (12/03/2023 1:18 PM EDT): I advise patient to avoid NSAIDs, spicy and acid food, I advise to eat at the same time every day, I advise to elevate the head of the bed and take medications as prescribe Heartburn 12/03/2023 Class 3 severe obesity due t o excess calories without serious comorbidity in adult 05/19/2023 Assessment & Plan (05/19/2023 4:46 PM EST): Today extensive discussion was done about life style modifications I advise healthy diet (low calorie) and cardiovascular exercise Fibromyalgia 05/19/2023 Assessment & Plan (05/19/2023 4:46 PM EST): Patient was educated about multidisciplinary approach for her condition, it was advise cardiovascular exercise, maintain hydration, treat anxiety/depression and take medications as directed I will start cymbalta RTC 4 weeks Elevated blood pressure reading 05/19/2023 Assessment & Plan (05/19/2023 4:45 PM EST): It was advise weight reduction and low Na diet Mixed stress and urge urinary incontinence 01/20 Chronic fatigue 01/20/2023 Polyarthralgia 01/20/2023 Loud snoring 01/20/2023 Positive JIM (antinuclear antibody) 01/20/2023 Spasm of cervical paraspinous muscle 12/21/2022 Sialoadenitis 12/21/2022 Edema of face 12/21/2022 Angioedema 12/21/2022 Acute back pain with sciatica 11/26/2017 Chronic low back pain 04/10/2015 Ankle pain 04/10/2015 Encounters Date Type Department Care Team Description 07/25/2024 1:00 PM EST Office Visit [facility] ADULT DENTAL [address] [place] [address] Alma Tellez Dental plaque (Primary Dx); Dental calculus; Encounter for dental examination 07/13/2024 Telephone [facility] MEDICINE [address] [place] [address] eBth Donnelly MD No Show 06/26/2024 11:20 AM EST Office Visit [facility] [address] [place] [address] Name, MD Cameron Neck pain, chronic (Primary Dx); Pain of upper extremity, unspecified laterality; Fibromyalgia from Last 3 Months Immunizations Name Administration Dates Next Due Influenza Injectable Quadriv alant Preservative Free IIV4 MDCK 09/09/2021,03/27/2020,04/01/2018 Influenza injectable quadriv alent preservative free 04/20/2019,03/21/2015 Social History Tobacco Use Types Packs/Day Years Used Date Smoking Tobacco: Never Passive Smoke Exposure: Never Smokeless Tobacco: Never Tobacco Cessation:Counseling Given: Not Answered Depression Answer Date Recorded Patient Health Questionnaire-9 [...] Orientation Straight 03/30/2022 10 :28 AM EDT Last Filed Vital Signs Vital Sign Reading Time Taken Comments Blood Pressure 132/76 07/25/2024 12:59 PM EST Pulse 85 06/26/2024 11:10 AM EST Temperature 36.8 ??C (98.3 ??F) 06/26/2024 11:[address] Respiratory Rate 16 06/26/2024 11:10 AM EST Oxygen Saturation 97% 06/26/2024 11:10 AM EST Inhaled Oxygen Concentration - - Weight 109 kg (240 lb) 06/26/2024 11:10 AM EST Height 160 cm (5' 3 ) 12/03/2023 9:51 AM EDT Body Mass Index 42.51 12/03/2023 9:51 AM EDT Plan of Treatment Upcoming Encounters Date Type Department Care Team (Late st Contact Info) Description 08/24/2024 10:15 AM EDT Procedure Visit [facility] MEDICINE [address] [place] [address] Beth Donnelly MD [address] [place] [address] 09/01/2024 2:45 PM EDT Office Visit [facility] MEDICINE [address] [place] [address] Beth Donnelly MD [address] [place] [address] 01/30/2025 3:00 PM EDT Office Visit [facility] ADULT DENTAL [address] [place] [address] Alma Tellez Health Maintenance Due Date Last Done Comments CT Colonography 1974 Colonoscopy 1974 Colorectal Cancer Screening 1974 FIT DNA/Cologuard 1974 FIT 1974 FOBT 1974 Sigmoidoscopy 1974 Alcohol/Substance Use Screening 1986 Family Planning (PISQ) 1989 Hepatitis C Screening 1992 DTaP/Tdap/Td Vaccines (1 - Tdap) 1993 Hepatitis B Vaccines (1 of 3 - 19+ 3-dose series) 1993 Pap Smear 08/20/1995 Depression Screening 01/21/2024 01/20/2023, 01/21/20 23 COVID-19 Vaccine ( season) 2024 04/28/2021, 07/26/2020, 07/05/2020 Cervical Cancer Screening 07/20/2024 HPV/Cotest 07/20/2024 07/20/2019 Dental X-Ray: Full Mouth 07/29/2024 07/28/2021, 01/30 Mammogram 07/30/2024 07/31/2023, 07/02, 07/25/2022, Additional history exists Zoster Vaccines (1 of 2) 2024 SDOH Screening 11/22/2024 11/23/2023 Dental X-Ray: Bitewings 11/25/2024 11/25/19 24, 07/28/2021, 10/11/2018, Additional history exists Dental Oral Exam 01/23/2025 07/25/2024, , 07/28/2021, Additional history exists Dental Prophylaxis 01/23/2025 07/25/2024, 0 11/25/2023, 04/20/2022, Additional history exists Tobacco Screening 07/25/2025 07/25/2024 Lipid Panel 01/31/2028 01/30/2023 RSV Patients and Patients Aged 60 years or older (1 - 1-dose 75+ series) 2049 HIV Screening Completed 06/24/2019 Influenza Vaccine Completed 03/02/2024, , 03/27/2020, Additional history exists HIB Vaccines Aged Out No longer eligi ble based on patient's age to complete this topic HPV Vaccines Aged Out No longer eligi ble based on patient's age to complete this topic Hepatitis A Vaccines Aged Out No long er eligible based on patient's age to complete this topic IPV Vaccines Aged Out No longer eligi ble based on patient's age to complete this topic Meningococcal Vaccine Aged Out No caren david eligible based on patient's age to complete this topic Pneumococcal Vaccine: Pediatrics (0 to 5 Years) and At-Risk Patients (6 to 49) Years) Aged Out No longer eligible based on patient's age to complete this topic RSV under 20 months Aged Out No longe r eligible based on patient's age to complete this topic Rotavirus Vaccines Aged Out No longer eligible based on patient's age to complete this topic Procedures Procedure Name Priority Date/Time Associated Diagnosis Comments COMPREHENSIVE PERIODONTAL EVALUATION - NEW OR ESTABLISHED PATIENT Routine 07/25/2024 1:00 PM EST Dental plaque Dental calculus Encounter for dental examination PERIODIC ORAL EVALUATION - ESTABLISHED PATIENT Routine 07/25/2024 1:00 PM EST Dental plaque Dental calculus Encounter for dental examination CASE PRESENTATION, DETAILED AND EXTENSIVE TREATMENT PLANNING Routine 07/25/2024 1:00 PM EST ORAL HYGIENE INSTRUCTIONS Routine 07/25/2024 1:00 PM EST Dental plaque Dental calculus PROPHYLAXIS - ADULT Routine 07/25/2024 1 :00 PM EST Dental plaque Dental calculus HELICOBACTER PYLORI, UREA BREATH TEST Routine 06/12/2024 4:02 PM EST BITEWINGS - 4 RADIOGRAPHIC IMAGES Routine 11/25/2023 3:00 PM EDT BI MAMMOGRAM SCREENING TOMOSYNTHESIS BILATERAL Routine 07/31/2023 9:12 AM EST LIPID PANEL, STANDARD Routine 01/30/2023 9:26 AM EDT Chronic fatigue INTRAORAL - COMPLETE SERIES OF RADIOGRAPHIC IMAGES Routine 07/28/2021 12:00 AM EST ZZZ HISTORICAL HPV MRNA E6/E7 Routine 07/20/2019 10:16 AM EST ZZZ HISTORICAL HIV AB/AG Routine 06/24/2019 9:00 AM EST from Last 3 Months or Most Recently Relevant to Health Maintenance Results * Helicobacter pylori, Urea Breath Test (06/12/2024 4:02 PM EST) H. pylori Breath Test Negative Negative [facility] Comment:Antimicrobials, prot on pump inhibitors and bismuthpreparations are known to suppress H. pylori. Ingestingthese medications within two weeks prior to performing thebreath test may produce negative test results. A positiveresult is still clinically valid. 06/12/2024 4:02 PM EST 06/14/2024 2:45 PM EST us Generic External Data Provider LAB BLOOD ORDERAB LES Final Result [facility] [address] [place] [phone] * BI Mammogram Screening Tomosynthesis Bilateral (07/31/2023 9:12 AM EST) Anatomical Region Laterality Modality Breast Bilateral Mammography 07/31/2023 9:12 AM EST Narrative 08/12/2023 5:48 AM EDT ? [facility] ? [address] ?[place], [place] [address] ? Mammography Report ? Signed ? Patient: Aura Conti ? MR#: [id number] ? : 1975 ?Acct:[id number] ? Age/Sex: 47 / F ?ADM Date: 07/31/23 ? Loc: HO.MAMMO ? Attending Dr: Beth Gomez MD ? Ordering Physician: Beth Donnelly MD ?Results: ?? 1Negative ? Date of Service: 07/31/23 ?Follow Up: 1 Year From Orig ?? inal Mammogram ? Procedure(s): MM tomosynthesis screening BI ?? Accession Number(s): [id number] ? cc: Beth Donnelly MD ? EXAMINATION: ?? MM SCREENING DIGITAL BREAST TOMOSYNTHESIS, BILATERAL ? CLINICAL INFORMATION: ? Screening. Asymptomatic. ? COMPARISON: ?? Mammography: This study is compared with prior exams dating back to ?? 2019. ? TECHNIQUE: ?? Digital breast tomosynthesis is performed in both the craniocaudal and ?? mediolateral oblique views along with computer-aided detection (CAD). ?? Synthesized 2D images are generated from the tomosynthesis. ? FINDINGS: ?? The breasts are almost entirely fatty (ACR BI-RADS breast composition ?? Category a). ? There are no significant masses, abnormal calcifications, or other ?? abnormalities. ? MM/MM tomosynthesis screening BI ?? IMPRESSION: ?? No mammographic evidence of malignancy. ? ASSESSMENT: ? BI-RADS BI-RADS 1 - Negative ? RECOMMENDATION: ?? Routine annual mammography screening. ? 1 year F/U ? This examination should not preclude the clinical evaluation of a ?? suspicious palpable abnormality. ? This patient's information was entered into a reminder system with a ?? target due date for their next mammogram. ? Dictated By: ?Grace Valladares MD ? Signed By: ?<Electronically signed by Grace Valladares MD in OV> ? 08/12/23 0544 ? DD/ 0912 ? TD/TT: ? Pocket Grinder Operator: ? Procedure Note Donmelani, Image - 08/12/2023 [facility] [address] [place] [address] Mammography Report Signed Patient: Aura Conti MR#: [id number] : 1975Acct:[id number] Age/Sex: 47 / FADM Date: 07/31/23 Loc: HO.MAMMO Attending Dr: Beth Gomez MD Ordering Physician: Beth Donnelly MDResults: 1Negative Date of Service: 07/31/23Follow Up: 1 Year From Orig inal Mammogram Procedure(s): MM tomosynthesis screening BI Accession Number(s): [id number] cc: Beth Donnelly MD EXAMINATION: MM SCREENING DIGITAL BREAST TOMOSYNTHESIS, BILATERAL CLINICAL INFORMATION: Screening. Asymptomatic. COMPARISON: Mammography: This study is compared with prior exams dating back to 2019. TECHNIQUE: Digital breast tomosynthesis is performed in both the craniocaudal and mediolateral oblique views along with computer-aided detection (CAD). Synthesized 2D images are generated from the tomosynthesis. FINDINGS: The breasts are almost entirely fatty (ACR BI-RADS breast composition Category a). There are no significant masses, abnormal calcifications, or other abnormalities. MM/MM tomosynthesis screening BI IMPRESSION: No mammographic evidence of malignancy. ASSESSMENT: BI-RADS BI-RADS 1 - Negative RECOMMENDATION: Routine annual mammography screening. 1 year F/U This examination should not preclude the clinical evaluation of a suspicious palpable abnormality. This patient's information was entered into a reminder system with a target due date for their next mammogram. Dictated By: Grace Valladares MD Signed By: <Electronically signed by Grace Valladares MD in OV> 08/12/2344 DD/ 1 TD/TT: Pocket Grinder Operator: us Beth Gomez MD IMG BI PROCEDURES Fin al Result * (ABNORMAL) Lipid Panel, Standard (01/30/2023 9:26 AM EDT) Triglycerides 106 <150 mg/dL [facility] Comment:Desirable Triglyceri de: less than 150 mg/dLBorderline High Triglyceride 150-199 mg/dLHigh Triglyceride: 200-499 mg/dLVery High Triglyceride: greater than or equal to 5OO mg/dL Cholesterol 216(H) <200 mg/dL [facility] Comment:Desirable Cholestero l: less than 200 mg/dLBorderline High Cholesterol: 200-239 mg/dLHigh Cholesterol: greater than 239 mg/dL LDL Cholesterol Calculated 143(H) <100 mg/dL [facility] Comment:Desirable LDL: less than 100 mg/dLNear Optimal/Above Optimal LDL: 110- 129 mg/dLBorderline High LDL: 130-159 mg/dLHigh LDL: 160-189 mg/dLVery High LDL: greater than or equal to 190 mg/dL HDL Cholesterol 52 >40 mg/dL [facility] Comment:Desirable HDL: great er than 40 mg/dL Note: This HDL assay may give artificially low results in patients with liver disease. Blood Venous blood specimen / Unknown 01/30/2023 9:26 AM EDT 01/30/2023 9:26 AM EDT us Beth Gomez MD LAB BLOOD ORDERABLES Final Result Performing Organization Address City/[facility]/ZIP Co de Phone Number [facility] [address] [place] [phone] * HPV mRNA E6/E7 (07/20/2019 10:16 AM EST) HPV mRNA E6/E7 Not Detected NOT DETECTED [facility] Comment: This test was performed using the APTIMA(R) HPV Assay ([employer] This assay detects E6/E7 viral messenger RNA (mRNA) from 14 high-risk HPV types (16,18,31,33,35,39,45,51, 52,56,58,59,66,68). For additional information please refer to: http://education.Marblar/faq/SEV656p9 (This link is being provided for informational/ educational purposes only.) The analytical performance characteristics of this assay have been determined by [employer] [place], [place]. The modifications have not been cleared or approved by the FDA. This assay has been validated pursuant to the CLIA regulations and is used for clinical purposes. Test Performed by [facility], [facility], [address] [place] [address] Eusebio Varma M.D., Ph.D., Director of Laboratories , CLIA [id number] Please note: ??Effective 02/10/2016, HPV testing will be performed using [employer]'s APTIMA test which targets mRNA. Detecting mRNA instead of DNA, as in older methods, offers significant improvements in specificity. 07/20/2019 10:1 6 AM EST us Beth Gomez MD HISTORICAL/NON ORDERA BLE LABS Final Result [facility] [address] * HIV AB/AG (06/24/2019 9:00 AM EST) HIV AG/AB NONREACTIVE [facility] Comment: HIV-1 p24 Ag and/or HIV-1/HIV-2 Ab not detected. ?? A test result that is nonreactive does not exclude the possibility of exposure to or infection with HIV-1 and/or HIV-2. Nonreactive results in this assay for individuals with prior exposure to HIV-1 and/or HIV-2 may be due to antigen and antibody levels that are below the limit of detection of this assay. ?? The [employer] HIV Ag/Ab Combo assay result and supplemental assay results should be interpreted in conjunction with the patient's clinical presentation, history and other laboratory results. ??If the results are inconsistent with clinical evidence, additional testing is suggested to confirm the result. 06/24/2019 9:00 AM EST Beth Gomez MD HISTORICAL/NON ORDERA BLE LABS Final Result [facility] [address] from Last 3 Months or Most Recently Relevant to Health Maintenance Insurance DENTAL - HSN PARTIAL (MEDICAID) Care Teams Contact Center Engineer Relationship Specialty Start Date End Date Beth Donnelly MD [address] [place] [phone] PCP - General Family Medicine 05/01/19
--- OUTSIDE RECORDS SUMMARY | 2024-08-10 16:25 | XMS_ITS | Clinical Summary ---
Author Organization [facility] it Address [address] [place] [address] Care Team Providers Care Tool Specialist Name Role Phone Frankie Ambriz MD Primary Care Provider [phone] Social History Tobacco Use Types Packs/Day Years Used Date Smoking Tobacco: Never Assessed Comments Unknown Sex and Gender Information Value Date Recorded Sex Assigned at Not on file Legal Sex Female 7:33 PM EST Gender Identity Not on file Sexual Orientation Not on file Plan of Treatment Health Maintenance Due Date Last Done Comments Breast Cancer Screening 1974 DTaP,Tdap,and Td Vaccines (1 - Tdap) 1993 Hepatitis B Vaccines (1 of 3 - 19+ 3-dose series) 1993 Cervical Cancer Screening: P ap Smear 08/20/1995 Colorectal Cancer Screening: Colonoscopy 05/02/2022 Depression Screening 05/02/2022 HIV Screening 05/02/2022 Hepatitis C Screening 05/02/2022 Social Influencers of Health Screening 05/02/2022 COVID-19 Vaccine (2023-2 5 season) 2024 Influenza Vaccine (#1) 2024 HIB Vaccines Aged Out No longer eligi [...] on patient's age to complete this topic MMR Vaccines Aged Out No longer eligi ble based on patient's age to complete this topic Meningococcal ACWY Vaccine Aged Out N o longer eligible based on patient's age to complete this topic Meningococcal B Vacine Aged Out No lo nger eligible based on patient's age to complete this topic Pneumococcal Vaccine: Pediat rics (0 to 5 Years) and At-Risk Patients (6 to 64 Years) Aged Out No longer eligible b ased on patient's age to complete this topic RSV Immunization Patients Un shabbir 20 months Aged Out No longer eligible b ased on patient's age to complete this topic Varicella Vaccines Aged Out No longer eligible based on patient's age to complete this topic Care Teams Tool Specialist Relationship Specialty Start Date End Date Frankie Ambriz MD PCP - General Gastroenterology 11/25/16
--- OUTSIDE RECORDS SUMMARY | 2024-08-10 16:25 | XMS_ITS | Encounter Summary ---
Author Organization [employer] Address [address] [place] [address] Care Team Providers Care Briquette Molder Name Role Phone Beth Donnlely MD Primary Care Provide r Reason for Visit * Reason Onset Date Comments No Show 07/13/2024 Encounter Details Date Type Department Care Team ([facility] st Contact Info) Description 07/13/2024 Telephone [facility] MED[facility]INE [address], [place] [phone] Beth Donnelly MD [address] [place] [address] No Show Social History Tobacco Use Types Packs/Day Years [...] AM EDT documented as of this encounter Miscellaneous Notes * Telephone Encounter - Amy Cornejo - 07/13/2024 11:51 AM EST Pt no showed to appt on 07/13/24 documented in this encounter Plan of Treatment Upcoming Encounters Date Type Department Care Team (Late st Contact Info) Description 08/24/2024 10:15 AM EDT Procedure Visit [facility] MED[facility] [address] [place] [phone] Beth Donnelly MD [address] [place] [address] 09/01/2024 2:45 PM EDT Office Visit [facility] MED[facility] [address] [place] [address] Beth Donnelly MD [address] [place] [phone] 01/30/2025 3:00 PM EDT Office Visit [facility] ADULT DENTAL [address] [place] [address] Alma Tellez documented as of this encounter Visit Diagnoses Not on filedocumented in this encounter Additional Health Concerns Assessment Noted Time PHQ-9 Depression Total Score: 0 01/21/20 23 3:27 PM EDT documented as of this encounter Care Teams Briquette Molder Relationship Specialty Start Date End Date Beth Donnelly MD [address] [place] [address] PCP - General Family Medicine 05/01/19 documented as of this encounter
--- OUTSIDE RECORDS SUMMARY | 2024-08-10 16:25 | XMS_ITS | Encounter Summary ---
Author Organization [facility] Address [address] [place] [address] Care Team Providers Care Table Machine Operator Name Role Phone Beth Donnelly MD Primary Care Provide r Encounter Details Date Type Department Care Team (Late st Contact Info) Description 04/22/2022 Abstract [facility] ADULT DENTAL [address] [place] [phone] Dental, Provider, DDS Social History Tobacco Use [...] Description 08/24/2024 10:15 AM EDT Procedure Visit [facility] MEDICINE [address] [place] [phone] Beth Donnelly MD [address] [place] [address] 09/01/2024 2:45 PM EDT Office Visit [facility] MED[facility] [address] [place] [address] Beth Donnelly MD [address] [place] [address] 01/30/2025 3:00 PM EDT Office Visit [facility] ADULT DENTAL [address] [place] [address] Alma Tellez documented as of this encounter Procedures Procedure Name Priority Date/Time Associated Diagnosis Comments 21 O COMPOSITE FILLING Routine 04/22/2022 12:00 AM EST 5 O COMPOSITE FILLING Routine 04/22/2022 12:00 AM EST 4 O COMPOSITE FILLING Routine 04/22/2022 12:00 AM EST 19 MOD AMALGAM FILLING Routine 04/22/2022 12:00 AM EST 31 MODB AMALGAM FILLING Routine 04/22/2022 12:00 AM EST 30 AMALGAM FILLING Routine 04/22/2022 12:00 AM EST 20 O AMALGAM FILLING Routine 04/22/2022 12:00 AM EST 18 DO AMALGAM FILLING Routine 04/22/2022 12:00 AM EST 15 O AMALGAM FILLING Routine 04/22/2022 12:00 AM EST 14 LO AMALGAM FILLING Routine 04/22/2022 12:00 AM EST 3 LO AMALGAM FILLING Routine 04/22/2022 12:00 AM EST 2 O AMALGAM FILLING Routine 04/22/2022 12:00 AM EST documented in this encounter Visit Diagnoses Not on filedocumented in this encounter Care Teams Table Machine Operator Relationship Specialty Start Date End Date Beth Donnelly MD [address] [place] [address] PCP - General Family Medicine 05/01/19 documented as of this encounter
--- OUTSIDE RECORDS SUMMARY | 2024-08-10 16:25 | XMS_ITS | Encounter Summary ---
Author Organization [employer] Address [address] [place] [address] Care Team Providers Care Materials And Corrosion Engineer Name Role Phone Beth Donnelyl MD Primary Care Provide r Encounter Details Date Type Department Care Team (Latest Contact Info) Description 07/28/2021 Abstract [facility] CONVERSIONS Dental, Provider, DDS Social History Tobacco [...] Description 08/24/2024 10:15 AM EDT Procedure Visit [facility] MEDICINE [address] [place] [phone] Beth Donnelly MD [address] [place] [phone] 09/01/2024 2:45 PM EDT Office Visit [facility] MEDICINE [address] [place] [address] Beth Donnelly MD [address] [place] [address] 01/30/2025 3:00 PM EDT Office Visit [facility] [address] [place] [address] Alma Tellez documented as of this encounter Visit Diagnoses Not on filedocumented in this encounter Care Teams Materials And Corrosion Engineer Relationship Specialty Start Date End Date Beth Donnelly MD [address] [place] [address] PCP - General Family Medicine 05/01/19 documented as of this encounter
[2024-09-05 09:08] VITALS: BMI 42.6
--- NOTE | 2024-09-06 08:31 | HO.ANESPROP2 ---
Documented by User: Nena Weinstein NP 10/11/24 10:32 HPI - Anesthesia Eval Consult details Narrative: 49yo F for Upper Endoscopy and Colonoscopy, 10/12/24 [facility] Active Problems Active Problems: All Active Problems GERD (gastroesophageal reflux disease) (Acute) Regurgitation of food (Acute) Change in bowel habit (Acute) Hyperlipidemia (Acute) Dysphagia (Acute) Myofascial neck pain (Acute) Tendonitis of left rotator cuff (Acute) JIM positive (Acute) Past Medical History Medical History Angioedema Chronic low back pain Urinary incontinence Pain in joint, multiple sites Fatigue JIM positive Family History Family History Mother JIM positive Arthritis Surgical History Surgical History History of esophagogastroduodenoscopy (EGD) H/O foot surgery Social History Social History Household Members: Spouse and Children Are you a primary health care marketing specialist to a significant other at home: No Do you presently have visiting nurse or other home services: No Alcohol intake: current Alcohol intake frequency: holidays/special occasions only Alcohol type: wine Patient Tobacco Use Status: Never used Tobacco Have you been hit, kicked, punched, or otherwise hurt by someone within the past year? 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 Allergies Allergy/AdvReac Type Severity Reaction Status Date / Time aspirin Allergy Unknown bruising Verified 10/12/24 08:40 Home Medications ?Medication ?Instructions ?Recorded ?Confirmed ?Last Taken ?Type acetaminophen 325 mg tablet 325 mg PO QID PRN Pain 06/12/24 09/05/24 Unknown History (Tylenol) Exam Height,Weight and Vital Signs: Height 5 ft 3 in Weight 109 kg Pertinent Lab Results Pertinent Lab Results: Laboratory Tests 09/13/24 09:28 WBC 6.9 Hgb 15.1 Hct 45.3 Plt Count 281 Sodium 139 Potassium 3.7 Chloride 106 Carbon Dioxide 24 BUN 14 Creatinine 0.73 Assessment and Plan Assessment Anesthesia Assessment: Chart Reviewed Documented by User: Dhruv Stover MD 10/12/24 08:53 [facility] Past Medical History Medical History Angioedema Chronic low back pain Urinary incontinence Pain in joint, multiple sites Fatigue JIM positive Functional capacity: independent ambulation Patient : No Family History Family History Mother JIM positive Arthritis Family history of problems with anesthesia: No Surgical History Surgical History History of esophagogastroduodenoscopy (EGD) H/O foot surgery History of Problems with Anesthesia: No Social History Social History Household Members: Spouse and Children Are you a primary health care marketing specialist to a significant other at home: No Do you presently have visiting nurse or other home services: No Alcohol intake: current Alcohol intake frequency: holidays/special occasions only Alcohol type: wine Patient Tobacco Use Status: Never used Tobacco Have you been hit, kicked, punched, or otherwise hurt by someone within the past year? 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 Meds Allergies Allergy/AdvReac Type Severity Reaction Status Date / Time aspirin Allergy Unknown bruising Verified 10/12/24 08:40 Home Medications ?Medication ?Instructions ?Recorded ?Confirmed ?Last Taken ?Type acetaminophen 325 mg tablet 325 mg PO QID PRN Pain 06/12/24 09/05/24 Unknown History (Tylenol) Exam Airway Mallampati Class: II TM Dist: >3cm Neck ROM: Full Loose/Missing/Broken Teeth: No Heart: rrr Lungs: cta Assessment and Plan Final Anesthetic Review Family History of Problems with Anesthesia: No History of Problems with Anesthesia: No NPO: Yes ASA Class: II Final Preanesthetic Review: No Changes in Pt Med Stat, Meds/Allgs Chart Reviewed, Consent Obtained/Reviewed and Anes Risks/Benef Reviewed Patient Risk: Low Procedure Risk: Low Anesthetic Plan Anesthetic Plan: MAC: Disposition: Standard PACU
[2024-10-12] MEDS: Lactated Ringers 1,000 ML 100 ML IVCONT (08:31)
[2024-10-12 08:42] LABS: UPreg QC Valid YES; Urine Pregnancy NEGATIVE (NEGATIVE)
[2024-10-12 08:46] VITALS: BP 134/67; PULSE 90; RESP 18; TEMP 36.7; O2SAT 100
--- NOTE | 2024-10-12 09:04 | MHC.SHP ---
Pre-Procedural Eval Section A - 24 Hr Update-Section A only Date of Service: 10/12/24 Section B - Complete if H&P > 30 days Chief Complaint: Change in bowel habit,dysphagia Details of Present Illness: Angioedema Chronic low back pain Urinary incontinence Pain in joint, multiple sites Fatigue JIM positive Surgical History History of esophagogastroduodenoscopy (EGD) H/O foot surgery No history of previous surgery Present Medications: see Short Stay Collaborative assessment Allergies: Allergies Allergy/AdvReac Type Severity Reaction Status Date / Time aspirin Allergy Unknown bruising Verified 10/12/24 08:40 Review of Systems Review of Systems Comment: Ten point ROS negative Exam Exam Comment: Gen appear: No acute distress HEENT: no icterus Chest: No overt resp distress Abd: soft, nontender, nondistended Psych: Stable affect, answering questions appropriately Neuro: A/Ox3 noted to move all extremities spontaneously Ext: no peripheral edema Plan Diagnosis/Plan: Unchanged I have reviewed the history and physical and performed a pertinent physical examination on my patient. No changes have occurred unless specified. Time Spent With Patient Time: Total time managing care of this patient today ____ minutes.
--- NOTE | 2024-10-12 09:54 | P.OPN-COLO_ITS ---
Colonoscopy Operative Note Operative Note Date of Service: 10/12/24 Narrative: Procedure: Upper endoscopy and colonoscopy Indication: Abd pain, dysphagia, change in bowel habits Endoscopist: Angeles Walker MD Anesthesia Provider: Jordyn Mera CRNA Anesthesia type: MAC Instrument: GIF-H190 and PCF-H190L EGD Procedure:?? The procedure, indications, preparation and potential complications were reviewed with the patient, who indicated understanding and gave written informed consent to proceed. The endoscope was introduced through the mouth, and advanced to the 2nd part of the duodenum. The mucosa was carefully examined on slow withdrawal of the endoscope. The patient tolerated the procedure well. There were no immediate complications.? EGD Findings:? * Esophagus:? Normal esophageal mucosa was noted. The Z-line was at 35 slightly displaced upwards with the diaphragmatic pinch at 36 cm. Cold forceps biopsies were taken from middle and lower esophagus to rule out eosinophilic esophagitis. * Stomach:? Normal gastric mucosa. Retroflexion was performed in the cardia. Random cold forceps biopsies were taken from the stomach. * Duodenum:? Mild erythema and edema of duodenal bulb. Cold forceps biopsies were taken from the duodenal bulb and 2nd portion of the duodenum to rule out celiac sprue. Additional intervention: Soft tip Savary wire was introduced through the biopsy channel of the gastroscope and advanced to the antrum. ?The gastroscope was then backed out. ?Savary Diogenes bougie was advanced over the guidewire and the esophagus was dilated to 18 mm with resistance felt. ?On relook, mild heme was n oted at 15 cm confirming successful dilation. ? Colonoscopy Procedure:? The patient was then turned for the colonoscopy. A digital rectal exam was performed which was normal.? A distal attachment cap was affixed to the tip of the scope and the colonoscope was then inserted through the anus and advanced through the colon and advanced to the cecum at 70 cm and terminal ileum.? Appendiceal orifice and ileocecal valve were identified. Mucosa was carefully examined under high definition white light as the instrument was slowly withdrawn in a retrograde panoramic fashion. Retroflexion was performed in ascending colon and rectum. The procedure was not difficult. The quality of the prep was BBPS: 2+3+3 = adequate Withdrawal time 7 minutes Limitations: No limitations Findings: Mucosa: Normal colon and terminal ileum mucosa. Cold forceps biopsies were taken from right and left side of the colon to rule out microscopic colitis. Protruding lesions: * Small internal hemorrhoids without stigmata of recent bleeding. Excavated lesions: * Mild diverticulosis in the sigmoid colon. Impression: 1. Cricopharyngeal stenosis (dilation) 2. Normal esophageal mucosa (biopsy) 3. Hiatal hernia 4. Normal stomach (biopsy) 5. Duodenitis (biopsy) 6. Normal colon and terminal ileum mucosa (biopsy) 7. Diverticulosis 8. Internal hemorrhoids Recommendations:?? * Follow-up path results * Avoid NSAIDs * H Pylori treatment if biopsies + * EGD was done off ppi. Resume famotidine daily x 8-12 weeks for duodenitis. * Repeat colonoscopy for asymptomatic CRC screening in 10 years.
[2024-10-12 09:56] VITALS: BP 119/75; PULSE 83; RESP 14; TEMP 36.4; O2SAT 99
[2024-10-12 10:01] VITALS: BP 106/65; PULSE 75; RESP 14; O2SAT 99
[2024-10-12 10:05] VITALS: BP 118/77; PULSE 79; RESP 18; O2SAT 99
[2024-10-12 10:20] VITALS: BP 120/78; PULSE 80; RESP 18; TEMP 36.6; O2SAT 99
[2024-10-12] MEDS: Acetaminophen 325 MG TABLET 975 MG PO (10:34)
[2024-10-12] MEDS: Mag&Al/Sim/Diphenhyd/Lidocaine 10 ML ORAL.SUSP PO (10:34)
== END 2024-10-12 11:10 | disposition home or self-care (01) ==
PROVIDERS: Nurse Practitioner; PCP Internal Medicine; Visit Provider Internal Medicine
PROC: (CPT 45380; principal; 2024-10-12 10:20)
DX: R19.4 Change in bowel habit (principal); K64.8 Other hemorrhoids; K57.30 Diverticulosis of large intestine without perforation or abscess without bleeding; K22.9 Disease of esophagus, unspecified; K29.80 Duodenitis without bleeding; K44.9 Diaphragmatic hernia without obstruction or gangrene; R13.10 Dysphagia, unspecified; R11.10 Vomiting, unspecified; K21.9 Gastro-esophageal reflux disease without esophagitis; E78.5 Hyperlipidemia, unspecified
CPT/HCPCS: 45380; 43248; 43239; 81025; 88305; 88313; C1769; J2003; J2250; J2704

== ENCOUNTER → 2024-10-12 07:54 | Outpatient (BNV) | payer OTHER, SELFPAY | PROVIDERS: PCP Internal Medicine; Visit Provider Internal Medicine | DX: R13.10 Dysphagia, unspecified (principal); J39.2 Other diseases of pharynx; R10.9 Unspecified abdominal pain; R19.4 Change in bowel habit; K57.30 Diverticulosis of large intestine without perforation or abscess without bleeding; K64.8 Other hemorrhoids | CPT/HCPCS: 43239; 43248; 45380 ==

== ENCOUNTER 2024-12-04 13:43 | Outpatient (AMB) | payer OTHER, SELFPAY ==
--- NOTE | 2024-12-04 13:46 | MHC.OFFVIS ---
Vital Signs 12/04/24 13:49 Height 5 ft 3 in Weight 231 lb 7.766 oz BMI 41.0 BP 124/76 Blood Pressure Location Lt brachial Position Sitting Pulse 83 Intake Visit Reasons: f/u double Intake Note: Aura presents in the office as a follow up EGD and COLO. CC: She states that after procedure she had a pain in the left side of her face. She states that she does not have the pains but her teeth are sensitive on the left side. She had the dentist check because the pain is too much. Crisis Clinician Required: No Allergies aspirin Allergy (Unknown, Verified 12/04/24 13:50) bruising HPI Comments Details: 48 y.o F with longstanding hx of reflux sx. Describes this as burning sensation coming up to her throat. Has regurgitation occasionally. Sometimes also has sensation of food stuck in throat, has to neisha with liquids. Sx occur at least once a month. Takes PPI as needed. EGD done more than 10 years ago in [place]. Additionally, also has constipation. Reprots for hte past 4-5 years also has been having liquid/mushy stools. NO blood in stool. No unintentional weight loss. No fam hx of CRC. Mother has breast ca. 10/12/24: EGD/colo 1. Cricopharyngeal stenosis (dilation) 2. Normal esophageal mucosa (biopsy) 3. Hiatal hernia 4. Normal stomach (biopsy) 5. Duodenitis (biopsy) 6. Normal colon and terminal ileum mucosa (biopsy) 7. Diverticulosis 8. Internal hemorrhoids Path: A. Duodenum, biopsy: Duodenal mucosa within normal limits. B. Esophagus, lower, biopsy: - Cardiac-type mucosa with moderate chronic inactive inflammation; no intestinal metaplasia seen. - Squamous epithelium within normal limits. C. Esophagus, middle, biopsy: Squamous epithelium within normal limits; no inflammation seen. D. Colon, right, biopsy: Colonic mucosa within normal limits. E. Colon, left, biopsy: Colonic mucosa within normal limits. 12/04/24: Here for post procedure follow up. Reports post-procedural jaw pain x 2 weeks. Did not have any external signs such as redness or swelling. She even consulted dentist, no findings. Pain possibly anesthesia-related. Otherwise dysphagia is now resolved. EGD and colo findings reviewed. Bx normal. Mainly here for obesity management. Has started seeing a pick and shovel man through [facility] and has been started on phenteramine without any significant response. Interested in referral for bariatric program. [facility] Medical History (Updated 12/04/24 @ 14:15 by Angeles Walker MD) Angioedema Chronic low back pain Urinary incontinence Pain in joint, multiple sites Fatigue JIM positive Surgical History (Updated 12/04/24 @ 13:49 by TRUDY Alicia) Hx of colonoscopy History of esophagogastroduodenoscopy (EGD) H/O foot surgery Family History Mother JIM positive Arthritis Social History Household Members: Spouse and Children Are you a primary care management coordinator to a significant other at home: No Do you presently have visiting nurse or other home services: No Alcohol intake: current Alcohol intake frequency: holidays/special occasions only Alcohol type: wine Patient Tobacco Use Status: Never used Tobacco Current occupational status: employed 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, 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 No endoscopic or histological evidence of gerd. Can cont pepcid PRN for heartburn. Pt also interested in bariatric program referral. Plan: - Continue Pepcid, adjust diet for reflux. - Bariatric program referral made - Repeat colo in 10 years for asymptomatic colorectal ca screening PRN follow up Orders: Referrals Bariatric Surgery Referral E66.01 - Morbid (severe) obesity due to excess calories Coding Level of Care Code Est Pt Level 3 (58778) Diagnoses Obesity, morbid, BMI 40.0-49.9 E66.01 Dysphagia R13.10 Change in bowel habit R19.4
[2024-12-04 13:49] VITALS: BP 124/76; PULSE 83; BMI 41.0
--- OUTSIDE RECORDS SUMMARY | 2024-12-04 14:12 | XMS_ITS | Clinical Summary ---
Author Organization [facility] Address [address] [place] [address] Phone Care Team Providers Care A Class Lineman Name Role Phone Beth Donnelly MD Primary Care Provide r Allergies Active Allergy Reactions Criticality Noted Date Comments Ibuprofen Angioedema High 08/20/2024 Medications No known medications Active Problems No known active problems Encounters Date Type Department Care Team Description 11/27/2024 3:00 PM EDT Consult Orthopedic Surgery [facility] [address] [phone] Lisa Mir PA Calcific tendinitis of left shoulder (Primary Dx); Pain in left shoulder; Arthritis of left acromioclavicular joint from Last 3 Months Social History Tobacco [...] 72 08/20/2024 1:03 PM EDT Temperature 36.5 C (97.7 F) 08/20/2024 1:03 PM EDT Respiratory Rate 17 08/20/2024 1:03 PM EDT Oxygen Saturation 99% 08/20/2024 1:03 PM EDT Inhaled Oxygen Concentration - - Weight 109 kg (240 lb) 08/20/2024 9:21 AM EDT Height 160 cm (5' 3 ) 11/27/2024 3:09 PM EDT Body Mass Index 42.51 08/20/2024 9:21 AM EDT Plan of Treatment Health Maintenance Due Date Last Done Comments Breast Cancer Screening 1974 DTaP,Tdap,and Td Vaccines (1 - Tdap) 1993 Hepatitis B Vaccines (1 of 3 - 19+ 3-dose series) 1993 Colorectal Cancer Screening: Colonoscopy 05/02/2022 HIV Screening 05/02/2022 Hepatitis C Screening 05/02/2022 Social Influencers of Health Screening 05/02/2022 COVID-19 Vaccine (4 - season) 2024 04/28/2021, 07/26/2020, 07/05/2020 Pneumococcal Vaccine: 50+ Years (1 of 1 - PCV) 2024 Zoster Vaccines (2 of 2) 11/22/2024 09/27/2024 Influenza Vaccine (#1) 2025 , 09/09/2021, 03/27/2020, Additional history exists Depression Screening 09/04/2025 09/04/2024 Hypertension/CHF/CAD Annual BMP Blood Test 09/13/2025 09/13/2024, 08/20/2024 Cervical Cancer Screening: Pap Smear 08/25/2027 08/24/2024 Cholesterol Screening (Lipid Panel) 09/13/2029 09/13/2024, 01/30/2023 HIB Vaccines Aged Out No longer eligi [...] 5 Years) and At-Risk Patients (6 to 49 Years) Aged Out No longer eligible based on patient's age to complete this topic RSV Immunization Patients Under 20 months Aged Out No longer eligible based on patient's age to complete this topic Varicella Vaccines Aged Out No longer eligible based on patient's age to complete this topic Procedures Procedure Name Priority Date/Time Associated Diagnosis Comments XR SHOULDER 2+ VIEWS LEFT Routine 11/27/2024 3:05 PM EDT Pain in left shoulder BASIC METABOLIC PANEL STAT 08/20/2024 11:37 AM EDT from Last 3 Months or Most Recently Relevant to Health Maintenance Results * XR Shoulder 2+ Views Left (11/27/2024 3:05 PM EDT) Anatomical Region Laterality Modality Upper Extremities, Shoulder Left Comp uted Radiography Narrative 11/27/2024 3:07 PM EDT 4 view x-rays of the left shoulder done today showed no acute fracture or dislocation. There is moderate to severe degenerative changes at the acromioclavicular joint. No major degenerative changes at the glenohumeral joint. There is evidence of radiopaque density superior to the greater tuberosity consistent with calcific tendinitis. Impression: Moderate to severe degenerative changes at the AC joint, evidence of calcific tendinitis Lisa TRUJILLO IM XR PROCEDURES Final Result * (ABNORMAL) Basic metabolic panel (08/20/2024 11:37 AM EDT) Sodium 136 133 - 145 mmol/L LAB CHEMISTRY METHOD 08/20/2024 12:38 PM EDT [facility] Potassium 4.3 3.5 - 5.5 mmol/L LAB CHEMISTRY METHOD 08/20/2024 12:38 PM EDT [facility] Chloride 105 96 - 110 mmol/L LAB CHEMISTRY METHOD 08/20/2024 12:38 PM EDT [facility] CO2 27 21 - 32 mmol/L LAB CHEMISTRY METHOD 08/20/2024 12:38 PM EDT [facility] Anion Gap 4 3 - 11 LAB CHEMISTRY METHOD 08/20/2024 12:38 PM T [facility] Glucose 101(H) 70 - 100 mg/dL LAB CHEMISTRY METHOD 08/20/2024 12:38 PM T [facility] BUN 12 5 - 25 mg/dL LAB CHEMISTRY METHOD 08/20/2024 12:38 PM EDT [facility] Creatinine 0.70 0.50 - 1.10 mg/dL LAB CHEMISTRY METHOD 08/20/2024 12:38 PM EDT [facility] eGFR 106 >=60 mL/min/1. 73m2 LAB CHEMISTRY METHOD 08/20/2024 12:38 PM T [facility] Comment:Calculation based on the Chronic Kidney Disease Epidemiology Collaboration (CKD-EPI) equation refit without adjustment for race. BUN/Creatinine Ratio 17.1 LAB CHEMISTRY METHOD 08/20/2024 12:38 PM T [facility] Calcium 10.0 8.5 - 10.5 mg/dL LAB CHEMISTRY METHOD 08/20/2024 12:38 PM [facility] Blood Venous blood specimen / Unknown Venipuncture / Unknown 08/20/2024 11:37 AM EDT 08/20/2024 12:09 PM EDT Reynold Nugent PA LAB BLOOD ORDERABLES Final Resul t [facility] [address] [place] [address], from Last 3 Months or Most Recently Relevant to Health Maintenance Insurance [facility] [employer] Care Teams A Class Lineman Relationship Specialty Start Date End Date Beth Donnelly MD [address] [place] [phone] PCP - General Internal Medicine 10/05/24
--- OUTSIDE RECORDS SUMMARY | 2024-12-04 14:12 | XMS_ITS | Clinical Summary ---
Author Organization [employer] Address [address] [place] [address] 7 [place] [address] Care Team Providers Care Adult Basic Education Teacher Name Role Phone Beth Donnelly MD Primary Care Provide r Allergies Active Allergy Reactions Criticality Noted Date Comments Aspirin 02/18/2016 Other reaction(s): Bruising Ibuprofen 12/03/2023 Prednisone 11/23/2017 Other reaction(s): Rash, Rash Medications * This document contains information received from the source organization and may not represent a complete record from that organization. methocarbamol (Robaxin) 750 MG tabletIndications :Chronic midline low back pain with left-sided sciatica Take 1 tablet (750 mg) by mouth 4 times daily for 10 days. 40 tablet 4 Active losartan-hydroCHL OROthiazide (Hyzaar) 50-12.5 MG tabletIndications :Uncontrolled hypertension Take 1 tablet by mouth Once per day. 30 tablet 11 5 08/25/19 26 Active Blood Pressure Monitoring (Blood Pressure Cuff) miscIndications:U ncontrolled hypertension 1 each Once daily. 1 each 5 Active famotidine (Pepcid) 20 MG tabletIndications :Gastroesophageal reflux disease, unspecified whether esophagitis present Take 1 tablet (20 mg) by mouth 2 times daily. 60 tablet 11 5 10/18/19 26 Active phentermine 15 MG capsuleIndication s:Class 3 severe obesity due to excess calories with serious comorbidity and body mass index (BMI) of 40.0 to 44.9 in adult Take 1 capsule (15 mg) by mouth before breakfast. 30 capsule 1 5 12/17/19 25 Active topiramate (Topamax) 25 MG tabletIndications :Class 3 severe obesity due to excess calories with serious comorbidity and body mass index (BMI) of 40.0 to 44.9 in adult Take 1 tablet (25 mg) by mouth Once per day. 30 tablet 1 5 10/18/19 26 Active acetaminophen (Tylenol 8 Hour) 650 MG ER tabletIndications :Impacted third molar tooth,Pain, dental Take 1 tablet (650 mg) by mouth every 8 (eight) hours if needed for mild pain. Do not crush, chew, or split. 30 tablet 5 Active amoxicillin (Amoxil) 500 MG capsuleIndication s:Impacted third molar tooth,Pain, dental Take 1 capsule (500 mg) by mouth every 8 (eight) hours for 7 days. 21 capsule 5 11/07/19 25 Active Problems Problem Noted Date Diagnosed Date Impacted third molar tooth 10/30/2024 Pain, dental 10/30/2024 Palpitations 09/01/2024 Assessment & Plan (09/01/2024 4:41 [...] Anxiety with depression 09/01/2024 Assessment & Plan (10/17/2024 4:37 PM EDT): Continue to follow with therapist We will reassess the necessity of medication on next appointments Assessment & Plan (09/01/2024 4:41 PM EDT): Most likely LEE ANN landeros was called today Patient is also having vasomotor symptoms from menopause, I will prescribe her patient venlafaxine to treat both anxiety depression and menopausal symptoms Class 3 severe obesity due t o excess calories with serious comorbidity and body mass index (BMI) of 40.0 to 44.9 in adult 09/01/2024 Assessment & Plan (10/17/2024 4:37 PM EDT): Patient encouraged to continue with healthy diet and exercise I prescribed for her today phentermine 15 mg, side effects were reviewed with patient I also prescribed Topamax 25 mg daily and side effects were also reviewed with her I will follow-up with her in about 6 to 8 weeks in person to monitor her weight Tuberculosis screening 09/01/2024 Encounter for preventive care [...] GERD (gastroesophageal reflux disease) Assessment & Plan (10/17/2024 4:37 PM EDT): I advise patient to avoid NSAIDs, spicy and acid food, I advise to eat at the same time every day, I advise to elevate the head of the bed and take medications as prescribe Assessment & Plan (12/03/2023 1:18 PM EDT): [...] Encounters Date Type Department Care Team Description 10/30/2024 3:00 PM EDT Office Visit [facility] [address] [place] [phone] Lencho Peres DDS Impacted third molar tooth (Primary Dx); Pain, dental; Uncontrolled hypertension 10/20/2024 Telephone [facility] [address] [place] [phone] Beth Donnelly MD Medication Question 10/17/2024 2:30 PM EDT Telemedicine [address] [phone] Beth Donnelly MD Gastroesophageal reflux disease, unspecified whether esophagitis present; Anxiety with depression; Class 3 severe obesity due to excess calories with serious comorbidity and body mass index (BMI) of 40.0 to 44.9 in adult 10/17/2024 Travel 10/17/2024 Telephone [facility] [address] [place] [address] [phone] Chanel Hudson Offer additional support for services 10/12/2024 Orders Only GENERIC EXTERNAL DATA DEPARTMENT Provider, Generic External Data 10/09/2024 3:00 PM EDT Nutrition [facility] DIABETES/NUTRITION [address] [place] [phone] Class 3 severe obesity due to excess calories with serious comorbidity and body mass index (BMI) of 40.0 to 44.9 in adult 10/09/2024 Travel 10/09/2024 Telephone [facility] [address] [place] [phone] Beth Donnelly MD call back needed 09/27/2024 Refill [facility] [address] [place] [address] Beth Donnelly MD Anxiety with depression 09/13/2024 Telephone [facility] [address] [place] [phone] Beth Donnelly MD 09/05/2024 Orders Only [facility] External Provider, [facility] 09/05/2024 Telephone [facility] [address] [place] [address] Beth Donnelly MD Call Back Request from Last 3 Months Immunizations Immunization Administration Dates Next Due Influenza Injectable Quadriv alant Preservative Free IIV4 MDCK 09/09/2021,03/27/2020,04/01/2018 Influenza injectable quadriv alent preservative free 04/20/2019,03/21/2015 Influenza, seasonal, injecta ble, preservative free 03/02/2024 Zoster, Recombinant 09/27/2024 Social History Tobacco Use Types Packs/Day Years Used Date Smoking Tobacco: Never Passive Smoke Exposure: Never Smokeless Tobacco: Never Tobacco Cessation:Counseling Given: Not Answered Alcohol Use Standard Drinks/Week Comments Defer 0 (1 standard drink = 0.6 oz pur e alcohol) Depression Answer Date Recorded Patient Health Questionnaire-9 [...] Sign Reading Time Taken Comments Blood Pressure 132/74 10/30/2024 3:28 PM EDT Pulse 66 10/30/2024 3:28 PM EDT Temperature 36.2 C (97.2 F) 09/01/2024 2:44 PM EDT Respiratory Rate 15 09/01/2024 2:44 PM EDT Oxygen Saturation 96% 09/01/2024 2:44 PM EDT Inhaled Oxygen Concentration - - Weight 110 kg (243 lb) 10/10/2024 11:42 AM EDT Height 160 cm (5' 3 ) 10/10/2024 11:42 AM EDT Body Mass Index 43.05 10/10/2024 11:42 AM EDT Plan of Treatment Upcoming Encounters Date Type Department Care Team (Late st Contact Info) Description 12/06/2024 3:00 PM EDT Nurse Only [facility] [address] [place] [phone] 01/30/2025 3:00 PM EDT Office Visit [facility] [address] [place] [address] Alma Tellez Health Maintenance Due Date Last Done Comments CT Colonography 1975 Colonoscopy 1975 Colorectal Cancer Screening 1975 FIT DNA/Cologuard 1975 FIT 1975 FOBT 1975 Sigmoidoscopy 1975 Disability Screening 1974 Family Planning (PISQ) 1989 Hepatitis C Screening 1992 DTaP/Tdap/Td Vaccines (1 - Tdap) 1993 Hepatitis B Vaccines (1 of 3 - 19+ 3-dose series) 1993 COVID-19 Vaccine (4 - 2023- season) 2024 04/28/2021, 07/26/2020, 07/05/2020 Pneumococcal Vaccine: 50+ Years (1 of 1 - PCV) 2024 SDOH Screening 11/22/2024 11/23/2023 Zoster Vaccines (2 of 2) 11/22/2024 09/27/2024 Dental X-Ray: Bitewings 11/25/2024 11/25/19 24, 07/28/2021, 10/11/2018, Additional history exists Dental Oral Exam 01/23/2025 07/25/2024, , 07/28/2021, Additional history exists Dental Prophylaxis 01/23/2025 07/25/2024, 0 11/25/2023, 04/20/2022, Additional history exists Influenza Vaccine (#1) 2025 , 09/09/2021, 03/27/2020, Additional history exists Depression Monitoring 03/06/2025 09/04/2024, 025 Alcohol/Substance Use Screening 08/24/2025 08/24/2024 Mammogram 08/29/2025 08/29/2024, 03/0 07/2023, 07/25/2022, Additional history exists Tobacco Screening 10/30/2025 10/30/2024 Dental X-Ray: Full Mouth 11/01/2027 025, 07/28/2021, 02/18/2016 Cervical Cancer Screening 08/24/2029 HPV/Cotest 08/24/2029 08/24/2024, 07/20/2019 Pap Smear 08/24/2029 08/24/2024 Lipid Panel 09/13/2029 09/13/2024, 01/30/2023 RSV Patients and Patients Aged 60 years or older (1 - 1-dose 75+ series) 2049 HIV Screening Completed 06/24/2019 HIB Vaccines Aged Out No longer eligi [...] Procedure Name Priority Date/Time Associated Diagnosis Comments CASE PRESENTATION, DETAILED AND EXTENSIVE TREATMENT PLANNING Routine 10/30/2024 3:00 PM EDT PANORAMIC RADIOGRAPHIC IMAGE Routine 10/30/2024 3:00 PM EDT 20 LIMITED ORAL EVALUATION - PROBLEM FOCUSED Routine 10/30/2024 3:00 PM EDT HEMATOXYLIN AND EOSIN STAIN Routine 10/12/2024 9:38 AM EDT HCG, QL, URINE Routine 10/12/2024 8:30 AM EDT T-SPOT(R).TB Routine 09/13/2024 9:28 AM EDT Tuberculosis screening TSH W/REFLEX TO FT4 Routine 09/13/2024 9 :28 AM EDT Palpitations LIPID PANEL, STANDARD Routine 09/13/2024 9:28 AM EDT Primary hypertension CBC WITH AUTO DIFFERENTIAL Routine 09/13/2024 9:28 AM EDT Primary hypertension COMPREHENSIVE METABOLIC PANEL Routine 09/13/2024 9:28 AM EDT Primary hypertension FL ESOPHAGUS BARIUM SWALLOW Routine 09/05/2024 7:33 AM EDT BI MAMMOGRAM SCREENING TOMOSYNTHESIS BILATERAL Routine 08/29/2024 2:56 PM EDT HPV DNA, LOW/HIGH RISK Routine 08/24/2024 11:34 AM EDT PAP SMEAR Routine 08/24/2024 11:34 AM EDT Pap smear for cervical cancer screening PROPHYLAXIS - ADULT Routine 07/25/2024 1 :00 PM EST Dental plaque Dental calculus PERIODIC ORAL EVALUATION - ESTABLISHED PATIENT Routine 07/25/2024 1:00 PM EST Dental plaque Dental calculus Encounter for dental examination BITEWINGS - 4 RADIOGRAPHIC IMAGES Routine 11/25/2023 3:00 PM EDT ZZZ HISTORICAL HIV AB/AG Routine 06/24/2019 9:00 AM EST from Last 3 Months or Most Recently Relevant to Health Maintenance Results * Hematoxylin and Eosin Stain (10/12/2024 9:38 AM EDT) 10/12/2024 9:38 AM EDT 10/12/2024 10:40 AM EDT [facility] - 10/16/2024 11:37 AM EDT ----- ------- Name: Aura Childress Age/Sex: 49/F : 1975 Unit#: [id number] Attend Dr: Angeles Walker MD Re10/12/24 Status: [facility] Location: [facility] Disch: ----- ------- SPEC : [id number] RECD: 10/12/24 STATUS: SHANA MATHEWS NUM: [id number] KAREN: 10/12/[address] [facility] [address]: Angeles Walker MD ENTERED: 10/12/24 SP TYPE: Surgical OTHR DR: Beth Donnelly MD ORDERED: HE Stain/15, Gross Micro L4/5, Special st. 2/, AB/PAS/2 Diagnosis A. Duodenum, biopsy: Duodenal mucosa within normal limits. B. Esophagus, lower, biopsy: - Cardiac-type mucosa with moderate chronic inactive inflammation; no intestinal metaplasia seen. - Squamous epithelium within normal limits. C. Esophagus, middle, biopsy: Squamous epithelium within normal limits; no inflammation seen. D. Colon, right, biopsy: Colonic mucosa within normal limits. E. Colon, left, biopsy: Colonic mucosa within normal limits. Clinical History Pre-Op Dx: Change in bowel habit, dysphagia Post-Op Dx: UES stenosis 15 cm., duodenitis, diverticulosis Microscopic Description A-E. Microscopic sections examined. No metaplastic changes are seen, supported by AB/PAS stains (A and B) Material Received A. Duodenum bx's B. Lower esophagus bx's C. Middle esophagus bx's D. Right sided colon bx's E. Left sided colon bx's Gross Description Received in five parts. Part A: Received in formalin labeled duodenum bx's are 4 tsai-pink irregular tissue fragments ranging from 0.2-0.3 cm, submitted in toto in a cassette labeled A. Part B: Received in formalin labeled lower esophagus bx's are 4 swenson-tsai irregular and rectangular tissue fragments ranging from 0.2-0.35 cm, submitted in toto in a cassette labeled B. CONTINUED ON NEXT PAGE ----- ------- Name: Aura Childress/Sex: 49/[facility] 1975 [id number]#: [id number] Attend Dr: Angeles Walker MD Re10/12/24 Status: [facility] Location: [facility] Disch: ----- ------- SPEC : [id number] RECD: 10/12/24-0 STATUS: SHANA MATHEWS NUM: [id number] KAREN: 10/12/24-[address] [facility] [address]: Angeles Walker MD ENTERED: 10/12/24-1123 SP TYPE: Surgical OTHR DR: Beth Donnelly MD ORDERED: HE Stain/15, Gross Micro L4/5, Special st. 2/2, AB/PAS/2 Gross Description (Continued) Part C: Received in formalin labeled middle esophagus bx's are 2 swenson-pink irregular tissue fragments each measuring 0.25 cm, submitted in toto in a cassette labeled C. Part D: Received in formalin labeled right sided colon bx's are 2 tsai-pink irregular tissue fragments each measuring 0.35 cm, submitted in toto in a cassette labeled D. Part E: Received in formalin labeled left sided colon bx's are 3 tsai irregular and rectangular tissue fragments ranging from 0.25-0.4 cm, submitted in toto in a cassette labeled E. CEDS Special studies ordered and performed: AB/PAS stains on A and B Copies To: Beth Donnelly MD [address] [phone] Angeles Walker MD [facility] [address] [place] [phone] [email or web address] ------- Signed (signature on file) Enrike Huitron MD 10/16/24 1137 ----- ------- END OF REPORT Generic External Data Provider LAB BLOOD ORDERAB LES Final Result Performing Organization Address [facility] Co de Phone Number [facility] [address] [place] [phone] * HCG, Qualitative, Urine (10/12/2024 8:30 AM EDT) [facility] Urine NEGATIVE NEGATIVE [facility] Comment:This test was develo ped to detect early . Falsenegative results may occur after the 5th - 7th week ofpregnancy when using this test method. If clinicallyindicated, consider a serum hCG. 10/12/2024 8:30 AM EDT 10/12/2024 8:36 AM EDT [employer] External Data Provider LAB URINE ORDERAB LES Final Result Performing Organization Address [facility] Co de Phone Number [facility] [address] [place] [phone] * T-SPOT??.TB (09/13/2024 9:28 AM EDT) Pathologist [facility] T Spot TB Negative Negative [facility] Comment:A negative test resu lt does not exclude the possibilityof exposure to or infection with Mycobacteriumtuberculosis (M. tuberculosis). Patients with recentexposure to TB infected individuals exhibiting anegative T-SPOT.TB result should be considered forretesting within 6 weeks or if other relevant clinicalsymptoms indicate. Results from T-SPOT.TB testing mustbe used in conjunction with each individual'sepidemiological history, current medical status,and results of other diagnostic evaluations.The T-SPOT.TB test is qualitative and results arereported as positive, borderline, or negative, giventhat the test controls perform as expected. In linewith the Centers for Disease Control and Prevention's2010 recommendation to report quantitative measurementsalongside the qualitative result, the laboratoryprovides spot counts for informational purposes only.The T-SPOT.TB test should not be interpreted as aquantitative test. TS PANEL A 0 [facility] TS PANEL B 0 [facility] Negative Control Passed [facility] Positive Control Passed [facility] Comment:For additional infor jessica, please refer tohttp://education.Wello/faq/YKE994(This link is being provided for informational/educational purposes only.)REPORT COMMENT:REC'D IN CHYTHIS TEST WAS PERFORMED AT:[employer] [id number] [place] [phone] BLACKWELL MD,PHD 09/13/2024 9:28 AM EDT 09/13/2024 11:10 AM EDT us Beth Gomez MD LAB BLOOD ORDERABLES Final Result [facility] [address] [place] [address] [phone] * TSH W/Reflex to FT4 (09/13/2024 9:28 AM EDT) TSH reflex Free T4 2.13 0.32 - 4.0 uIU/mL [facility] Blood Venous blood specimen / Unknown 09/13/2024 9:28 AM EDT 09/13/2024 11:10 AM EDT us Beth Gomez MD LAB BLOOD ORDERABLES Final Result [facility] [address] [place] [phone] * CBC auto differential (09/13/2024 9:28 AM EDT) White Blood Count 6.9 4.8 - 10.8 X10*3/uL [facility] Red Blood Count 5.08 4.20 - 5.50 X10*6/uL [facility] Hemoglobin 15.1 12.0 - 16.0 g/dl [facility] Hematocrit 45.3 37.0 - 47.0 % [facility] Mean Corpuscular Volume 89.2 80.0 - 98.0 fL [facility] Mean Corpuscular Hemoglobin 29.7 27.0 - 33.0 pg [facility] Mean Corpuscular HGB Conc 33.3 31.0 - 35.0 g/dl [facility] Red Cell Distribution Width 13.8 11.0 - 16.0 % [facility] Platelet Count 281 160 - 400 X10*3/uL [facility] Mean Platelet Volume 11.0 9.4 - 12.3 fL [facility] Neutrophils Percent Auto 60.8 45 - 73 % [facility] Imm Gran Pct Auto 0.3 0.0 - 0.4 % [facility] Lymphocytes Percent Auto 28.7 20 - 40 % [facility] Monocytes Percent Auto 7.6 2 - 11 % [facility] Eosinophils Percent Auto 2.2 0 - 4 % [facility] Basophils Percent Auto 0.4 0 - 2 % [facility] NRBC Pct Auto 0.0 0.0 - 0.2 /100WBC [facility] Neutrophils Absolute Auto 4.2 2.0 - 8.3 x10*3/uL [facility] Imm Gran Abs Auto 0.02 0.00 - 0.03 X10*3/uL [facility] Lymphocytes Absolute Auto 2.0 1.2 - 4.9 X10*3/uL [facility] Monocytes Absolute Auto 0.5 0.1 - 1.2 X10*3/uL [facility] Eosinophils Absolute Auto 0.2 0.0 - 0.4 X10*3/uL [facility] Basophils Absolute Auto 0.0 0.0 - 0.2 X10*3/uL [facility] NRBC Abs Auto 0.000 0.0 - 0.012 X10*3/uL [facility] Blood Venous blood specimen / Unknown 09/13/2024 9:28 AM EDT 09/13/2024 11:10 AM EDT us Beth Gomez MD LAB BLOOD ORDERABLES Final Result [facility] [address], [place] [phone] * (ABNORMAL) Lipid Panel, Standard (09/13/2024 9:28 AM EDT) Triglycerides 122 <150 mg/dL [facility] Comment:Desirable Triglyceri de: less than 150 mg/dLBorderline High Triglyceride 150-199 mg/dLHigh Triglyceride: 200-499 mg/dLVery High Triglyceride: greater than or equal to 5OO mg/dL Cholesterol 212(H) <200 mg/dL [facility] Comment:Desirable Cholestero l: less than 200 mg/dLBorderline High Cholesterol: 200-239 mg/dLHigh Cholesterol: greater than 239 mg/dL LDL Cholesterol Calculated 137(H) <100 mg/dL [facility] Comment:Desirable LDL: less than 100 mg/dLNear Optimal/Above Optimal LDL: 110- 129 mg/dLBorderline High LDL: 130-159 mg/dLHigh LDL: 160-189 mg/dLVery High LDL: greater than or equal to 190 mg/dL HDL Cholesterol 51 >40 mg/dL [facility] Comment:Desirable HDL: great er than 40 mg/dL Note: This HDL assay may give artificially low results in patients with liver disease. Blood Venous blood specimen / Unknown 09/13/2024 9:28 AM EDT 09/13/2024 11:10 AM EDT us Beth Gomez MD LAB BLOOD ORDERABLES Final Result [facility] [address] [place] [phone] * Comprehensive Metabolic Panel (09/13/2024 9:28 AM EDT) Sodium 139 135 - 145 mmol/L [facility] Potassium 3.7 3.3 - 5.1 mmol/L [facility] Chloride 106 96 - 108 mmol/L [facility] Carbon Dioxide 24 22 - 29 mmol/L [facility] Anion Gap 13 12 - 20 [facility] Urea Nitrogen (BUN) 14 9 - 16 mg/dL [facility] Creatinine, Serum 0.73 0.5 - 1.4 mg/dL [facility] Estimated Glomerular Filt Rate >60 [facility] Comment:Chronic Kidney Disea se: Estimated GFR < 60 mL/min/1.41f3Mxawow Kidney Disease: Estimated GFR < 15 mL/min/1.73m2 Glucose 95 60 - 115 mg/dL [facility] Calcium 9.8 8.4 - 10.2 mg/dL [facility] Bilirubin, Total 0.7 0.0 - 1.0 mg/dL [facility] Aspartate Amino Transferase 28 5 - 31 U/L [facility] Alanine Aminotransferase 19 0 - 31 U/L [facility] Total Protein 7.7 6.5 - 8.0 g/dL [facility] Albumin Level 4.3 3.5 - 5.0 g/dL [facility] Alkaline Phosphatase 71 39 - 117 U/L [facility] Blood Venous blood specimen / Unknown 09/13/2024 9:28 AM EDT 09/13/2024 11:10 AM EDT us Beth Gomez MD LAB BLOOD ORDERABLES Final Result [facility] [address] [place] [phone] * FL Esophagus Barium Swallow (09/05/2024 7:33 AM EDT) Anatomical Region Laterality Modality Head, Neck Radiographic Sonal ging 09/05/2024 7:33 AM EDT Narrative 09/05/2024 10:35 AM EDT [address] [address] Fluoroscopy Report Signed Patient: Aura Childress MR#: [id number] : 1975 Acct:[id number] Age/Sex: 49 / F ADM Date: 09/05/24 Loc: HO.XRAY Attending Dr: Angeles Walker MD Ordering Physician: Angeles Walker MD Date of Service: 09/05/24 Procedure(s): FL barium swallow Accession Number(s): [id number] cc: Beth Donnelly MD; Angeles Walker MD [...] Gera Brown MD 09/05/2024 10:31 AM EDT RP Dictated By: Gera Brown MD Signed By: <Electronically signed by Gera Brown MD in OV> 09/05/24 1031 DD/ 0733 TD/TT: 09/05/24 0800 [employer] Officer: MUKESH Procedure Note Donotuseinterpreter, Image - 09/05/[address] [address] Fluoroscopy Report Signed Patient: Aura Childress AMR#: [id number] : 1975Acct:[id number] Age/Sex: 49 / FADM Date: 09/05/24 Loc: ERIC Attending Dr: Angeles Walker MD Ordering Physician: Angeles Walker MD Date of Service: 09/05/24 Procedure(s): FL barium swallow Accession Number(s): [id number] cc: Beth Donnelly MD; Angeles Walker MD [...] Gera Brown MD 09/05/2024 10:31 AM EDT RP Dictated By: Gera Brown MD Signed By: <Electronically signed by Gera Brown MD in OV> 09/05/24 1031 DD/ 0733 TD/TT: 09/05/24 0800 [employer] Officer: MUKESH [facility] External Provider IMG FLU OROSCOPY PROCEDURES Final Result * BI Mammogram Screening Tomosynthesis Bilateral (08/29/2024 2:56 PM EDT) Anatomical Region Laterality Modality Breast Bilateral Mammography 08/29/2024 2:56 PM EDT Narrative 09/03/2024 8:[address] PM [address]T [address] [place] [address] Mammography Report Signed Patient: Aura Childress MR#: [id number] : 1975 Acct:[id number] Age/Sex: 49 / F ADM Date: 08/29/24 Loc: HO.MAMMO Attending Dr: Beth Gomez MD Ordering Physician: Beth Donnelly MD Results: 1Negative Date of Service: 08/29/24 Follow Up: 1 Year From Orig ina Mammogram Procedure(s): MM tomosynthesis screening BI Accession Number(s): [id number] cc: Beth Donnelly MD EXAMINATION: MM SCREENING [...] OV> 09/03/242007 DD/ 1456 TD/TT: 08/29/24 1518 [employer] Officer: Procedure Note Donotuseinterpreter, Image - 09/03/2024 [place] [facility] [address] [place] [address] Mammography Report Signed Patient: Aura Childress AMR#: [id number] : 1975Acct:[id number] Age/Sex: 49 / FADM Date: 08/29/24 Loc: HO.MAMMO Attending Dr: Beth Gomez MD Ordering Physician: Beth Donnelly MDResults: 1Negative Date of Service: 08/29/24Follow Up: 1 Year From Orig inal Mammogram Procedure(s): MM tomosynthesis screening BI Accession Number(s): [id number] cc: Beth Donnelly MD EXAMINATION: MM SCREENING [...] 09/03/2024 08:08 PM EDT RP Dictated By: Tyminski,Bibi DO Signed By: <Electronically signed by Bibi Centeno DO in OV> 09/03/242007 DD/ 1456 TD/TT: 08/29/24 1518 [employer] Officer: us Beth Gomez MD IMG BI PROCEDURES Rhett elliott Result - Final * HPV DNA, Low/High Risk (08/24/2024 11:34 AM EDT) HPV High Risk Negative Negative [facility] HPV Genotype 16 Negative Negative [facility] HPV Genotype 18 Negative Negative [facility] [facility] Comment:HPV testing performe d at [facility] (CLIA#[id number]), [address] [place] [address].Testing for HPV was performed using the [employer] AMARILIS 6800system. The presence of HPV in [...] Gomez MD LAB BLOOD ORDERABLES Final Result [facility] [address] [place] [phone] * Pap Smear (08/24/2024 11:34 AM EDT) Swab 08/24/2024 11:3 4 AM EDT 08/25/2024 6:50 AM EDT Narrative [facility] - 08/30/2024 9:34 AM EDT ----- ------- Name: Aura Childress Age/Sex: 49/F : 1975 Unit#: [id number] Attend Dr: Beth Donnelly MD Re08/24/24 Status: DEP REF Location: [facility] Disch: ----- ------- SPEC : [id number] RECD: 08/25/24 STATUS: SHANA MATHEWS NUM: [id number] KAREN: 08/24/24-[address] [facility] [address]: Beth Donnelly MD ENTERED: 08/25/2472 SP TYPE: Pap Smr OTHR DR: ORDERED: Pap Smear Interpretation Satisfactory for evaluation. Negative for intraepithelial lesion or malignancy. HPV High Risk: Negative HPV Genotyping 16: Negative HPV Genotyping 18: Negative Clinical Information LMP:UNKOWN Previous PAP test:NORMAL Other surgery: Other history: ----- ------- Signed (signature on file) AUREA Yoder (ASCP) 08/30/24 0934 ----- ------- END OF REPORT Beth Gomez MD LAB CYTOLOGY ORDERABL ES Final Result Performing Organization Address [facility]/ZIP Co de Phone Number [facility] [address] [place] [address] [phone] * HIV AB/AG (06/24/2019 9:00 AM EST) [facility] HIV AG/AB NONREACTIVE NR [facility] Comment: HIV-1 p24 Ag and/or HIV-1/HIV-2 Ab not detected. A test result that is nonreactive does not exclude the possibility of exposure to or infection with HIV-1 and/or HIV-2. Nonreactive results in this assay for individuals with prior exposure to HIV-1 and/or HIV-2 may be due to antigen and antibody levels that are below the limit of detection of this assay. The [employer] HIV Ag/Ab Combo assay result and supplemental assay results should be interpreted in conjunction with the patient's clinical presentation, history and other laboratory results. If the results are inconsistent with clinical evidence, additional testing is suggested to confirm the result. 06/24/2019 9:00 AM EST Beth Gomez MD HISTORICAL/NON ORDERA BLE LABS Final Result Performing Organization Address City/[facility]/ZIP Co de Phone Number [facility] [address] from Last 3 Months or Most Recently Relevant to Health Maintenance [place] [address] [place] [address] [facility] - [facility] PARTIAL (MEDICAID) Care Teams Adult Basic Education Teacher Relationship Specialty Start Date End Date Beth Donnelly MD [address] [place] [phone] PCP - General Family Medicine 05/01/19
== END 2024-12-04 14:51 | disposition home or self-care (01) ==
LOC: HO.HGI 13:44
PROVIDERS: PCP Internal Medicine; Visit Provider Internal Medicine
DX: E66.01 Morbid (severe) obesity due to excess calories (principal); R13.10 Dysphagia, unspecified; R19.4 Change in bowel habit
CPT/HCPCS: 99213

== ENCOUNTER → 2024-12-04 13:43 | Outpatient (BNVA) | payer OTHER, SELFPAY | PROVIDERS: PCP Internal Medicine; Visit Provider Internal Medicine | DX: E66.01 Morbid (severe) obesity due to excess calories (principal); Z68.41 Body mass index [BMI] 40.0-44.9, adult; R13.10 Dysphagia, unspecified; R19.4 Change in bowel habit | CPT/HCPCS: 99212 ==

== ENCOUNTER 2024-12-15 10:10 | Outpatient (REF) | payer OTHER, SELFPAY ==
--- OUTSIDE RECORDS SUMMARY | 2024-12-15 10:30 | XMS_ITS | Encounter Summary ---
Author Organization [employer] Address [address] [place] [address] [facility] [place] [address] Care Team Providers Care Ammonia Box Tender Name Role Phone Beth Donnelly MD Primary Care Provide r Encounter Details Date Type Department Care Team ([facility] Contact Info) Description 12/15/2024 Telephone [facility] [address] [place], [place] [phone] Beth Bob MD [address] [place] [address] Social History Tobacco Use Types Packs/Day Years Used Date Smoking Tobacco: Never Passive Smoke Exposure: Never Smokeless Tobacco: Never Alcohol Use Standard Drinks/Week Comments Defer 0 (1 standard drink = 0.6 oz pur e alcohol) Depression Answer Date Recorded Patient Health Questionnaire-9 Score 0 12/15/2024 Patient Health Questionnaire-9 Score 0 12/15/2024 Last PHQ-9: Questionnaire Data Not on file 0 12/15/2024 Housing Stability Answer Date Recorded What is your housing situation today? I have juni arreola 12/15/[address] you li ve. Do you have problems with any of the following? None of the above 12/15/2024 Food Insecurity Answer Date Recorded Within the past 12 months, y ou worried that your food would run out before you got money to buy more: Never True 12/15/2024 Within the past 12 months,th e food you bought just didn't last and you didn't have enough money to get more: Never True Transportation Answer Date Recorded In the past 12 months, has l ack of transportation kept you from medical appts, meetings, work or from getting things needed for daily living? No 12/15/2024 Utilities Answer Date Recorded In the past 12 months, has t he electric, gas, oil or water company threatened to shut off services in your home? No 12/15/2024 Depression Answer Date Recorded Patient Health Questionnaire-2 Score 0 12/15/2024 Internet Access Answer Date Recorded Internet Access Q1 Yes 12/15/2024 Internet Access Q2 Not on file 12/15/2024 Comments Unknown Sex and Gender Information Value Date Recorded Sex Assigned at Female 03/30/2022 10:28 AM EDT Legal Sex Female 10:28 AM EDT Gender Identity Female 03/30/2022 10:28 AM EDT Sexual Orientation Straight 03/30/2022 10 :28 AM EDT documented as of this encounter Functional Status * Over the past 2 weeks, how often have you been bothered by any of the following problems? Question Answer Date of Assessment Author Patient Health Questionnaire -2 Score 0 12/15/2024 9:12 AM EDT Sheyla Rizvi MA * Little interest or pleasure in doing things Answer Date of Assessment Author Not at all 12/15/2024 9:12 AM EDT Wilfrido Rizvi MA * Feeling down, depressed, or hopeless Answer Date of Assessment Author Not at all 12/15/2024 9:12 AM EDT Wilfrido Rizvi MA * Trouble falling or staying asleep, or sleeping too much Answer Date of Assessment Author Not at all 12/15/2024 9:12 AM Wilfrido Chaney MA * Feeling tired or having little energy Answer Date of Assessment Author Not at all 12/15/2024 9:12 AM PAPOT Wilfrido Rizvi MA * Poor appetite or overeating Answer Date of Assessment Author Not at all 12/15/2024 9:12 AM PAPOT Sheyla Rizvi MA * Feeling bad about yourself - or that you are a failure or have let yourself or your family down Answer Date of Assessment Author Not at all 12/15/2024 9:12 AM Wilfrido Chaney MA * Trouble concentrating on things, such as reading the newspaper or watching television Answer Date of Assessment Author Not at all 12/15/2024 9:12 AM Wilfrido Chaney MA * Moving or speaking so slowly that other people could have noticed? Or the opposite - being so fidgety or restless that you have been moving around a lot more than usual. Answer Date of Assessment Author Not at all 12/15/2024 9:12 AM PAPOT Wilfrido Rizvi MA * Thoughts that you would be better off or hurting yourself in some way Answer Date of Assessment Author Not at all 12/15/2024 9:12 AM PAPOT Wilfrido Rizvi MA * Patient Health Questionnaire-9 Score Answer Date of Assessment Author 0 12/15/2024 9:12 AM PAPOT Wilfrido Rizvi MA * Over the last 2 weeks, how often have you been bothered by any of the following problems? Question Answer Date of Assessment Author Feeling nervous, anxious, or on edge 0 12/15/2024 9:12 AM EDT Sheyla Rizvi MA Not being able to stop or co ntrol worrying 0 12/15/2024 9:12 AM PAPOT Sheyla Rizvi MA Worrying too much about diff erent things 0 12/15/2024 9:12 AM PAPOT Sheyla Rizvi MA Trouble relaxing 0 12/15/2024 9:12 AM EDT Sheyla Bustos MA Being so restless that it is hard to sit still 0 12/15/2024 9:12 AM PAPOT Sheyla Rizvi MA Becoming easily annoyed or irritable 0 12/15/2024 9:12 AM PAPOT Sheyla Rizvi MA Feeling afraid as if somethi ng awful might happen 0 12/15/2024 9:12 AM PAPOT Sheyla Rizvi MA CAROLE-7 Total Score 0 12/15/2024 9:12 AM Sheyla Chaney MA documented as of this encounter Plan of Treatment Upcoming Encounters Date Type Department Care Team (Late st Contact Info) Description 01/30/2025 3:00 PM EDT Office Visit [facility] [address] [place] [address] Alma Tellez documented as of this encounter Visit Diagnoses Not on filedocumented in this encounter Additional Health Concerns Assessment Noted Time PHQ-9 Depression Total Score: 0 12/16/19 25 9:12 AM EDT documented as of this encounter Care Teams Ammonia Box Tender Relationship Specialty Start Date End Date Beth Donnelly MD [address] [place] [address] PCP - General Family Medicine 05/01/19 documented as of this encounter
[2024-12-15 12:07] LABS: Alanine Aminotransferase 12 U/L (0-31); Albumin Level 4.3 g/dL (3.5-5.0); Alkaline Phosphatase 59 U/L (39-117); Anion Gap 12 (12-20); Aspartate Amino Transferase 14 U/L (5-31); Blood Urea Nitrogen 17 mg/dL (9-16); Calcium 8.9 mg/dL (8.4-10.2); Carbon Dioxide 29 mmol/L (22-29); Chloride 105 mmol/L (96-108); Estimated Glomerular Filt Rate > 60; Magnesium 2.4 mg/dL (1.6-2.6); Potassium 3.2 mmol/L (3.3-5.1); Sodium 143 mmol/L (135-145); Total Protein 7.5 g/dL (6.5-8.0)
[2024-12-16 10:24] LABS: Chlamydia pneumoniae PCR Not Detected (Not Detect.); Coronavirus 229E PCR Not Detected (Not Detect.); Coronavirus HKU1 PCR Not Detected (Not Detect.); Coronavirus NL63 PCR Not Detected (Not Detect.); Coronavirus OC43 PCR Not Detected (Not Detect.); RSV PCR Not Detected (Not Detect.); Rhino/Enterovirus PCR Not Detected (Not Detect.)
[2024-12-16 10:58] LABS: Influenza A H1 PCR Not Detected (Not Detect.); Influenza A H1-2009 PCR Not Detected (Not Detect.); Influenza A H3 PCR Not Detected (Not Detect.); SARS-CoV-2 PCR Not Detected (Not Detect.)
== END 2024-12-15 10:11 | disposition home or self-care (01) ==
LOC: HO.HHCL 10:10
PROVIDERS: PCP Internal Medicine; Visit Provider Student in an Organized Health Care Education/Training Program
DX: R05.2 Subacute cough (principal)
CPT/HCPCS: 36415; 80053; 83735; 87633

== ENCOUNTER 2024-12-23 14:12 | Outpatient (REF) | payer OTHER, SELFPAY ==
--- OUTSIDE RECORDS SUMMARY | 2024-12-23 14:15 | XMS_ITS | Clinical Summary ---
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 methocarbamol (Robaxin) 750 MG tabletIndicatio ns:Chronic midline low back pain with left-sided sciatica Take 1 tablet (750 mg) by mouth 4 times daily for 10 days. 40 tablet 12/03/19 24 Active Additional Information Patient not taking.Reported on 12/15/2024 losartan-hydroC HLOROthiazide (Hyzaar) 50-12.5 MG tabletIndicatio ns:Uncontrolled hypertension Take 1 tablet by mouth Once per day. 30 tablet 11 08/25/19 25 2025 Active Blood Pressure Monitoring (Blood Pressure Cuff) miscIndications :Uncontrolled hypertension 1 each Once daily. 1 each 08/25/19 25 Active famotidine (Pepcid) 20 MG tabletIndicatio ns:Gastroesopha geal reflux disease, unspecified whether esophagitis present Take 1 tablet (20 mg) by mouth 2 times daily. 60 tablet 11 10/18/19 25 2025 Active phentermine 15 MG capsuleIndicati ons:Class 3 severe obesity due to excess calories with serious comorbidity and body mass index (BMI) of 40.0 to 44.9 in adult Take 1 capsule (15 mg) by mouth before breakfast. 30 capsule 1 10/18/19 25 Active topiramate (Topamax) 25 MG tabletIndicatio ns:Class 3 severe obesity due to excess calories with serious comorbidity and body mass index (BMI) of 40.0 to 44.9 in adult Take 1 tablet (25 mg) by mouth Once per day. 30 tablet 1 10/18/19 25 2025 Active Additional Information Patient not taking.Reported on 12/15/2024 albuterol 108 (90 Base) MCG/ACT inhaler Inhale 2 puffs every 4 (four) hours if needed. 12/12/19 25 2024 Active Delsym 30 MG/5ML liquid TAKE 10 ML (30 MG) BY MOUTH IF NEEDED IN THE MORNING, AT NOON, IN THE EVENING, AND AT BEDTIME FOR COUGH FOR UP TO 7 DAYS. 120 mL 12/16/19 Active potassium chloride CR (Klor-Con M20) 20 MEQ ER tablet Take 1 tablet (20 mEq) by mouth Once per day. Do not crush or chew. 2 tablet 12/16/19 25 2025 Active amoxicillin-cla vulanate (Augmentin) 875-125 MG tablet Take 1 tablet by mouth 2 times daily for 7 days. 14 tablet 12/24/19 25 2024 Active cetirizine (ZyrTEC) 10 MG tablet Take 1 tablet (10 mg) by mouth Once per day. 30 tablet 2 12/24/19 25 2024 Active acetaminophen (Tylenol 8 Hour) 650 MG ER tabletIndicatio ns:Subacute pansinusitis Take 1 tablet (650 mg) by mouth every 8 (eight) hours if needed for mild pain. Do not crush, chew, or split. 30 tablet 12/24/19 25 Active fluticasone (Flonase) 50 MCG/ACT nasal sprayIndication s:Subacute pansinusitis Administer 1-2 sprays into each nostril Once per day for 14 days. Shake gently. Before first use, prime pump. After use, clean tip and replace cap. 16 g 12/24/19 25 2024 Active acetaminophen (Tylenol 8 Hour) 650 MG ER tabletIndicatio ns:Impacted third molar tooth,Pain, dental Take 1 tablet (650 mg) by mouth every 8 (eight) hours if needed for mild pain. Do not crush, chew, or split. 30 tablet 10/31/19 25 2024 Discontinued(R eorder (will not trigger notification to Pharmacy)) benzonatate (Tessalon) 100 MG capsule Take 100 mg by mouth if needed in the morning, at noon, and at bedtime. 12/12/19 25 2024 predniSONE (Deltasone) 50 MG tablet Take 50 mg by mouth Once per day. 12/12/19 25 2024 azithromycin (Zithromax) 250 MG tablet Take 2 tablets (500 mg) by mouth Once per day for 1 day, THEN 1 tablet (250 mg) Once per day for 4 days. 6 tablet 12/16/19 25 2024 fluticasone (Flonase) 50 MCG/ACT nasal spray Administer 1-2 sprays into each nostril Once per day for 14 days. Shake gently. Before first use, prime pump. After use, clean tip and replace cap. 16 g 12/16/19 25 2024 Discontinued(R eorder (will not trigger notification to Pharmacy)) dextromethorpha n 15 MG/5ML syrup Take 10 mL (30 mg) by mouth if needed in the morning, at noon, in the evening, and at bedtime for cough for up to 7 days. 120 mL 12/16/19 25 2024 Discontinued Active Problems Problem Noted Date Diagnosed Date Subacute pansinusitis 12/23/2024 Assessment & Plan (12/23/2024 9:19 AM EDT): Rapid influenza test is negative, I will Rx Augmentin for sinusitis, I explained that this is a common complication from viral URIs.. Rest (sleep at least 8 hours a night) out of work x 2 days (cover 48 hours of antibiotics) and follow-up respiratory panel. Hydrate with plenty of water (avoid caffeine and alcohol). Use saline nose drops to loosen mucus + Flonase Take Acetaminophen (Tylenol )/Ibuprofen as needed to reduce fever, headache, body aches or discomfort Gargle with salt water and use throat sprays/lozenges for throat pain. Use heated, humidified air. If you do not have a humidifier, take hot showers. Cover coughs and sneezes using the crook of your elbow. If you have a fever, stay home and away from others (self isolation) until fever-free for 72 hours (temperature should be less than 100 F without medication). Parainfluenza infection 12/23/2024 Bronchitis 12/16/2024 Assessment & Plan (12/16/2024 3:11 PM EDT): Pt w symptoms of bronchitis/postnasal drip , given ongoing cough despite above tx will r/o pertussis w ongoing dry cough -start flonase for postanasal drip -azithromycin x 5 days in case pertussis -dextromethorpahne Q6 h PRN -obtained RSV panel today -will inform pt -to start at home and monitor 72 h -excusse letter gave today if ok by then ok to go back to work -if symptoms persisit will need to consider meds as cause w losartan causing symptoms Hypokalemia 12/16/2024 Assessment & Plan (12/16/2024 3:12 PM EDT): Seen at ED on 12/11/24: potassium 3.3 -reports taking losartan/HDCTZ 50/12.5 Mg daily-started from note in 07/2024 -noted in ED to have low potassium -advised diet jake in potassium -repeat chem today and Mag -if again low will need to prescribe oral potassium and pt will need to f w PCP given likely HDCTZ maybe causing drop in K+ Impacted third molar tooth 10/30/2024 Pain, dental [...] Plan (09/01/2024 4:41 PM EDT): Most likely grieving, LEE ANN was called today Patient is also [...] Pap smear for cervical cancer screening 08/25/19 25 Assessment & Plan (08/24/2024 12:31 PM EDT): [...] Encounters Date Type Department Care Team Description 12/23/2024 9:20 AM EDT Office Visit [facility] [address] [address] Jim Barboza MD Subacute pansinusitis (Primary Dx); Parainfluenza infection 12/23/2024 Travel 12/15/2024 9:00 AM EDT Office Visit [address] [address] Beth Bob MD Subacute cough (Primary Dx); Bronchitis; Hypokalemia 12/15/2024 Results Follow-Up [address] [address] Beth Bob MD Comprehensive Metabolic Panel, Magnesium, Respiratory Viral Panel PCR 12/15/2024 Orders Only [facility] [address] [place] [address], [place] [address] Beth Bob MD Hypokalemia (Primary Dx) 12/15/[address] [address] Beth Donnelly MD Appointment Request 12/15/[address] [place] [address] Beth Bob MD 12/15/[address] [address] Beth Bob MD 12/15/2024 Travel 12/14/[address] [address] Beth Donnelly MD Nurse Triage 10/30/2024 3:00 PM EDT Office Visit [facility] [address] [place] [phone] Lencho Peres DDS Impacted third molar tooth (Primary Dx); Pain, dental; Uncontrolled hypertension 10/20/[address] [address] Beth Donnelly MD Medication Question 10/17/2024 2:30 PM EDT Telemedicine [address] [address] Beth Donnelly MD Gastroesophageal reflux disease, unspecified whether esophagitis present; Anxiety with depression; Class 3 severe obesity due to excess calories with serious comorbidity and body mass index (BMI) of 40.0 to 44.9 in adult 10/17/2024 Travel 10/17/[address] [address] Chanel Hudson Offer additional support for services 10/12/2024 Orders Only GENERIC EXTERNAL DATA DEPARTMENT Provider, Generic External Data 10/09/2024 3:00 PM EDT Nutrition [facility] N [address] [place] [address] Class 3 severe obesity due to excess calories with serious comorbidity and body mass index (BMI) of 40.0 to 44.9 in adult 10/09/2024 Travel 10/09/2024 Telephone [facility] [address] [place] [address] Beth Donnelly MD call back needed 09/27/2024 Refill [facility] [address] [place] [address] Beth Donnelly MD Anxiety with depression from Last 3 Months Immunizations Immunization Administration [...] housing situation today? I have junidavina arreola 12/15/[address] you [...] Sign Reading Time Taken Comments Blood Pressure 122/80 12/23/2024 8:54 AM EDT Pulse 75 12/23/2024 8:54 AM EDT Temperature 36.4 C (97.5 F) 12/23/2024 8:54 AM EDT Respiratory Rate 20 12/23/2024 8:54 AM EDT Oxygen Saturation 98% 12/23/2024 8:54 AM EDT Inhaled Oxygen Concentration - - Weight 105 kg (231 lb 9.6 oz) 12/23/2024 8:54 AM EDT Height 160 cm (5' 3 ) 12/23/2024 8:54 AM EDT Body Mass Index 41.03 12/23/2024 8:54 AM EDT Plan of Treatment Upcoming Encounters Date Type Department Care Team (Late st Contact Info) Description 01/30/2025 3:00 PM EDT Office Visit [facility] [address] [place] [address] Alma Tellez Health Maintenance Due Date Last Done Comments CT Colonography 1975 Colonoscopy 1975 Colorectal Cancer Screening 1975 FIT DNA/Cologuard 1975 FIT 1975 FOBT 1975 Sigmoidoscopy 1975 Family Planning (PISQ) 1989 Hepatitis C Screening 1992 DTaP/Tdap/Td Vaccines (1 - Tdap) 1993 Hepatitis B Vaccines (1 of 3 - 19+ 3-dose series) 1993 COVID-19 Vaccine ( season) 2024 04/28/2021, 07/26/2020, [...] 2025 , 09/09/2021, 03/27/2020, Additional history exists Mammogram 08/29/2025 08/29/2024, 03/07/2023, 07/25/2022, Additional history exists Alcohol/Substance Use Screening 12/15/2025 12/15/2024 Depression Screening 12/15/2025 12/15/2024, 12/16/19 SDOH Screening 12/15/2025 12/15/2024 Disability Screening 12/23/2025 12/23/2024 Tobacco Screening 12/23/2025 12/23/2024 Dental X-Ray: Full Mouth 11/01/2027 025, 07/28/2021, [...] Procedure Name Priority Date/Time Associated Diagnosis Comments POCT INFLUENZA A (ID NOW RAPID MOLECULAR) Routine 12/23/2024 9:25 AM EDT Subacute pansinusitis POCT INFLUENZA B (ID NOW RAPID MOLECULAR) Routine 12/23/2024 9:25 AM EDT Subacute pansinusitis MAGNESIUM Routine 12/15/2024 10:16 AM EDT Subacute cough COMPREHENSIVE METABOLIC PANEL Routine 12/15/2024 10:16 AM EDT Subacute cough RESPIRATORY VIRAL PANEL PCR Routine 12/15/2024 9:40 AM EDT Subacute cough CASE PRESENTATION, DETAILED AND EXTENSIVE TREATMENT PLANNING Routine 10/30/2024 3:00 PM EDT PANORAMIC RADIOGRAPHIC IMAGE Routine 10/30/2024 3:00 PM EDT 20 LIMITED ORAL EVALUATION - PROBLEM FOCUSED Routine 10/30/2024 3:00 PM EDT HEMATOXYLIN AND EOSIN STAIN Routine 10/12/2024 9:38 AM EDT HCG, QL, URINE Routine 10/12/2024 8:30 AM EDT LIPID PANEL, STANDARD Routine 09/13/2024 9:28 AM EDT Primary hypertension BI MAMMOGRAM SCREENING TOMOSYNTHESIS BILATERAL Routine 08/29/2024 [...] RADIOGRAPHIC IMAGES Routine 11/25/2023 3:00 PM EDT EMMANUEL HISTORICAL HIV AB/AG Routine 06/24/2019 9:00 AM EST from Last 3 Months or Most Recently Relevant to Health Maintenance Results * POCT Rapid Influenza B THOMAS ID NOW (12/23/2024 9:25 AM EDT) Influenza B Negative Negative, Indeterminate [facility] QC Media Lot # [id number] [facility] Lot# Expiration Date [facility] Swab 12/23/2024 9:25 AM EDT us Jim Barboza MD POINT OF CARE TEST ENTER /EDIT ORDERABLES Final Result Performing Organization Address City/[facility]/ZIP Co de Phone Number [facility] [address] [place] [address] [phone] * POCT Rapid Influenza A THOMAS ID NOW (12/23/2024 9:25 AM EDT) Influenza A Negative Negative, Indeterminate [facility] QC Media Lot # [id number] [facility] Lot# Expiration Date [facility] Swab 12/23/2024 9:25 AM EDT us Jim Barboza MD POINT OF CARE TEST ENTER /EDIT ORDERABLES Final Result Performing Organization Address City/[facility]/ZIP Co de Phone Number [facility] [address] [place] [phone] * Magnesium (12/15/2024 10:16 AM EDT) Magnesium 2.4 1.6 - 2.6 mg/dL [facility] Blood Venous blood specimen / Unknown 12/15/2024 10:16 AM EDT 12/15/2024 11:13 AM EDT us Beth Menjivar MD LAB BLOOD ORDERAB LES Final Result [facility] [address] [place] [address] [phone] * (ABNORMAL) Comprehensive Metabolic Panel (12/15/2024 10:16 AM EDT) Sodium 143 135 - 145 mmol/L [facility] Potassium 3.2(L) 3.3 - 5.1 mmol/L [facility] Chloride 105 96 - 108 mmol/L [facility] Carbon Dioxide 29 22 - 29 mmol/L [facility] Anion Gap 12 12 - 20 [facility] Urea Nitrogen (BUN) 17(H) 9 - 16 mg/dL [facility] Creatinine, Serum 0.76 0.5 - 1.4 mg/dL [facility] Estimated Glomerular Filt Rate >60 [facility] Comment:Chronic Kidney Disea se: Estimated GFR < 60 mL/min/1.53t5Jnbjap Kidney Disease: Estimated GFR < 15 mL/min/1.73m2 Glucose 92 60 - 115 mg/dL [facility] Calcium 8.9 8.4 - 10.2 mg/dL [facility] Bilirubin, Total 0.7 0.0 - 1.0 mg/dL [facility] Aspartate Amino Transferase 14 5 - 31 U/L [facility] Alanine Aminotransferase 12 0 - 31 U/L [facility] Total Protein 7.5 6.5 - 8.0 g/dL [facility] Albumin Level 4.3 3.5 - 5.0 g/dL [facility] Alkaline Phosphatase 59 39 - 117 U/L [facility] Blood Venous blood specimen / Unknown 12/15/2024 10:16 AM EDT 12/15/2024 11:13 AM EDT Beth Menjivar MD LAB BLOOD ORDERAB LES Final Result [facility] [address] [place] [address] [phone] * (ABNORMAL) Respiratory Viral Panel PCR (12/15/2024 9:40 AM EDT) Adenovirus PCR Not Detected Not Detect. [facility] Bordetella pertussis PCR Not Detected Not Detect. [facility] Comment:Interpret results wi th caution. If B. pertussis isspecifically suspected, additional testing using analternate method is recommended. Bordetella parapertussis PCR Not Detected Not Detect. [facility] Chlamydia pneumoniae PCR Not Detected Not Detect. [facility] Coronavirus 229E PCR Not Detected Not Detect. [facility] Coronavirus HKU1 PCR Not Detected Not Detect. [facility] Coronavirus NL63 PCR Not Detected Not Detect. [facility] Coronavirus OC43 PCR Not Detected Not Detect. [facility] SARS-CoV-2 PCR Not Detected Not Detect. [facility] Comment:SARS-CoV-2 not detec elliott by real-time RT-PCR.Note: If clinical suspicion for Sars-CoV-2 is high, continueto maintain precautions and consider repeat testing.Test results should be interpreted in the context ofclinical findings and other laboratory data.Rare polymorphisms exist that could lead to false-negativeor false-positive results. If results do not match theclinical findings, additional testing should be considered.Results reported to [facility].This test has been authorized by the FDA under the EmergencyUse Authorization (EUA) for use by authorized laboratories. Influenza A PCR Not Detected Not Detect. [facility] Influenza A Subtype H1 Not Detected Not Detect. [facility] Influenza A H1-2009 PCR Not Detected Not Detect. [facility] Influenza A Subtype H3 Not Detected Not Detect. [facility] Influenza B PCR Not Detected Not Detect. [facility] Human metapneumovirus PCR Not Detected Not Detect. [facility] Rhino/Enterovirus PCR Not Detected Not Detect. [facility] Mycoplasma pneumoniae PCR Not Detected Not Detect. [facility] Parainfluenza 1 PCR Not Detected Not Detect. [facility] Parainfluenza 2 PCR Not Detected Not Detect. [facility] Parainfluenza 3 PCR Detected(A) Not Detect. [facility] Parainfluenza 4 PCR Not Detected Not Detect. [facility] RSV PCR Not Detected Not Detect. [facility] Resp Panel NA Note See Note H [facility] Comment:All results must be correlated with clinical findings.Negative results should not be used as the sole basis fordiagnosis, treatment, or other management decisions.A negative result does not exclude the possibility of viralor bacterial infection. Negative results may occur from thepresence of sequence variants in the region targeted by theassay, the presence of inhibitors, an infection caused by anorganism not detected by the panel, or lower respiratorytract infections that are not detected by a nasopharyngealswab specimen. Test results may also be affected byconcurrent antiviral/antibacterial therapy or levels oforganism in the specimen that are below the limit ofdetection for this test.This assay is performed by Multiplexed PCR, utilizing [employer]. Swab 12/15/2024 9:40 AM EDT 12/15/2024 3:59 PM EDT us Beth Menjivar MD LAB BLOOD ORDERAB LES Final Result [facility] [address] [place] [phone] * Hematoxylin and Eosin Stain (10/12/2024 9:38 AM EDT) 10/12/2024 9:38 AM EDT 10/12/2024 10:40 AM EDT Narrative [facility] - 10/16/2024 11:37 AM EDT ----- ------- Name: Aura Childress Age/Sex: 49/F : 1975 [facility]#: [id number] Unit#: [id number] Attend Dr: Angeles Walker MD Re10/12/24 Status: [facility] Location: [facility] Disch: ----- ------- SPEC : [id number] RECD: 10/12/24-1040 STATUS: SHANA MATHEWS NUM: [id number] KAREN: 10/12/24-0938 [facility] DR: Angeles Walker MD ENTERED: 10/12/24-1124 SP TYPE: Surgical OTHR DR: Beth Donnelly MD ORDERED: HE Stain/, Gross Micro L4/5, Special st. 2/2, AB/PAS/2 Diagnosis A. Duodenum, biopsy: Duodenal mucosa [...] ON NEXT PAGE ----- ------- Name: Aura Childress Age/Sex: 49/F : 1975 Unit#: [id number] Attend Dr: Angeles Walker MD Re10/12/24 Status: [facility] Location: [facility] Disch: ----- ------- SPEC : [id number] RECD: 10/12/24 STATUS: SHANA MATHEWS NUM: [id number] KAREN: 10/12/2438 [facility] DR: Angeles Walker MD ENTERED: 10/12/24 SP TYPE: Surgical OTHR DR: Beth Donnelly MD ORDERED: HE Stain/, Gross Micro L4/5, Special st. 2/2, AB/PAS/2 [...] and B Copies To: Beth Donnelly MD [facility] [address] [place], [place] [phone] Angeles Walker MD [facility] [address] [place] [address] [email or web address] ----- ------- Signed (signature on file) Enrike Huitron MD 10/16/24 1137 ----- ------- END OF REPORT us Generic External Data Provider LAB BLOOD ORDERAB LES Final Result [facility] [address] [place] [address] [phone] * HCG, Qualitative, Urine (10/12/2024 8:30 AM EDT) Urine NEGATIVE NEGATIVE [facility] Comment:This test was develo ped to detect early . Falsenegative results may occur after the 5th - 7th week ofpregnancy when using this test method. If clinicallyindicated, consider a serum hCG. 10/12/2024 8:30 AM EDT 10/12/2024 8:36 AM EDT us Generic External Data Provider LAB URINE ORDERAB LES Final Result Performing Organization Address [facility] Co de Phone Number [facility] [address] [place] [phone] * (ABNORMAL) Lipid Panel, Standard (09/13/2024 9:28 AM EDT) Triglycerides 122 <150 mg/dL [facility] Comment:Desirable Triglyceri de: less than 150 mg/dLBorderline High Triglyceride 150-199 mg/dLHigh Triglyceride: 200-499 mg/dLVery High Triglyceride: greater than or equal to 5OO mg/dL Cholesterol 212(H) <200 mg/dL [facility] Comment:Desirable Cholestero l: less than 200 mg/dLBorderline High Cholesterol: 200-239 mg/dLHigh Cholesterol: greater than 239 mg/dL LDL Cholesterol Calculated 137(H) <100 mg/dL [facility] Comment:Desirable LDL: less than 100 mg/dLNear Optimal/Above Optimal LDL: 110- 129 mg/dLBorderline High LDL: 130-159 mg/dLHigh LDL: 160-189 mg/dLVery High LDL: greater than or equal to 190 mg/dL HDL Cholesterol 51 >40 mg/dL [facility] Comment:Desirable HDL: great er than 40 mg/dL Note: This HDL assay may give artificially low results in patients with liver disease. Blood Venous blood specimen / Unknown 09/13/2024 9:28 AM EDT 09/13/2024 11:10 AM EDT us Beth Gomez MD LAB BLOOD ORDERABLES Final Result Performing Organization Address [facility]/ZIP Co de Phone Number [facility] [address] [place] [phone] * BI Mammogram Screening Tomosynthesis Bilateral (08/29/2024 2:56 PM EDT) Anatomical Region Laterality Modality Breast Bilateral Mammography 08/29/2024 2:56 PM EDT Narrative 09/03/2024 8:11 PM EDT [place] [facility] [address] [place] [address] Mammography Report Signed Patient: Aura Childress MR#: [id number] : 1975 Acct:[id number] Age/Sex: 49 / F ADM Date: 08/29/24 Loc: HO.MAMMO Attending Dr: Beth Gomez MD Ordering Physician: Beth Donnelly MD Results: 1Negative Date of Service: 08/29/24 Follow Up: 1 Year From Orig inal Mammogram Procedure(s): MM tomosynthesis screening BI Accession Number(s): [id number] cc: Beth Donnelly MD EXAMINATION: MM SCREENING [...] Bibi Centeno DO in OV> 09/03/242007 DD/ 55 TD/TT: 08/29/24 1518 Data Warehousing Manager: Procedure Note Donotuseinterpreter, Image - 09/03/2024 [facility] [address] [place] [address] [place] [address] Mammography Report Signed Patient: Aura Childress AMR#: [id number] : 1975Acct:[id number] Age/Sex: 49 / FADM Date: 08/29/24 Loc: HO.MAMMO Attending Dr: Beth Gomez MD Ordering Physician: Beth Donnelly MDResults: 1Negative Date of Service: 08/29/24Follow Up: 1 Year From Orig inal Mammogram Procedure(s): MM tomosynthesis screening BI Accession Number(s): [id number] cc: Beth Donnelly MD EXAMINATION: MM SCREENING [...] Bibi Centeno DO in OV> 09/03/242007 DD/ 55 TD/TT: 08/29/24 1518 Data Warehousing Manager: us Beth Gomez MD IMG BI PROCEDURES Rhett elliott Result - Final * HPV DNA, Low/High Risk (08/24/2024 11:34 AM EDT) HPV High Risk Negative Negative [facility] HPV Genotype 16 Negative Negative [facility] HPV Genotype 18 Negative Negative [facility] Comment:HPV testing performe d at [facility] (CLIA#[id number]), [address] [place] [phone].Testing for HPV was performed using the Tai [...] 4 AM EDT 08/25/2024 6:50 AM EDT Beth Gomez MD LAB BLOOD ORDERABLES Final Result [facility] [address] [place] [phone] * Pap Smear (08/24/2024 11:34 AM EDT) Swab 08/24/2024 11:3 4 AM EDT 08/25/2024 6:50 AM EDT Narrative [facility] - 08/30/2024 9:34 AM EDT ----- ------- Name: Aura Childress Age/Sex: 49/F : 1975 Unit#: [id number] Attend Dr: Beth Donnelly MD Re08/24/24 Status: DEP REF Location: [facility] Disch: ----- ------- SPEC : [id number] RECD: 08/25/24 STATUS: SHANA MAHTEWS NUM: [id number] KAREN: 08/24/24-1134 [facility] DR: Beth Donnelly MD ENTERED: 08/25/2497 SP TYPE: Pap Smr OTHR DR: ORDERED: Pap Smear Interpretation Satisfactory for evaluation. Negative for intraepithelial lesion or malignancy. HPV High Risk: Negative HPV Genotyping 16: Negative HPV Genotyping 18: Negative Clinical Information LMP:UNKOWN Previous PAP test:NORMAL Other surgery: Other history: ----- ------- Signed (signature on file) AUREA Yoder ([facility]) 08/30/24 0934 ----- ------- END OF REPORT us Beth Gomez MD LAB CYTOLOGY ORDERABL ES Final Result Performing Organization Address City/[facility]/ZIP Co de Phone Number [facility] [address] [place] [address] [phone] HIV AB/AG (06/24/2019 9:00 AM EST) [facility] HIV AG/AB NONREACTIVE NR FOUNDATI ON LAB [...] limit of detection of this assay. [employer] HIV Ag/Ab Combo assay result and supplemental assay results should be interpreted in conjunction with the patient's clinical presentation, history and other laboratory results. If the results are inconsistent with clinical evidence, additional testing is suggested to confirm the result. 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
--- OUTSIDE RECORDS SUMMARY | 2024-12-23 14:15 | XMS_ITS | Clinical Summary ---
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 18 g 5 01/11/20 25 Active albuterol HFA (PROAIR HFA ; PROVENTIL HFA ; VENTOLIN HFA) 90 mcg/actuation inhaler Inhale 2 puffs by mouth every 4 (four) hours if needed for wheezing. 18 g 5 12/12/19 25 Discontinued predniSONE (DELTASONE) 50 mg tablet Take 1 tablet (50 mg total) by mouth 1 (one) time each day for 5 days. 5 each 5 12/12/19 25 Discontinued benzonatate (TESSALON) 100 mg capsule Take 1 capsule (100 mg total) by mouth 3 (three) times a day if needed for cough for up to 7 days. Do not crush or chew. 20 capsule 5 12/12/19 25 Discontinued albuterol HFA (PROAIR HFA ; PROVENTIL HFA ; VENTOLIN HFA) 90 mcg/actuation inhaler Inhale 2 puffs by mouth every 4 (four) hours if needed for wheezing. 18 g 5 12/12/19 25 Discontinued benzonatate (TESSALON) 100 mg capsule Take 1 capsule (100 mg total) by mouth 3 (three) times a day if needed for cough for up to 7 days. Do not crush or chew. 20 capsule 5 12/12/19 25 Discontinued predniSONE (DELTASONE) 50 mg tablet Take 1 tablet (50 mg total) by mouth 1 (one) time each day for 5 days. 5 each 5 12/12/19 25 Discontinued predniSONE (DELTASONE) 50 mg tablet Take 1 tablet (50 mg total) by mouth 1 (one) time each day for 5 days. 5 each 5 12/17/19 25 benzonatate (TESSALON) 100 mg capsule Take 1 capsule (100 mg total) by mouth 3 (three) times a day if needed for cough for up to 7 days. Do not crush or chew. 20 capsule 5 12/19/19 25 Active Problems No known active problems Encounters Date Type Department Care Team Description 12/11/2024 11:27 PM EDT - 12/12/2024 12:11 AM EDT Emergency [facility] [address] [place] [phone] Acute bronchitis, unspecified organism (Primary Dx); Acute cough Discharge Disposition: Home or Self Care 11/27/2024 3:00 PM EDT Consult Orthopedic Surgery - [place] [address] [place] [address] [place] [phone] Lisa Mir PA Calcific tendinitis of left shoulder (Primary Dx); Pain in left shoulder; Arthritis of left acromioclavicular joint from Last 3 Months Medical History Medical History Date Comments HTN (hypertension) Social History Tobacco Use Types Packs/Day Years [...] Sign Reading Time Taken Comments Blood Pressure 102/80 12/11/2024 11:21 PM EDT Pulse 85 12/11/2024 11:21 PM EDT Temperature 36.7 C (98.1 F) 12/11/2024 11:21 PM EDT Respiratory Rate 20 12/11/2024 11:21 PM EDT Oxygen Saturation 98% 12/11/2024 11:21 PM EDT Inhaled Oxygen Concentration - - Weight 104 kg (230 lb) 12/11/2024 3:24 PM EDT Height 160 cm (5' 3 ) 12/11/2024 3:24 PM EDT Body Mass Index 40.74 12/11/2024 3:24 PM EDT Plan of Treatment Health Maintenance Due Date Last Done Comments Breast Cancer Screening 1974 DTaP,Tdap,and Td Vaccines (1 - Tdap) 1993 Hepatitis B Vaccines (1 of 3 - 19+ 3-dose series) 1993 Colorectal Cancer Screening: Colonoscopy 05/02/2022 HIV Screening 05/02/2022 Hepatitis C Screening 05/02/2022 Social Influencers of Health Screening 05/02/2022 COVID-19 Vaccine ( - season) 2024 04/28/2021, 07/26/2020, 07/05/2020 Depression Screening 05/31/2024 Pneumococcal Vaccine: 50+ Years (1 of 1 - PCV) 2024 Zoster Vaccines (2 of 2) 11/22/2024 09/27/2024 Influenza Vaccine (#1) 2025 , 09/09/2021, 03/27/2020, Additional history exists Hypertension/CHF/CAD Annual BMP Blood Test 12/11/2025 12/11/2024, 09/13/2024, 08/20/2024 Cervical Cancer Screening: Pap Smear [...] Diagnosis Comments CBC WITH AUTO DIFFERENTIAL STAT 12/11/2024 4:40 PM EDT BASIC METABOLIC PANEL STAT 12/11/2024 4:40 PM EDT CBC AND DIFFERENTIAL STAT 12/11/2024 4:40 PM EDT XR CHEST 2 VIEWS STAT 12/11/2024 3:38 PM EDT XR SHOULDER 2+ VIEWS LEFT Routine 11/27/2024 3:05 PM EDT Pain in left shoulder from Last 3 Months Results * CBC auto differential (12/11/2024 4:40 PM EDT) WBC 9.7 4.8 - 10.8 K/mcL LAB HEMETOLOGY METHOD 12/11/2024 5:28 PM EDT [facility] RBC 4.80 3.80 - 4.80 M/mcL LAB HEMETOLOGY METHOD 12/11/2024 5:28 PM EDT [facility] Hemoglobin 14.5 11.5 - 16.0 g/dL LAB HEMETOLOGY METHOD 12/11/2024 5:28 PM EDT [facility] Hematocrit 44.6 35.0 - 47.0 % LAB HEMETOLOGY METHOD 12/11/2024 5:28 PM EDT [facility] MCV 92.1 79.0 - 98.0 FL LAB HEMETOLOGY METHOD 12/11/2024 5:28 PM EDT [facility] MCH 30.0 27.0 - 32.0 pcg LAB HEMETOLOGY METHOD 12/11/2024 5:28 PM EDT [facility] MCHC 32.5 32.0 - 37.0 g/dL LAB HEMETOLOGY METHOD 12/11/2024 5:28 PM EDT [facility] RDW 14.2 11.0 - 15.0 % LAB HEMETOLOGY METHOD 12/11/2024 5:28 PM EDT [facility] Platelets 327 130 - 400 K/mcL LAB HEMETOLOGY METHOD 12/11/2024 5:28 PM EDT [facility] MPV 10.8 7.0 - 11.0 FL LAB HEMETOLOGY METHOD 12/11/2024 5:28 PM EDT [facility] NRBC 0.0 <1.0 % LAB HEMETOLOGY METHOD 12/11/2024 5:28 PM EDT [facility] NRBC Absolute 0.00 <0.10 K/mcL LAB HEMETOLOGY METHOD 12/11/2024 5:28 PM EDT [facility] Neutrophils Relative 63.0 % LAB HEMETOLOGY METHOD 12/11/2024 5:28 PM EDT [facility] Lymphocytes Relative 29.9 % LAB HEMETOLOGY METHOD 12/11/2024 5:28 PM EDT [facility] Monocytes Relative 5.0 % LAB HEMETOLOGY METHOD 12/11/2024 5:28 PM EDT [facility] Eosinophils Relative 1.4 % LAB HEMETOLOGY METHOD 12/11/2024 5:28 PM EDT [facility] Basophils Relative 0.4 % LAB HEMETOLOGY METHOD 12/11/2024 5:28 PM EDT [facility] Immature Granulocytes Relative 0.3 % LAB HEMETOLOGY METHOD 12/11/2024 5:28 PM EDT [facility] Neutrophils Absolute 6.11 1.50 - 7.00 K/mcL LAB HEMETOLOGY METHOD 12/11/2024 5:28 PM EDT [facility] Lymphocytes Absolute 2.90 1.00 - 5.00 K/mcL LAB HEMETOLOGY METHOD 12/11/2024 5:28 PM EDT [facility] Monocytes Absolute 0.49 0.20 - 1.00 K/mcL LAB HEMETOLOGY METHOD 12/11/2024 5:28 PM EDT [facility] Eosinophils Absolute 0.14 0.00 - 0.50 K/mcL LAB HEMETOLOGY METHOD 12/11/2024 5:28 PM EDT [facility] Basophils Absolute 0.04 0.00 - 0.20 K/mcL LAB HEMETOLOGY METHOD 12/11/2024 5:28 PM EDT [facility] Immature Granulocytes Absolute 0.03 0.00 - 0.03 K/mcL LAB HEMETOLOGY METHOD 12/11/2024 5:28 PM EDT [facility] Blood Venous blood specimen / Unknown Venipuncture / Unknown 12/11/2024 4:40 PM EDT 12/11/2024 5:21 PM EDT us Leobardo Tavares MD LAB BLOOD ORDERABLES Final Result [facility] [address] [place] [address], * (ABNORMAL) Basic metabolic panel (12/11/2024 4:40 PM EDT) Sodium 138 133 - 145 mmol/L LAB CHEMISTRY METHOD 12/11/2024 5:48 PM EDT [facility] Potassium 3.3(L) 3.5 - 5.5 mmol/L LAB CHEMISTRY METHOD 12/11/2024 5:48 PM EDT [facility] Chloride 102 96 - 110 mmol/L LAB CHEMISTRY METHOD 12/11/2024 5:48 PM [facility] CO2 31 21 - 32 mmol/L LAB CHEMISTRY METHOD 12/11/2024 5:48 PM [facility] Anion Gap 5 3 - 11 LAB CHEMISTRY METHOD 12/11/2024 5:48 PM [facility] Glucose 106(H) 70 - 100 mg/dL LAB CHEMISTRY METHOD 12/11/2024 5:48 PM [facility] BUN 12 5 - 25 mg/dL LAB CHEMISTRY METHOD 12/11/2024 5:48 PM [facility] Creatinine 0.76 0.50 - 1.10 mg/dL LAB CHEMISTRY METHOD 12/11/2024 5:48 PM [facility] eGFR 96 >=60 mL/min/1. 73m2 LAB CHEMISTRY METHOD 12/11/2024 5:48 PM T [facility] Comment:Calculation based on the Chronic Kidney Disease Epidemiology Collaboration (CKD-EPI) equation refit without adjustment for race. BUN/Creatinine Ratio 15.8 LAB CHEMISTRY METHOD 12/11/2024 5:48 PM [facility] Calcium 9.7 8.5 - 10.5 mg/dL LAB CHEMISTRY METHOD 12/11/2024 5:48 PM [facility] Blood Venous blood specimen / Unknown Venipuncture / Unknown 12/11/2024 4:40 PM EDT 12/11/2024 5:21 PM EDT us Leobardo Tavares MD LAB BLOOD ORDERABLES Final Result [facility] [address] [place] [address], * XR Chest 2 Views (12/11/2024 3:38 PM EDT) Anatomical Region Laterality Modality Body Radiographic Sonal ging 12/11/2024 3:41 PM EDT Impressions 12/11/2024 3:42 PM EDT Impression: No active pulmonary process identified. Telerad PA ([id number]) -------- FINAL REPORT -------- Dictated By: Lilia Agarwal Dictated Date: 12/11/2024 15:41 ET Assigned Physician: Lilia Agarwal Reviewed and Electronically Signed By: Lilia Agarwal Signed Date: 12/11/2024 15:42 ET Workstation ID: [id number] Transcribed By: Self Edit Transcribed Date: 12/11/2024 15:41 ET Narrative 12/11/2024 3:42 PM EDT History: Persistent cough. Comparison: No comparison imaging at this institution. Findings: PA and lateral views. The cardiomediastinal silhouette, hilar contours and pulmonary vascularity are within normal limits. The lungs are clear. The costophrenic angles are sharp. Minimal thoracic vertebral endplate spurring is seen. Procedure Note Lilia Agarwal MD - 12/11/2024 History: Persistent cough. Comparison: No comparison imaging at this institution. Findings: PA and lateral views. The cardiomediastinal silhouette, hilar contours andpulmonary vascularity are within normal limits. The lungs are clear. Thecostophrenic angles are sharp. Minimal thoracic vertebral endplate spurring is seen. IMPRESSION: Impression: No active pulmonary process identified. Telerad PA ([id number]) -------- FINAL REPORT -------- Dictated By: Lilia Agarwal Dictated Date: 12/11/2024 15:41 ET Assigned Physician: Lilia Agarwal Reviewed and Electronically Signed By: Lilia Agarwal Signed Date: 12/11/2024 15:42 ET Workstation ID: [id number] Transcribed By: Self Edit Transcribed Date: 12/11/2024 15:41 ET Leobardo Tavares MD IMG XR PROCEDURES Final Res ult * XR Shoulder 2+ Views Left (11/27/2024 [...] joint, evidence of calcific tendinitis Lisa TRUJILLO IMG XR PROCEDURES Final Result from Last 3 Months Insurance [facility] [address] PL[address] Care Teams Refrigeration Engineering Teacher Relationship Specialty Start Date End Date Beth Donnelly MD [address] [place] [phone] PCP - General Internal Medicine 10/05/24
[2024-12-23 15:20] LABS: Chlamydia pneumoniae PCR Not Detected (Not Detect.); Coronavirus 229E PCR Not Detected (Not Detect.); Coronavirus HKU1 PCR Not Detected (Not Detect.); Coronavirus NL63 PCR Not Detected (Not Detect.); Coronavirus OC43 PCR Not Detected (Not Detect.); RSV PCR Not Detected (Not Detect.); Rhino/Enterovirus PCR Not Detected (Not Detect.)
[2024-12-23 15:25] LABS: Influenza A H1 PCR Not Detected (Not Detect.); Influenza A H1-2009 PCR Not Detected (Not Detect.); Influenza A H3 PCR Not Detected (Not Detect.); SARS-CoV-2 PCR Not Detected (Not Detect.)
== END 2024-12-23 14:13 | disposition home or self-care (01) ==
LOC: HO.LNP 14:12
PROVIDERS: Visit Provider Internal Medicine
DX: J01.40 Acute pansinusitis, unspecified (principal); B34.8 Other viral infections of unspecified site
CPT/HCPCS: 87633

== ENCOUNTER 2024-12-26 11:52 | Outpatient (REF) | payer OTHER, SELFPAY ==
--- OUTSIDE RECORDS SUMMARY | 2024-12-26 12:52 | XMS_ITS | Clinical Summary ---
Author Organization [employer] Address [address] [place] [address] 7 [place] [address] Care Team Providers Care Field Supervisor Name Role Phone Beth Donnelly MD [...] by mouth Once per day. 30 tablet 08/25/19 25 2025 Active Blood Pressure Monitoring (Blood Pressure Cuff) miscIndications :Uncontrolled hypertension 1 each Once daily. 1 each 08/25/19 25 Active famotidine (Pepcid) 20 MG tabletIndicatio ns:Gastroesopha geal reflux disease, unspecified whether esophagitis present Take 1 tablet (20 mg) by mouth 2 times daily. 60 tablet 11 10/18/19 25 2025 Active albuterol 108 (90 Base) MCG/ACT inhaler Inhale [...] crush, chew, or split. 30 tablet 12/24/19 Active fluticasone (Flonase) 50 MCG/ACT nasal sprayIndication s:Subacute pansinusitis Administer 1-2 sprays into each nostril Once per day for 14 days. Shake gently. Before first use, prime pump. After use, clean tip and replace cap. 16 g 12/24/19 25 2024 Active clotrimazole (Mycelex) 10 MG trocheIndicatio ns:Oral thrush Take 1 tablet (10 mg) by mouth 5 (five) times a day for 10 days. 50 tablet 12/27/19 25 2024 Active phentermine 37.5 MG capsuleIndicati ons:Class 3 severe obesity due to excess calories with serious comorbidity and body mass index (BMI) of 40.0 to 44.9 in adult Take 1 capsule (37.5 mg) by mouth before breakfast. 30 capsule 1 12/27/19 25 2024 Active topiramate (Topamax) 25 MG tabletIndicatio ns:Class 3 severe obesity due to excess calories with serious comorbidity and body mass index (BMI) of 40.0 to 44.9 in adult Take 1 tablet (25 mg) by mouth Once per day. 30 tablet 1 12/27/19 25 2025 Active phentermine 15 MG capsuleIndicati ons:Class 3 severe obesity due to excess calories with serious comorbidity and body mass index (BMI) of 40.0 to 44.9 in adult Take 1 capsule (15 mg) by mouth before breakfast. 30 capsule 1 10/18/19 25 2024 Discontinued topiramate (Topamax) 25 MG tabletIndicatio ns:Class 3 severe obesity due to excess calories with serious comorbidity and body mass index (BMI) of 40.0 to 44.9 in adult Take 1 tablet (25 mg) by mouth Once per day. 30 tablet 1 10/18/19 25 2024 Discontinued(R eorder (will not trigger notification to Pharmacy)) acetaminophen (Tylenol 8 Hour) 650 MG ER [...] Active Problems Problem Noted Date Diagnosed Date Oral thrush 12/26/2024 Subacute pansinusitis 12/23/2024 Assessment & Plan (12/23/2024 [...] Encounters Date Type Department Care Team Description 12/26/2024 11:15 AM EDT Office Visit [facility] [address] [place] [address] [phone] Beth Donnelly MD Primary hypertension (Primary Dx); Oral thrush; Class 3 severe obesity due to excess calories with serious comorbidity and body mass index (BMI) of 40.0 to 44.9 in adult; Hypokalemia 12/26/2024 Travel 12/25/2024 Telephone [facility] [address] [place] [address] [phone] Beth Donnelly MD Appointment 12/23/2024 9:20 AM EDT Office Visit [facility] [address] [place] [phone] Jim Barboza MD Subacute pansinusitis (Primary Dx); Parainfluenza infection 12/23/2024 Travel 12/15/2024 9:00 AM EDT Office Visit [facility] [address] [place] [address] [phone] Beth Bob MD Subacute cough (Primary Dx); Bronchitis; Hypokalemia 12/15/2024 Results Follow-Up [facility] [address] [place] [address] [phone] Beth Bob MD Comprehensive Metabolic Panel, Magnesium, Respiratory Viral Panel PCR 12/15/2024 Orders Only [address] [phone] Beth Bob MD Hypokalemia (Primary Dx) 12/15/2024 Telephone [facility] [address] [place] [phone] Beth Donnelly MD Appointment Request 12/15/[address] [phone] Beth Bob MD 12/15/[address] [address] Beth Bob MD 12/15/2024 Travel 12/14/2024 Telephone [facility] [address] [place] [address] Beth Donnelly MD Nurse Triage 10/30/2024 3:00 PM EDT Office Visit [facility] ADULT DENTAL [address] [place] [address] Lencho Peres DDS Impacted third molar tooth (Primary Dx); Pain, dental; Uncontrolled hypertension 10/20/2024 Telephone [facility] [address] [place] [address] [phone] Beth Donnelly MD Medication Question 10/17/2024 2:30 PM EDT Telemedicine [address] [phone] Beth Donnelly MD Gastroesophageal reflux disease, unspecified whether esophagitis present; Anxiety with depression; Class 3 severe obesity due to excess calories with serious comorbidity and body mass index (BMI) of 40.0 to 44.9 in adult 10/17/2024 Travel 10/17/[address] [phone] Chanel Hudson Offer additional support for services 10/12/2024 Orders Only GENERIC EXTERNAL DATA DEPARTMENT Provider, Generic External Data 10/09/2024 3:00 PM EDT Nutrition [facility] DIABETES/NUTRITIO N [address] [place], [place] [phone] Class 3 severe obesity due to excess calories with serious comorbidity and body mass index (BMI) of 40.0 to 44.9 in adult 10/09/2024 Travel 10/09/[address] [phone] Beth Donnelly MD call back needed 09/27/[address] [phone] Beth Donnelly MD Anxiety with depression from [...] Sign Reading Time Taken Comments Blood Pressure 115/82 12/26/2024 11:06 AM EDT Pulse 82 12/26/2024 11:06 AM EDT Temperature 36.6 C (97.8 F) 12/26/2024 11:06 AM EDT Respiratory Rate 20 12/26/2024 11:06 AM EDT Oxygen Saturation 98% 12/23/2024 8:54 AM EDT Inhaled Oxygen Concentration - - Weight 107 kg (235 lb 9.6 oz) 12/26/2024 11:06 A M EDT Height 160 cm (5' 3 ) 12/26/2024 11:06 AM EDT Body Mass Index 41.73 12/26/2024 11:06 AM EDT Plan of Treatment Upcoming Encounters Date Type Department Care Team (Late st Contact Info) Description 01/02/2025 1:00 PM EDT Immunization [facility] [address] [place] [phone] 01/30/2025 3:00 PM EDT Office Visit [facility] ADULT DENTAL [address] [place] [phone] Alma Tellez 02/28/2025 10:00 AM EDT Office Visit [facility] [address] [place] [phone] Beth Donnelly MD [address] [place] [address] Health Maintenance Due Date Last Done Comments CT Colonography 1975 Colonoscopy 1975 Colorectal Cancer Screening 1975 FIT DNA/Cologuard 1975 FIT 1975 FOBT 1975 Sigmoidoscopy 1975 Family Planning (PISQ) 1989 Hepatitis C Screening 1992 DTaP/Tdap/Td Vaccines (1 - Tdap) 1993 Hepatitis B Vaccines (1 of 3 - 19+ 3-dose series) 1993 COVID-19 Vaccine (4 - season) 2024 04/28/2021, [...] 03/27/2020, Additional history exists Mammogram 08/29/2025 08/29/2024, 07/2023, 07/25/2022, Additional history exists Alcohol/Substance Use Screening 12/15/2025 12/15/2024 Depression Screening 12/15/2025 12/15/2024, 12/16/19 SDOH Screening 12/15/2025 12/15/2024 Disability Screening 12/23/2025 12/23/2024 Tobacco Screening 12/26/2025 12/26/2024 Dental X-Ray: Full Mouth 11/01/2027 025, 07/28/2021, [...] Procedure Name Priority Date/Time Associated Diagnosis Comments RESPIRATORY VIRAL PANEL PCR Routine 12/23/2024 9:26 AM EDT Subacute pansinusitis Parainfluenza infection POCT INFLUENZA A (ID NOW RAPID MOLECULAR) [...] Recently Relevant to Health Maintenance Results * Respiratory Viral Panel PCR (12/23/2024 9:26 AM EDT) Only the most recent of2 resultswithin the time period is included. Adenovirus PCR Not Detected Not Detect. [facility] Bordetella pertussis PCR Not Detected Not Detect. [facility] Comment:Interpret results wi th caution. If B. pertussis isspecifically suspected, additional testing using analternate method is recommended. Bordetella parapertussis PCR Not Detected Not Detect. [facility] Chlamydia pneumoniae PCR Not Detected Not Detect. [facility] Coronavirus 229E PCR Not Detected Not Detect. [facility] Coronavirus HKU1 PCR Not Detected Not Detect. [facility] Coronavirus NL63 PCR Not Detected Not Detect. [facility] Coronavirus OC43 PCR Not Detected Not Detect. [facility] SARS-CoV-2 PCR Not Detected Not Detect. [facility] Comment:SARS-CoV-2 not detec elliott by real-time RT-PCR.Note: If clinical suspicion for Sars-CoV-2 is high, continueto maintain precautions and consider repeat testing.Test results should be interpreted in the context ofclinical findings and other laboratory data.Rare polymorphisms exist that could lead to false-negativeor false-positive results. If results do not match theclinical findings, additional testing should be considered.Results reported to JUAN ROWLEY.This test has been authorized by the FDA under the EmergencyUse Authorization (EUA) for use by authorized laboratories. Influenza A PCR Not Detected Not Detect. [facility] Influenza A Subtype H1 Not Detected Not Detect. [facility] Influenza A H1-2009 PCR Not Detected Not Detect. [facility] Influenza A Subtype H3 Not Detected Not Detect. [facility] Influenza B PCR Not Detected Not Detect. [facility] Human metapneumovirus PCR Not Detected Not Detect. [facility] Rhino/Enterovirus PCR Not Detected Not Detect. [facility] Mycoplasma pneumoniae PCR Not Detected Not Detect. [facility] Parainfluenza 1 PCR Not Detected Not Detect. [facility] Parainfluenza 2 PCR Not Detected Not Detect. [facility] Parainfluenza 3 PCR Not Detected Not Detect. [facility] Parainfluenza 4 PCR Not Detected Not Detect. [facility] RSV PCR Not Detected Not Detect. [facility] Resp Panel NA Note See Note H [facility] Comment:All results must be correlated [...] assay is performed by Multiplexed PCR, utilizing [employer] Film Array. Swab 12/23/2024 9:26 AM EDT 12/23/2024 2:13 PM EDT us Jim Barboza MD LAB BLOOD ORDERABLES Fin al Result [facility] [address] [place] [address] [phone] * POCT Rapid Influenza B THOMAS ID NOW (12/23/2024 9:25 AM EDT) Influenza B Negative Negative, Indeterminate [facility] QC Media Lot # [id number] [facility] Lot# Expiration Date [facility] Swab 12/23/2024 9:25 AM EDT Jim Barboza MD POINT OF CARE TEST ENTER /EDIT ORDERABLES Final Result Performing Organization Address [facility]/ZIP Co de Phone Number [facility] [address] [place] [phone] * POCT Rapid Influenza A THOMAS ID NOW (12/23/2024 9:25 AM EDT) [facility] Influenza A Negative Negative, Indeterminate [facility] QC Media Lot # [id number] [facility] Lot# Expiration Date [facility] Swab 12/23/2024 9:25 AM EDT Jim Barboza MD POINT OF CARE TEST ENTER /EDIT ORDERABLES Final Result Performing Organization Address [facility]/ZIP Co de Phone Number [facility] [address] [place] [phone] * Magnesium (12/15/2024 10:16 AM EDT) [facility] Magnesium 2.4 1.6 - 2.6 mg/dL [facility] Blood Venous blood specimen / Unknown 12/15/2024 10:16 AM EDT 12/15/2024 11:13 AM EDT us Beth Menjivar MD LAB BLOOD ORDERAB LES Final Result Performing Organization Address [facility]/ZIP Co de Phone Number [facility] [address] [place] [address] [phone] * (ABNORMAL) Comprehensive Metabolic Panel (12/15/2024 10:16 AM EDT) [facility] Sodium 143 135 - 145 mmol/L [facility] Potassium 3.2(L) 3.3 - 5.1 mmol/L [facility] Chloride 105 96 - 108 mmol/L [facility] Carbon Dioxide 29 22 - 29 mmol/L [facility] Anion Gap 12 12 - 20 [facility] Urea Nitrogen (BUN) 17(H) 9 - 16 mg/dL [facility] Creatinine, Serum 0.76 0.5 - 1.4 mg/dL [facility] Estimated Glomerular Filt Rate >60 [facility] Comment:Chronic Kidney Disea se: Estimated GFR < 60 mL/min/1.72s5Vionqp Kidney Disease: Estimated GFR < 15 mL/min/1.73m2 Glucose 92 60 - 115 mg/dL [facility] Calcium 8.9 8.4 - 10.2 mg/dL [facility] Bilirubin, Total 0.7 0.0 - 1.0 mg/dL [facility] Aspartate Amino Transferase 14 5 - 31 U/L [facility] Alanine Aminotransferase 12 0 - 31 U/L [facility] Total Protein 7.5 6.5 - 8.0 g/dL [facility] Albumin Level 4.3 3.5 - 5.0 g/dL [facility] Alkaline Phosphatase 59 39 - 117 U/L [facility] Blood Venous blood specimen / Unknown 12/15/2024 10:16 AM EDT 12/15/2024 11:13 AM EDT us Beth Menjivar MD LAB BLOOD ORDERAB LES Final Result [facility] [address] [place] [phone] * Hematoxylin and Eosin Stain (10/12/2024 9:38 AM EDT) 10/12/2024 9:38 AM EDT 10/12/2024 10:40 AM EDT Narrative [facility] - 10/16/2024 11:37 AM EDT ----- ------- Name: Aura Childress Age/Sex: 49/F [facility] 1975 [id number]#: [id number] Attend Dr: Angeles Walker MD Re10/12/24 Status: [facility] Location: [facility] Disch: ----- ------- SPEC : [id number] RECD: 10/12/24-0 STATUS: SHANA MATHEWS NUM: [id number] KAREN: 10/12/24-0938 [facility] DR: Angeles Walker MD ENTERED: 10/12/24 TYPE: Surgical OTHR DR: Beth Donnelly MD ORDERED: HE Stain/, Gross Micro L4/5, Special st. 2/, AB/PAS/2 [...] NEXT PAGE ----- ------- Name: Aura Childress Fritz Age/Sex: 49/F : 1975 Unit#: [id number] Attend Dr: Angeles Walker MD Re10/12/24 Status: [facility] Location: [facility] Disch: ----- ------- SPEC : [id number] RECD: 10/12/24 STATUS: SHANA MATHEWS NUM: [id number] KAREN: 10/12/2438 [facility] DR: Angeles Walker MD ENTERED: 10/12/24 SP TYPE: Surgical OTHR DR: Beth Donnelly MD ORDERED: HE /, Gross Micro L4/5, Special st. 2/2, AB/PAS/2 Gross Description (Continued) Part C: Received in formalin labeled middle esophagus bx's are 2 swenson-pink irregular tissue fragments each measuring 0.25 cm, submitted in toto in a cassette labeled C. Part D: Received in formalin labeled right sided colon bx's are 2 tasi-pink irregular tissue fragments each measuring 0.35 cm, submitted in toto in a cassette labeled D. Part E: Received in formalin labeled left sided colon bx's are 3 tsai irregular and rectangular tissue fragments ranging from 0.25-0.4 cm, submitted in toto in a cassette labeled E. CEDS Special studies ordered and performed: AB/PAS stains on A and B Copies To: Beth Donnelly MD [facility] [address] [place], [place] [phone] Angeles Walker MD [facility] [address] [place] [phone] [email or web address] Talent ----- ------- Signed (signature on file) Enrike Huitron MD 10/16/24 1137 ----- ------- END OF REPORT us Generic External Data Provider LAB BLOOD ORDERAB LES Final Result [facility] [address] [place] [address] [phone] * HCG, Qualitative, Urine (10/12/2024 8:30 AM EDT) Urine NEGATIVE NEGATIVE [facility] Comment:This test was develo ped to detect early . Falsenegative results may occur after the 5th - 7th week ofpregnancy when using this test method. If clinicallyindicated, consider a serum hCG. 10/12/2024 8:30 AM EDT 10/12/2024 8:36 AM EDT us Generic External Data Provider LAB URINE ORDERAB LES Final Result Performing Organization Address [facility] Co de Phone Number [facility] [address] [place] [phone] * (ABNORMAL) Lipid Panel, Standard (09/13/2024 9:28 AM EDT) Triglycerides 122 <150 mg/dL [facility] Comment:Desirable Triglyceri de: less than 150 mg/dLBorderline High Triglyceride 150-199 mg/dLHigh Triglyceride: 200-499 mg/dLVery High Triglyceride: greater than or equal to 5OO mg/dL Cholesterol 212(H) <200 mg/dL [facility] Comment:Desirable Cholestero l: less than 200 mg/dLBorderline High Cholesterol: 200-239 mg/dLHigh Cholesterol: greater than 239 mg/dL LDL Cholesterol Calculated 137(H) <100 mg/dL [facility] Comment:Desirable LDL: less than 100 mg/dLNear Optimal/Above Optimal LDL: 110- 129 mg/dLBorderline High LDL: 130-159 mg/dLHigh LDL: 160-189 mg/dLVery High LDL: greater than or equal to 190 mg/dL HDL Cholesterol 51 >40 mg/dL [facility] Comment:Desirable HDL: great er than 40 mg/dL Note: This HDL assay may give artificially low results in patients with liver disease. Blood Venous blood specimen / Unknown 09/13/2024 9:28 AM EDT 09/13/2024 11:10 AM EDT us Beth Gomez MD LAB BLOOD ORDERABLES Final Result Performing Organization Address [facility]/ZIP Co de Phone Number [facility] [address] [place] [phone] * BI Mammogram Screening Tomosynthesis Bilateral (08/29/2024 2:56 PM EDT) Anatomical Region Laterality Modality Breast Bilateral Mammography 08/29/2024 2:56 PM EDT Narrative 09/03/2024 8:11 PM EDT [facility] [address] [place] [address] Mammography Report Signed Patient: Aura Childress MR#: [id number] : 1975 Acct:[id number] Age/Sex: 49 / F ADM Date: 08/29/24 Loc: HO.MAMMO Attending Dr: Beth Gomez MD Ordering Physician: Beth Donnelly MD Results: 1Negative Date of Service: 08/29/24 Follow Up: 1 Year From Orig ina Mammogram Procedure(s): MM tomosynthesis screening BI Accession Number(s): [id number] cc: Beth Donnelly MD EXAMINATION: MM SCREENING [...] OV> 09/03/242007 DD/ 55 TD/TT: 08/29/24 1518 Poultry Farmworker: Procedure Note Donotshalominterpreter, Image - 09/03/2024 [facility] [address] [place] [address] Mammography Report Signed Patient: Aura Childress AMR#: [id number] : 1975Acct:[id number] Age/Sex: 49 / FADM Date: 08/29/24 Loc: HO.MAMMO Attending Dr: Beth Gomez MD Ordering Physician: Beth Donnelly MDResults: 1Negative Date of Service: 08/29/24Follow Up: 1 Year From Orig inal Mammogram Procedure(s): MM tomosynthesis screening BI Accession Number(s): [id number] cc: Beth Donnelly MD EXAMINATION: MM SCREENING [...] OV> 09/03/242007 DD/ 55 TD/TT: 08/29/24 1518 Poultry Farmworker: us Beth Gomez MD IMG BI PROCEDURES Rhett elliott Result - Final * HPV DNA, Low/High Risk (08/24/2024 11:34 AM EDT) HPV High Risk Negative Negative [facility] HPV Genotype 16 Negative Negative [facility] HPV Genotype 18 Negative Negative [facility] Comment:HPV testing performe d at [facility] (CLIA#[id number]), [address] [place] [phone].Testing for HPV was performed using the [employer]system. The presence of HPV in the female [...] Gomez MD LAB BLOOD ORDERABLES Final Result [facility] [address] [place] [phone] * Pap Smear (08/24/2024 11:34 AM EDT) Swab 08/24/2024 11:3 4 AM EDT 08/25/2024 6:50 AM EDT Narrative [facility] - 08/30/2024 9:34 AM EDT ----- ------- Name: Aura Childress Age/Sex: 49/F : 1975 Unit#: [id number] Attend Dr: Beth Donnelly MD Re08/24/24 Status: DEP REF Location: [facility] Disch: ----- ------- SPEC : [id number] RECD: 08/25/2450 STATUS: SHANA REID NUM: [id number] KAREN: 08/24/24-1134 [facility] DR: Beth Donnelly MD ENTERED: 08/25/2435 SP TYPE: Pap Smr OTHR DR: ORDERED: Pap Smear Interpretation Satisfactory for evaluation. Negative for intraepithelial lesion or malignancy. HPV High Risk: Negative HPV Genotyping 16: Negative HPV Genotyping 18: Negative Clinical Information LMP:UNKOWN Previous PAP test:NORMAL Other surgery: Other history: ----- ------- Signed (signature on file) AUREA Yoder ([facility]) 08/30/24 0934 ----- ------- END OF REPORT Beth Gomez MD LAB CYTOLOGY ORDERABL ES Final Result [facility] [address] [place] [phone] [phone] * HIV AB/AG (06/24/2019 9:00 AM EST) Pathologist [facility] HIV AG/AB NONREACTIVE NR [facility] ON LAB [...] of detection of this assay. The [facility] Hand HIV Ag/Ab Combo assay result and supplemental assay results should be interpreted in conjunction with the patient's clinical presentation, history and other laboratory results. If the results are inconsistent with clinical evidence, additional testing is suggested to confirm the result. 06/24/2019 9:00 AM EST us Beth Gomez MD HISTORICAL/NON ORDERA BLE LABS Final Result Performing Organization Address [facility] Co de Phone Number [facility] [address] from Last 3 Months or Most Recently Relevant to Health Maintenance [facility] DENTAL - HSN PARTIAL (MEDICAID) Care Teams Field Supervisor Relationship Specialty Start Date End Date Beth Donnelly MD [address] [place] [phone] PCP - General Family Medicine 05/01/19
--- OUTSIDE RECORDS SUMMARY | 2024-12-26 12:52 | XMS_ITS | Clinical Summary ---
Author Organization [facility] Address [address] [place] [address] Phone Care Team Providers Care Tax Examining Technician Name Role Phone Beth Donnelly MD Primary [...] EDT - 12/12/2024 12:11 AM EDT Emergency [facility] Emergency [address] [place] [phone] Acute bronchitis, unspecified organism (Primary Dx); Acute cough Discharge Disposition: Home or Self Care 11/27/2024 3:00 PM EDT Consult Orthopedic Surgery - [employer] [address] [place] [address] [place] [phone] Lisa Mir PA Calcific tendinitis of left [...] LAB HEMETOLOGY METHOD 12/11/2024 5:28 PM EDT [facility] RBC 4.80 3.80 - 4.80 M/mcL LAB HEMETOLOGY METHOD 12/11/2024 5:28 PM EDT [facility] Hemoglobin 14.5 11.5 - 16.0 g/dL LAB HEMETOLOGY METHOD 12/11/2024 5:28 PM EDT [facility] Hematocrit 44.6 35.0 - 47.0 % LAB HEMETOLOGY METHOD 12/11/2024 5:28 PM EDT [facility] MCV 92.1 79.0 - 98.0 FL LAB HEMETOLOGY METHOD 12/11/2024 5:28 PM EDT [facility] MCH 30.0 27.0 - 32.0 pcg LAB HEMETOLOGY METHOD 12/11/2024 5:28 PM EDT [facility] MCHC 32.5 32.0 - 37.0 g/dL LAB HEMETOLOGY METHOD 12/11/2024 5:28 PM EDT [facility] RDW 14.2 11.0 - 15.0 % LAB HEMETOLOGY METHOD 12/11/2024 5:28 PM EDT [facility] Platelets 327 130 - 400 K/mcL LAB HEMETOLOGY METHOD 12/11/2024 5:28 PM EDT [facility] MPV 10.8 7.0 - 11.0 FL LAB HEMETOLOGY METHOD 12/11/2024 5:28 PM EDT [facility] NRBC 0.0 <1.0 % LAB HEMETOLOGY METHOD 12/11/2024 5:28 PM EDT [facility] NRBC Absolute 0.00 <0.10 K/mcL LAB HEMETOLOGY METHOD 12/11/2024 5:28 PM EDT [facility] Neutrophils Relative 63.0 % LAB HEMETOLOGY METHOD 12/11/2024 5:28 PM EDT [facility] Lymphocytes Relative 29.9 % LAB HEMETOLOGY METHOD 12/11/2024 5:28 PM EDT [facility] Monocytes Relative 5.0 % LAB HEMETOLOGY METHOD 12/11/2024 5:28 PM EDT [facility] Eosinophils Relative 1.4 % LAB HEMETOLOGY METHOD 12/11/2024 5:28 PM EDT [facility] Basophils Relative 0.4 % LAB HEMETOLOGY METHOD 12/11/2024 5:28 PM EDT [facility] Immature Granulocytes Relative 0.3 % LAB HEMETOLOGY METHOD 12/11/2024 5:28 PM EDT [facility] Neutrophils Absolute 6.11 1.50 - 7.00 K/mcL LAB HEMETOLOGY METHOD 12/11/2024 5:28 PM EDT [facility] Lymphocytes Absolute 2.90 1.00 - 5.00 K/mcL LAB HEMETOLOGY METHOD 12/11/2024 5:28 PM EDT [facility] Monocytes Absolute 0.49 0.20 - 1.00 K/mcL LAB HEMETOLOGY METHOD 12/11/2024 5:28 PM EDT [facility] Eosinophils Absolute 0.14 0.00 - 0.50 K/mcL LAB HEMETOLOGY METHOD 12/11/2024 5:28 PM EDT [facility] Basophils Absolute 0.04 0.00 - 0.20 K/mcL LAB HEMETOLOGY METHOD 12/11/2024 5:28 PM EDT [facility] Immature Granulocytes Absolute 0.03 0.00 - 0.03 K/mcL LAB HEMETOLOGY METHOD 12/11/2024 5:28 PM EDT [facility] Blood Venous blood specimen / Unknown Venipuncture / Unknown 12/11/2024 4:40 PM EDT 12/11/2024 5:21 PM EDT us Leobardo Tavares MD LAB BLOOD ORDERABLES Final Result [facility] [address] [place] [address], * (ABNORMAL) Basic metabolic panel (12/11/2024 4:40 PM EDT) Sodium 138 133 - 145 mmol/L LAB CHEMISTRY METHOD 12/11/2024 5:48 PM EDT [facility] Potassium 3.3(L) 3.5 - 5.5 mmol/L LAB CHEMISTRY METHOD 12/11/2024 5:48 PM EDT [facility] Chloride 102 96 - 110 mmol/L LAB CHEMISTRY METHOD 12/11/2024 5:48 PM [facility] CO2 31 21 - 32 mmol/L LAB CHEMISTRY METHOD 12/11/2024 5:48 PM [facility] Anion Gap 5 3 - 11 LAB CHEMISTRY METHOD 12/11/2024 5:48 PM [facility] Glucose 106(H) 70 - 100 mg/dL LAB CHEMISTRY METHOD 12/11/2024 5:48 PM [facility] BUN 12 5 - 25 mg/dL LAB CHEMISTRY METHOD 12/11/2024 5:48 PM [facility] Creatinine 0.76 0.50 - 1.10 mg/dL LAB CHEMISTRY METHOD 12/11/2024 5:48 PM [facility] eGFR 96 >=60 mL/min/1. 73m2 LAB CHEMISTRY METHOD 12/11/2024 5:48 PM T [facility] Comment:Calculation based on the Chronic Kidney Disease Epidemiology Collaboration (CKD-EPI) equation refit without adjustment for race. BUN/Creatinine Ratio 15.8 LAB CHEMISTRY METHOD 12/11/2024 5:48 PM [facility] Calcium 9.7 8.5 - 10.5 mg/dL LAB CHEMISTRY METHOD 12/11/2024 5:48 PM [facility] Blood Venous blood specimen / Unknown Venipuncture / Unknown 12/11/2024 4:40 PM EDT 12/11/2024 5:21 PM EDT us Leobardo Tavares MD LAB BLOOD ORDERABLES Final Result [facility] [address] [place] [address], * XR Chest 2 Views (12/11/2024 3:38 PM EDT) Anatomical Region Laterality Modality Body Radiographic Sonal ging 12/11/2024 3:41 PM EDT Impressions 12/11/2024 3:42 PM EDT Impression: No active pulmonary process identified. Telerad PA ([id number]) -------- FINAL REPORT -------- Dictated By: Lilia Agarwal Dictated Date: 12/11/2024 15:41 ET Assigned Physician: Lilia Agarwal Reviewed and Electronically Signed By: Lilia Agarwal Signed Date: 12/11/2024 15:42 ET Workstation ID: [id number] Transcribed By: Self Edit Transcribed Date: 12/11/2024 [...] No active pulmonary process identified. Telerad PA ([id number]) -------- FINAL REPORT -------- Dictated By: Lilia Agarwal Dictated Date: 12/11/2024 15:41 ET Assigned Physician: Lilia Agarwal Reviewed and Electronically Signed By: Lilia Agarwal Signed Date: 12/11/2024 15:42 ET Workstation ID: [id number] Transcribed By: Self Edit Transcribed Date: 12/11/2024 [...] Final Result from Last 3 Months Insurance [facility] Care Teams Tax Examining Technician Relationship Specialty Start Date End Date Beth Donnelly MD [address] [place] [phone] PCP - General Internal Medicine 10/05/24
[2024-12-26 13:48] LABS: Anion Gap 11 (12-20); Blood Urea Nitrogen 16 mg/dL (9-16); Calcium 9.5 mg/dL (8.4-10.2); Carbon Dioxide 29 mmol/L (22-29); Chloride 105 mmol/L (96-108); Estimated Glomerular Filt Rate > 60; Potassium 3.8 mmol/L (3.3-5.1); Sodium 141 mmol/L (135-145)
== END 2024-12-26 11:53 | disposition home or self-care (01) ==
LOC: HO.HHCL 11:52
PROVIDERS: PCP Internal Medicine; Visit Provider Student in an Organized Health Care Education/Training Program
DX: E87.6 Hypokalemia (principal)
CPT/HCPCS: 36415; 80048

== ENCOUNTER → 2025-05-02 08:50 | Outpatient (REF) | payer OTHER, SELFPAY ==
--- OUTSIDE RECORDS SUMMARY | 2025-05-02 09:15 | XMS_ITS | Encounter Summary ---
Author Organization [employer] Address [address] [place] [address] [address] [place] [address] Care Team Providers Care Structural Steel Trades Worker Name Role Phone Beth Donnelly MD Primary Care Provide r Encounter Details Date Type Department Care Team (Late st Contact Info) Description 04/22/2022 Abstract [facility] [address] [place] [address] Dental, Provider, DDS Social History Tobacco Use [...] Care Team (Late st Contact Info) Description 05/10/2025 1:45 PM EST Office Visit [facility] [address] [place] [address] Beth Donnelly MD [address] [place] [address] 08/20/2025 8:00 AM EDT Office Visit [facility] [address] [place] [address] Jenn Lawler documented as of this encounter Procedures Procedure [...] on filedocumented in this encounter Care Teams Structural Steel Trades Worker Relationship Specialty Start Date End Date Beth Donnelly MD [address] [place] [phone] PCP - General Family Medicine 05/01/19 documented as of this encounter
--- OUTSIDE RECORDS SUMMARY | 2025-05-02 09:15 | XMS_ITS | Encounter Summary ---
Author Organization [employer] Address [address] [facility] [address]t [place] [address] Care Team Providers Care Clean Room Assembler Name Role Phone Beth Donnelly MD Primary Care Provide r Reason for Visit * Reason Onset Date Comments DR LAWLER PT 02/22/2025 Encounter Details Date Type Department Care Team (Late st Contact Info) Description 02/22/2025 Telephone [facility] [address] [place] [address] PT Social History Tobacco Use Types Packs/Day Years [...] encounter Miscellaneous Notes * Telephone Encounter - Luis Miguel Marte - 02/22/2025 9:09 AM EDT PT called to request for script to be sent over to the pharmacy. documented in this encounter Plan of Treatment Upcoming Encounters Date Type Department Care Team (Late st Contact Info) Description 05/10/2025 1:45 PM EST Office Visit [facility] [address] [place] [phone] Beth Donnelly MD [address] [place] [address] 08/20/2025 8:00 AM EDT Office Visit [facility] [address] [place] [phone] Jenn Lawler documented as of this encounter Visit Diagnoses Not on filedocumented in this encounter Additional Health Concerns Assessment Noted Time PHQ-9 Depression Total Score: 0 12/16/19 25 9:12 AM EDT documented as of this encounter Care Teams Clean Room Assembler Relationship Specialty Start Date End Date Beth Donnelly MD [address] [place] [phone] PCP - General Family Medicine 05/01/19 documented as of this encounter
--- OUTSIDE RECORDS SUMMARY | 2025-05-02 09:15 | XMS_ITS | Encounter Summary ---
Author Organization [employer] Address [address] [place] [address] [place], [place] [address] Care Team Providers Care Perinatal Technician Name Role Phone Beth Donnelly MD Primary Care Provide r Encounter Details Date Type Department Care Team (Latest Contact Info) Description 07/28/2021 Abstract [facility] Dental, Provider, DDS Social History [...] Description 05/10/2025 1:45 PM EST Office Visit [facility] [address] [place] [phone] Beth Donnelly MD [address] [place] [phone] 08/20/2025 8:00 AM EDT Office Visit [facility] [address] [place] [address] Jenn Lawler documented as of this encounter Visit Diagnoses Not on filedocumented in this encounter Care Teams Perinatal Technician Relationship Specialty Start Date End Date Beth Donnelly MD [address] [place] [phone] PCP - General Family Medicine 05/01/19 documented as of this encounter
--- OUTSIDE RECORDS SUMMARY | 2025-05-02 09:15 | XMS_ITS | Encounter Summary ---
Author Organization [employer] Address [address] [place] [address] [address] [address] Care Team Providers Care Substation Operator Conversion Name Role Phone Beth Donnelly MD Primary Care Provide r Encounter Details Date Type Department Care Team (Latest Contact Info) Description 10/11/2018 Abstract [facility] Dental, Provider, DDS Social History [...] Description 05/10/2025 1:45 PM EST Office Visit [facility] [address] [place] [phone] Beth Donnelly MD [address] [place] [address] 08/20/2025 8:00 AM EDT Office Visit [facility] [address] [place] [address] Jenn Lawler documented as of this encounter Visit Diagnoses Not on filedocumented in this encounter Care Teams Substation Operator Conversion Relationship Specialty Start Date End Date Beth Donnelly MD [address] [place] [address] [phone] PCP - General Family Medicine 05/01/19 documented as of this encounter
--- OUTSIDE RECORDS SUMMARY | 2025-05-02 09:15 | XMS_ITS | Encounter Summary ---
Author Organization [employer] Address [address] [facility] 7t [place] [address] Care Team Providers Care Solo Truck Driver Name Role Phone Beth Donnelly MD Primary Care Provide r Reason for Visit * Reason Onset Date Comments DR LAWLER 02/20/2025 Encounter Details Date Type Department Care Team (Late st Contact Info) Description 02/20/2025 Telephone [facility] [address] [place] [address] Social History Tobacco Use Types Packs/Day Years [...] Telephone Encounter - Luis Miguel Marte - 02/20/2025 3:00 PM EDT PT requesting for mouthwash to be sent over. Stating she is having some pain. She will also like a call to know if something will be sent ton pharmacy. documented in this encounter Plan of Treatment Upcoming Encounters Date Type Department Care Team (Late st Contact Info) Description 05/10/2025 1:45 PM EST Office Visit [facility] [address] [place] [phone] Beth Donnelly MD [address] [place] [address] 08/20/2025 8:00 AM EDT Office Visit [facility] [address] [place] [address] Jenn Lawler documented as of this encounter Visit Diagnoses Not on filedocumented in this encounter Additional Health Concerns Assessment Noted Time PHQ-9 Depression Total Score: 0 12/16/19 25 9:12 AM EDT documented as of this encounter Care Teams Solo Truck Driver Relationship Specialty Start Date End Date Beth Donnelly MD [address] [place] [phone] PCP - General Family Medicine 05/01/19 documented as of this encounter
--- OUTSIDE RECORDS SUMMARY | 2025-05-02 09:15 | XMS_ITS | Clinical Summary ---
Author Organization [facility] Address [address] [place] [address] Phone Care Team Providers Care Technical Translator Name Role Phone Beth Donnelly MD Primary Care Provide r Allergies Active Allergy Reactions Criticality Noted Date Comments Ibuprofen Angioedema High 08/20/2024 Medications albuterol HFA (PROAIR HFA ; PROVENTIL HFA ; VENTOLIN HFA) 90 mcg/actuation inhaler Inhale 2 puffs by mouth every 4 (four) hours if needed for wheezing. 18 g 12/11/2024 Active Active Problems No known active problems Medical History Medical History Date Comments HTN [...] Last Done Comments Breast Cancer Screening 1974 Colorectal Cancer Screening: Colonoscopy 1974 DTaP,Tdap,and Td Vaccines (1 - Tdap) 1993 Hepatitis B Vaccines (1 of 3 - 19+ 3-dose series) 1993 HIV Screening 05/02/2022 Hepatitis C Screening 05/02/2022 Social Influencers of Health Screening 05/02/2022 Depression Screening 05/31/2024 Pneumococcal Vaccine: 50+ Years (1 of 1 - PCV) 2024 RSV Immunization Adult Patients (1 - Risk 50-74 years 1-dose series) 2024 Zoster Vaccines (2 of 2) 11/22/2024 09/27/2024 COVID-19 Vaccine (4 - 2024- season) 2025 04/28/2021, 07/26/2020, 07/05/2020 Influenza Vaccine (#1) 2025 , 09/09/2021, 03/27/2020, [...] Procedure Name Priority Date/Time Associated Diagnosis Comments BASIC METABOLIC PANEL STAT 12/11/2024 4:40 PM EDT from Last 3 Months or Most Recently Relevant to Health Maintenance Results * (ABNORMAL) Basic metabolic panel (12/11/2024 4:40 PM EDT) Sodium 138 133 - 145 mmol/L LAB CHEMISTRY METHOD 12/11/2024 5:48 PM [facility] Potassium 3.3(L) 3.5 - 5.5 mmol/L LAB CHEMISTRY METHOD 12/11/2024 5:48 PM [facility] Chloride 102 96 - 110 mmol/L LAB CHEMISTRY METHOD 12/11/2024 5:48 PM [facility] CO2 31 21 - 32 mmol/L LAB CHEMISTRY METHOD 12/11/2024 5:48 PM [facility] Anion Gap 5 3 - 11 LAB CHEMISTRY METHOD 12/11/2024 5:48 PM [facility] Glucose 106(H) 70 - 100 mg/dL LAB CHEMISTRY METHOD 12/11/2024 5:48 PM [facility] BUN 12 5 - 25 mg/dL LAB CHEMISTRY METHOD 12/11/2024 5:48 PM [facility] Creatinine 0.76 0.50 - 1.10 mg/dL LAB CHEMISTRY METHOD 12/11/2024 5:48 PM [facility] eGFR 96 >=60 mL/min/1. 73m2 LAB CHEMISTRY METHOD 12/11/2024 5:48 PM [facility] Comment:Calculation based on the Chronic Kidney Disease Epidemiology Collaboration (CKD-EPI) equation refit without adjustment for race. BUN/Creatinine Ratio 15.8 LAB CHEMISTRY METHOD 12/11/2024 5:48 PM EDT [facility] Calcium 9.7 8.5 - 10.5 mg/dL LAB CHEMISTRY METHOD 12/11/2024 5:48 PM EDT [facility] Blood Venous blood specimen / Unknown Venipuncture / Unknown 12/11/2024 4:40 PM EDT 12/11/2024 5:21 PM EDT us Leobardo Tavares MD LAB BLOOD ORDERABLES Final Result [facility] [address] [place] [address], from Last 3 Months or Most Recently Relevant to Health Maintenance Insurance [facility] [employer] Care Teams Technical Translator Relationship Specialty Start Date End Date Beth Donnelly MD [address] [phone] PCP - General Internal Medicine 10/05/24
--- OUTSIDE RECORDS SUMMARY | 2025-05-02 09:15 | XMS_ITS | Encounter Summary ---
Author Organization [employer] Address [address] [facility] [address], [place] [address] Care Team Providers Care Hair Clipper Power Name Role Phone Beth Donnelly MD Primary Care Provide r Reason for Visit * Reason Comments Pre-visit Planning SDOH screening compl eted on 02/28/2025 Encounter Details Date Type Department Care Team ([facility] Contact Info) Description 05/01/2025 Patient Outreach [facility] [address] [place], [place] [phone] Beth Donnelly MD [address] [place] [address] Pre-visit Planning (SDOH screening completed on 02/28/2025) Social History Tobacco Use Types Packs/Day Years Used Date Smoking Tobacco: Never Passive Smoke Exposure: Never Smokeless Tobacco: Never Alcohol Use Standard Drinks/Week Comments Defer 0 (1 standard drink = 0.6 oz pur e alcohol) Depression Answer Date Recorded Patient Health Questionnaire-9 Score 0 02/28/2025 Patient Health Questionnaire-9 Score 0 02/28/2025 Last PHQ-9: Questionnaire Data Not on file 1 Housing Stability Answer Date Recorded What is your housing situation today? I have juni maxwell 12/15/[address] you li [...] Date Recorded Patient Health Questionnaire-2 Score 0 02/28/2025 Internet Access Answer Date Recorded Internet Access [...] encounter Progress Notes * Paula Eldridge - 05/01/2025 10:17 AM EST CC Paula. Placed outbound call to patient to complete pre-visit planning. No answer at this time. Patient name and were not confirmed. CC left voicemail requesting return call. Direct contact information provided. documented in this encounter Plan of Treatment Upcoming Encounters Date Type Department Care Team (Late st Contact Info) Description 05/10/2025 1:45 PM EST Office Visit [facility] [address] [place] [address] Beth Donnelly MD [address] [place] [address] 08/20/2025 8:00 AM EDT Office Visit [facility] [address] [place] [address] Jenn Lawler documented as of this encounter Visit Diagnoses Not on filedocumented in this encounter Additional Health Concerns Assessment Noted Time PHQ-9 Depression Total Score: 0 02/29/20 25 10:13 AM EDT documented as of this encounter Care Teams Hair Clipper Power Relationship Specialty Start Date End Date Beth Donnelly MD [address] [place] [address] PCP - General Family Medicine 05/01/19 documented as of this encounter
--- OUTSIDE RECORDS SUMMARY | 2025-05-02 09:15 | XMS_ITS | Clinical Summary ---
Author Organization [employer] Address [address] [facility] 7t [place] [address] Care Team Providers Care Cash Sales Audit Clerk Name Role Phone Beth Donnelly MD Primary Care Provide r Allergies Active Allergy Reactions Criticality Noted Date Comments Aspirin Rash Low 02/18/2016 Other reaction(s): Bruising Other Reaction(s): bruising Ibuprofen Angioedema High 12/03/2023 Latex 02/12/2025 Other Reaction(s): skin reddness Prednisone 11/23/2017 Other reaction(s): Rash, Rash Other Reaction(s): facial and neck swelling Medications * This document contains information received from the source organization and may not represent a complete record from that organization. methocarbamol (Robaxin) 750 MG tabletIndication s:Chronic midline low back pain with left-sided sciatica Take 1 tablet (750 mg) by mouth 4 times daily for 10 days. 40 tablet 4 Active losartan-hydroCH LOROthiazide (Hyzaar) 50-12.5 MG tabletIndication s:Uncontrolled hypertension Take 1 tablet by mouth Once per day. 30 tablet 11 5 08/25/19 26 Active Blood Pressure Monitoring (Blood Pressure Cuff) miscIndications: Uncontrolled hypertension 1 each Once daily. 1 each 5 Active famotidine (Pepcid) 20 MG tabletIndication s:Gastroesophage al reflux disease, unspecified whether esophagitis present Take 1 tablet (20 mg) by mouth 2 times daily. 60 tablet 11 5 10/18/19 26 Active albuterol 108 (90 Base) MCG/ACT inhaler Inhale 2 puffs every 4 (four) hours if needed. 5 Active Delsym 30 MG/5ML liquid TAKE 10 ML (30 MG) BY MOUTH IF NEEDED IN THE MORNING, AT NOON, IN THE EVENING, AND AT BEDTIME FOR COUGH FOR UP TO 7 DAYS. 120 mL 5 Active potassium chloride CR (Klor-Con M20) 20 MEQ ER tablet Take 1 tablet (20 mEq) by mouth Once per day. Do not crush or chew. 2 tablet 5 12/16/19 26 Active acetaminophen (Tylenol 8 Hour) 650 MG ER tabletIndication s:Subacute pansinusitis Take 1 tablet (650 mg) by mouth every 8 (eight) hours if needed for mild pain. Do not crush, chew, or split. 30 tablet 5 Active topiramate (Topamax) 25 MG tabletIndication s:Class 3 severe obesity due to excess calories with serious comorbidity and body mass index (BMI) of 40.0 to 44.9 in adult (HCC) Take 1 tablet (25 mg) by mouth Once per day. 30 tablet 1 5 12/27/19 26 Active phentermine 15 MG capsuleIndicatio ns:Class 3 severe obesity due to excess calories with serious comorbidity and body mass index (BMI) of 40.0 to 44.9 in adult (HCC) Take 1 capsule (15 mg) by mouth before breakfast. 30 capsule 2 5 05/29/20 25 Active fluticasone (Flonase) 50 MCG/ACT nasal sprayIndications :Chronic pansinusitis Administer 1-2 sprays into each nostril Once per day for 14 days. Shake gently. Before first use, prime pump. After use, clean tip and replace cap. 16 g 5 Active cetirizine (ZyrTEC) 10 MG tablet TAKE 1 TABLET (10 MG) BY MOUTH ONCE PER DAY. 90 tablet 5 Active amoxicillin (Amoxil) 500 MG capsule Take 1 capsule (500 mg) by mouth every 8 (eight) hours for 7 days. 21 capsule 5 04/27/20 25 acetaminophen (Tylenol 8 Hour) 650 MG ER tablet Take 1 tablet (650 mg) by mouth every 8 (eight) hours if needed for moderate pain for up to 10 days. Do not crush, chew, or split. 15 tablet 5 04/30/20 25 Active Problems Problem Noted Date Diagnosed Date Chronic pansinusitis 02/28/2025 Assessment & Plan (02/28/2025 1:30 PM EDT): I prescribed for patient Flonase to use daily and refer her to ENT Episode of apnea 02/28/2025 Assessment & Plan (02/28/2025 1:31 PM EDT): I will put order in for sleep study Hypersomnia 02/28/2025 Assessment & Plan (02/28/2025 1:31 PM EDT): I will put order in for sleep study Oral thrush 12/26/2024 Assessment & Plan (12/26/2024 1:15 PM EDT): I will prescribe clotrimazole Subacute pansinusitis 12/23/2024 Assessment & Plan (12/23/2024 [...] causing symptoms Hypokalemia 12/16/2024 Assessment & Plan (12/26/2024 1:15 PM EDT): On review of chart blood work revealed low potassium I will repeated today and contact patient with results Assessment & Plan (12/16/2024 3:12 PM EDT): [...] cardiology Primary hypertension 09/01/2024 Assessment & Plan (12/26/2024 1:15 PM EDT): Controlled continue with same interventions Assessment & Plan (09/01/2024 4:41 PM EDT): [...] 44.9 in adult 09/01/2024 Assessment & Plan (02/28/2025 1:30 PM EDT): Extensive counseling about healthy diet and exercise done today I went down again on her phentermine dose to 15mg daily Plan is to follow-up with her in 4 to 6 weeks in person to with her and discuss again about side effects of the medication Assessment & Plan (12/26/2024 1:16 PM EDT): Extensive counseling done today I will go up on phentermine to 37.5 mg daily and prescribe for her topiramate 25 mg daily plan is for her to come back in 4 to 6 weeks for weight monitoring Assessment & Plan (10/17/2024 4:37 PM EDT): [...] (gastroesophageal reflux disease) 4 Assessment & Plan (10/17/2024 4:37 PM EDT): [...] fatigue 01/20/2023 Polyarthralgia 01/20/2023 Loud snoring 01/20/2023 Assessment & Plan (02/28/2025 1:31 PM EDT): I will put order in for sleep study Positive JIM (antinuclear antibody) 01/20/2023 Spasm of cervical paraspinous muscle 12/21/2022 Sialoadenitis 12/21/2022 Edema of face 12/21/2022 Angioedema 12/21/2022 Acute back pain with sciatica 11/26/2017 Chronic low back pain 04/10/2015 Ankle pain 04/10/2015 Encounters Date Type Department Care Team Description 05/01/2025 Patient Outreach [facility] [address] [place] [phone] Beth Donnelly MD Pre-visit Planning (SDOH screening completed on 02/28/2025) 04/20/2025 8:30 AM EST Office Visit [facility] [address] [place] [address] Bowman-Garvey, Ivonne, DDS Acute pulpitis (Primary Dx) 04/12/2025 1:00 PM EST Office Visit [facility] [address] [place] [address], [place] [address] Bowman-Garvey, Ivonne, DDS Tooth sensitivity to cold (Primary Dx); Gingival recession, localized 03/17/2025 Refill [facility] [address] [place] [address], [place] [address] Jim Barboza MD 02/28/2025 10:00 AM EDT Telemedicine [address] [address] Beth Donnelly MD Class 3 severe obesity due to excess calories with serious comorbidity and body mass index (BMI) of 40.0 to 44.9 in adult (HCC); Chronic pansinusitis; Loud snoring; Episode of apnea; Hypersomnia; Dietary counseling; Exercise counseling 02/28/2025 Travel 02/27/[address] [address] Beth Donnelly MD Chart Prep 02/22/2025 Orders Only [facility] [address] [place] [address], [place] [phone] BowmanIvonne Mast, DDS 02/22/2025 Telephone [facility] [address] [place] [phone] PT 02/20/2025 Telephone [facility] [address] [place] [phone] 02/20/2025 Patient Outreach [address] [phone] Beth Donnelly MD Pre-visit Planning (SDOH screening completed on 12/15/2024) 02/19/2025 9:00 AM EDT Office Visit [facility] [address] [place] [address] Lawler Jenn Subgingival dental calculus (Primary Dx); Dental plaque; Staining of teeth 02/12/2025 11:30 AM EDT Office Visit [facility] [address] [place] [address] Bowman-Garvey, Ivonne, DDS Symptomatic irreversible pulpitis (Primary Dx); Primary occlusal trauma from Last 3 Months Immunizations Immunization Administration [...] the past 12 months, has t he [employer], gas, oil or water company threatened to [...] Sign Reading Time Taken Comments Blood Pressure 132/78 04/20/2025 8:29 AM EST Pulse 82 12/26/2024 11:06 AM EDT Temperature [...] Description 05/10/2025 1:45 PM EST Office Visit [facility] [address] [place] [address] Beth Donnelly MD [address] [place] [address] 08/20/2025 8:00 AM EDT Office Visit [facility] [address] [place] [address] Jenn Lawler Health Maintenance Due Date Last Done Comments CT Colonography 1975 Colonoscopy 1975 Colorectal Cancer Screening 1975 FIT DNA/Cologuard 1974 FIT 1975 FOBT 1975 Sigmoidoscopy 1975 Family Planning (PISQ) 1989 Hepatitis C Screening 1992 DTaP/Tdap/Td Vaccines (1 - Tdap) 1993 Hepatitis B Vaccines (1 of 3 - 19+ 3-dose series) 1993 Pneumococcal Vaccine: 50+ Years (1 of 1 - PCV) 2024 RSV Patients and Patients Aged 60 years or older (1 - Risk 50-74 years 1-dose series) 2024 COVID-19 Vaccine (4 - season) 2025 04/28/2021, 07/26/2020, 07/05/2020 Influenza Vaccine (#1) 2025 , 09/09/2021, 03/27/2020, Additional history exists Dental Oral Exam 08/20/2025 02/19/2025, , 11/25/2023, Additional history exists Dental Prophylaxis 08/20/2025 02/19/2025, 0 07/25/2024, 11/25/2023, Additional history exists Mammogram 08/29/2025 08/29/2024, 03/0 07/2023, 07/25/2022, Additional history exists Disability Screening 12/23/2025 12/23/2024 Dental X-Ray: Bitewings 02/20/2026 02/20/20 25, 02/12/2025, 11/25/2023, Additional history exists Alcohol/Substance Use Screening 02/28/2026 02/28/2025 Depression Screening 02/28/2026 02/28/2025, 02/29/20 SDOH Screening 02/28/2026 02/28/2025 Tobacco Screening 04/20/2026 04/20/2025 Dental X-Ray: Full Mouth 11/01/2027 025, 07/28/2021, 02/18/2016 Cervical Cancer Screening 08/24/2029 HPV/Cotest 08/24/2029 08/24/2024, 07/20/2019 Pap Smear 08/24/2029 08/24/2024 Lipid Panel 09/13/2029 09/13/2024, 01/30/2023 HIV Screening Completed 06/24/2019 Zoster Vaccines Completed 01/02/2025, 09/27/2024 HIB Vaccines Aged Out No longer eligi [...] Procedure Name Priority Date/Time Associated Diagnosis Comments NO CHARGE VISIT Routine 04/20/2025 8:30 AM EST CASE PRESENTATION, DETAILED AND EXTENSIVE TREATMENT PLANNING Routine 04/12/2025 1:00 PM EST Tooth sensitivity to cold 19 B(V) RESIN-BASED COMPOSITE - 1 SURF, POSTERIOR Routine 04/12/2025 1:00 PM EST Tooth sensitivity to cold PROPHYLAXIS - ADULT Routine 02/19/2025 9 :00 AM EDT Subgingival dental calculus Dental plaque Staining of teeth BITEWINGS - 4 RADIOGRAPHIC IMAGES Routine 02/19/2025 9:00 AM EDT Subgingival dental calculus CASE PRESENTATION, DETAILED AND EXTENSIVE TREATMENT PLANNING Routine 02/19/2025 9:00 AM EDT ORAL HYGIENE INSTRUCTIONS Routine 02/19/2025 9:00 AM EDT Subgingival dental calculus Dental plaque Staining of teeth PERIODIC ORAL EVALUATION - ESTABLISHED PATIENT Routine 02/19/2025 9:00 AM EDT CASE PRESENTATION, DETAILED AND EXTENSIVE TREATMENT PLANNING Routine 02/12/2025 11:30 AM EDT Symptomatic irreversible pulpitis BITEWING - SINGLE RADIOGRAPHIC IMAGE Routine 02/12/2025 11:30 AM EDT Symptomatic irreversible pulpitis INTRAORAL - PERIAPICAL EACH ADDITIONAL RADIOGRAPHIC IMAGE Routine 02/12/2025 11:30 AM EDT Symptomatic irreversible pulpitis INTRAORAL - PERIAPICAL FIRST RADIOGRAPHIC IMAGE Routine 02/12/2025 11:30 AM EDT Symptomatic irreversible pulpitis PALLIATIVE (EMERGENCY) TREATMENT OF DENTAL PAIN - MINOR PROCEDURE Routine 02/12/2025 11:30 AM EDT Symptomatic irreversible pulpitis PANORAMIC RADIOGRAPHIC IMAGE Routine 10/30/2024 3:00 PM EDT LIPID PANEL, STANDARD Routine 09/13/2024 9:28 AM EDT Primary hypertension BI MAMMOGRAM SCREENING TOMOSYNTHESIS BILATERAL Routine 08/29/2024 2:56 PM EDT HPV DNA, LOW/HIGH RISK Routine 08/24/2024 11:34 AM EDT PAP SMEAR Routine 08/24/2024 11:34 AM EDT Pap smear for cervical cancer screening ZZZ HISTORICAL HIV AB/AG Routine 06/24/2019 9:00 AM EST from Last 3 Months or Most Recently Relevant to Health Maintenance Results * (ABNORMAL) Lipid Panel, Standard (09/13/2024 9:28 AM EDT) Triglycerides 122 <150 mg/dL [facility] Comment:Desirable Triglyceri de: less than 150 mg/dLBorderline High Triglyceride 150-199 mg/dLHigh Triglyceride: 200-499 mg/dLVery High Triglyceride: greater than or equal to 5OO mg/dL Cholesterol 212(H) <200 mg/dL [facility] Comment:Desirable Cholestero l: less than 200 mg/dLBorderline High Cholesterol: 200-239 mg/dLHigh Cholesterol: greater than 239 mg/dL LDL Cholesterol Calculated 137(H) <100 mg/dL [facility] Comment:Desirable LDL: less than 100 mg/dLNear Optimal/Above Optimal LDL: 110- 129 mg/dLBorderline High LDL: 130-159 mg/dLHigh LDL: 160-189 mg/dLVery High LDL: greater than or equal to 190 mg/dL HDL Cholesterol 51 >40 mg/dL [facility] Comment:Desirable HDL: great er than 40 mg/dL Note: This HDL assay may give artificially low results in patients with liver disease. Blood Venous blood specimen / Unknown 09/13/2024 9:28 AM EDT 09/13/2024 11:10 AM EDT us Beth Gomez MD LAB BLOOD ORDERABLES Final Result [facility] [address] [place] [address] [phone] * BI Mammogram Screening Tomosynthesis Bilateral (08/29/2024 2:56 PM EDT) Anatomical Region Laterality Modality Breast Bilateral Mammography 08/29/2024 2:56 PM EDT Narrative 09/03/2024 8:11 PM EDT [facility] [address] [place], [place] [address] Mammography Report Signed Patient: Aura Childress MR#: [id number] : 1975 Acct:[id number] Age/Sex: 49 / F ADM Date: 08/29/24 Loc: HO.MAMMO Attending Dr: Beth Gomez MD Ordering Physician: Beth Donnelly MD Results: 1Negative Date of Service: 08/29/24 Follow Up: 1 Year From Orig ina Mammogram Procedure(s): MM tomosynthesis screening BI Accession Number(s): [id number] cc: Beth Donnelly MD EXAMINATION: MM SCREENING [...] OV> 09/03/242007 DD/ 1456 TD/TT: 08/29/24 1518 Plant Operations Manager: Procedure Note Donotshalominterpreter, Image - 09/03/20[facility] [address] [place] [address] Mammography Report Signed Patient: Aura Childress AMR#: [id number] : 1975Acct:[id number] Age/Sex: 49 / FADM Date: 08/29/24 Loc: HO.MAMMO Attending Dr: Beth Gomez MD Ordering Physician: Beth Donnellyesults: 1Negative Date of Service: 08/29/24Follow Up: 1 Year From Orig inal Mammogram Procedure(s): MM tomosynthesis screening BI Accession Number(s): [id number] cc: Beth Donnelly MD EXAMINATION: MM SCREENING [...] in OV> 09/03/242007 DD/ 1456 TD/TT: 08/29/24 3968 Plant Operations Manager: Beth Gomez MD IMG BI PROCEDURES Rhett elliott Result - Final * HPV DNA, Low/High Risk (08/24/2024 11:34 AM EDT) HPV High Risk Negative Negative [facility] HPV Genotype 16 Negative Negative [facility] HPV Genotype 18 Negative Negative [facility] Comment:HPV testing performe d at [facility] (CLIA#[id number]), [address] [place] [address].Testing for HPV was performed using the [employer]system. The presence of HPV in the female [...] Gomez MD LAB BLOOD ORDERABLES Final Result [facility] [address] [place] [phone] * Pap Smear (08/24/2024 11:34 AM EDT) Swab 08/24/2024 11:3 4 AM EDT 08/25/2024 6:50 AM EDT Narrative [facility] - 08/30/2024 9:34 AM EDT ----- ------- Name: Aura Childress Age/Sex: 49/F : 1975 Unit#: [id number] Attend Dr: Beth Donnelly MD Re08/24/24 Status: DEP REF Location: [facility] Disch: ----- ------- SPEC : [id number] RECD: 08/25/24 STATUS: SHANA REID NUM: [id number] KAREN: 08/24/24-11[address] [facility] [address]: Beth Donnelly MD ENTERED: 08/25/2487 SP TYPE: Pap Smr OTHR DR: ORDERED: [...] ORDERABL ES Final Result Performing Organization Address [facility]/ZIP Co de Phone Number [facility] [address] [place] [address] [phone] * HIV AB/AG (06/24/2019 9:00 AM EST) [facility] HIV AG/AB NONREACTIVE NR [facility] ON LAB [...] of detection of this assay. The [employer] HIV Ag/Ab Combo assay result and supplemental assay results should be interpreted in conjunction with the patient's clinical presentation, history and other laboratory results. If the results are inconsistent with clinical evidence, additional testing is suggested to confirm the result. 06/24/2019 9:00 AM EST us Beth Gomez MD HISTORICAL/NON ORDERA BLE LABS Final Result Performing Organization Address City/[facility]/ZIP Co de Phone Number [facility] [address] from Last 3 Months or Most Recently Relevant to Health Maintenance Insurance [facility] 3 DENTAL - HSN PARTIAL (MEDICAID) Care Teams Cash Sales Audit Clerk Relationship Specialty Start Date End Date Beth Donenlly MD [address] [place] [phone] PCP - General Family Medicine 05/01/19
--- OUTSIDE RECORDS SUMMARY | 2025-05-02 09:15 | XMS_ITS | Encounter Summary ---
Author Organization [employer] Address [address] [address] Care Team Providers Care Boat Designer Name Role Phone Beth Donnelly MD Primary Care Provide r Encounter Details Date Type Department Care Team ([facility] st Contact Info) Description 12/15/2024 Orders Only [facility] [address] [place] [address] Beth Bob MD [address] [place] [address] Hypokalemia (Primary Dx) Social History Tobacco Use Types Packs/Day Years [...] 9:12 AM PAPOT Wilfrido Rizvi MA * Feeling down, depressed, or hopeless Answer Date of Assessment Author Not at all 12/15/2024 9:12 AM Wilfrido Chaney MA * Trouble falling or staying asleep, [...] 9:12 AM Wilfrido Chaney MA * Feeling bad about yourself - [...] 12/15/2024 9:12 AM Wilfrido Chaney MA * Thoughts that you would be better off or hurting yourself in some way Answer Date of Assessment Author Not at all 12/15/2024 9:12 AM PAPOT Wilfrido Rizvi MA * Patient Health Questionnaire-9 Score Answer Date of Assessment Author 0 12/15/2024 9:12 AM Wilfrido Chaney MA * Over the last 2 weeks, how often have you been bothered by any of the following problems? Question Answer Date of Assessment Author Feeling nervous, anxious, or on edge 0 12/15/2024 9:12 AM PAPOT Sheyla Rizvi MA Not being able to stop or co ntrol worrying 0 12/15/2024 9:12 AM Sheyla Chaney MA Worrying too much about diff erent things 0 12/15/2024 9:12 AM Sheyla Chaney MA Trouble relaxing 0 12/15/2024 9:12 AM PAPOT Sheyla Bustos MA Being so restless that it is hard to sit still 0 12/15/2024 9:12 AM Sheyla Chaney MA Becoming easily annoyed or irritable 0 12/15/2024 9:12 AM Sheyla Chaney MA Feeling afraid as if somethi ng awful might happen 0 12/15/2024 9:12 AM Sheyla Chaney MA CAROLE-7 Total Score 0 12/15/2024 9:12 AM Sheyla Chaney MA documented as of this encounter Plan of Treatment Upcoming Encounters Date Type Department Care Team (Late st Contact Info) Description 05/10/2025 1:45 PM EST Office Visit [facility] [address] [place] [address] Beth Donnelly MD [address] [place] [address] 08/20/2025 8:00 AM EDT Office Visit [facility] [address] [place] [address] Jenn Lawler documented as of this encounter Procedures Procedure Name Priority Date/Time Associated Diagnosis Comments BASIC METABOLIC PANEL Routine 12/26/2024 11:56 AM EDT Hypokalemia documented in this encounter Results * (ABNORMAL) Basic Metabolic Panel (12/26/2024 11:56 AM EDT) Sodium 141 135 - 145 mmol/L [facility] Potassium 3.8 3.3 - 5.1 mmol/L [facility] Chloride 105 96 - 108 mmol/L [facility] Carbon Dioxide 29 22 - 29 mmol/L [facility] Anion Gap 11(L) 12 - 20 [facility] Urea Nitrogen (BUN) 16 9 - 16 mg/dL [facility] Creatinine, Serum 0.68 0.5 - 1.4 mg/dL [facility] Estimated Glomerular Filt Rate >60 [facility] Comment:Chronic Kidney Disea se: Estimated GFR < 60 mL/min/1.22h1Cxlere Kidney Disease: Estimated GFR < 15 mL/min/1.73m2 Glucose 98 60 - 115 mg/dL [facility] Calcium 9.5 8.4 - 10.2 mg/dL [facility] Blood Venous blood specimen / Unknown 12/26/2024 11:56 AM EDT 12/26/2024 1:01 PM EDT us Beth Menjivar MD LAB BLOOD ORDERAB LES Final Result [facility] [address] [place] [address] [phone] documented in this encounter Visit Diagnoses Diagnosis Hypokalemia- Primary Hypopotassemia documented in this encounter Additional Health Concerns Assessment Noted Time PHQ-9 Depression Total Score: 0 12/16/19 25 9:12 AM EDT documented as of this encounter Care Teams Boat Designer Relationship Specialty Start Date End Date Beth Donnelly MD [address] [place] [address] PCP - General Family Medicine 05/01/19 documented as of this encounter
== END ==
LOC: HO.SL 08:50
PROVIDERS: PCP Internal Medicine; Visit Provider Internal Medicine
DX: G47.33 Obstructive sleep apnea (adult) (pediatric) (principal); R06.83 Snoring
CPT/HCPCS: 95806

== ENCOUNTER → 2025-05-02 21:00 | Outpatient (BNV) | payer OTHER, SELFPAY | PROVIDERS: PCP Internal Medicine; Visit Provider Psychiatry & Neurology Neurology | DX: G47.33 Obstructive sleep apnea (adult) (pediatric) (principal) | CPT/HCPCS: 95806 ==